=== PATIENT | female | born 1945 | race Caucasian/White ===

== ENCOUNTER → 2017-09-18 10:59 | Outpatient (CLI) | payer MEDICARE, SELFPAY ==
[2017-09-18 12:50] LABS: Hemoglobin A1c 5.5 % (4.2-6.3)
[2017-09-18 12:52] LABS: Vitamin B12 > 2000 pg/mL (211-911)
[2017-09-18 12:53] LABS: Rheumatoid Factor < 10.0 IU/mL (<15); Thyroid Stim Hormone (TSH) 1.64 uIU/mL (0.358-3.74)
[2017-09-19 14:07] LABS: SJOGREN'S Anti-SS-A test < 0.2 AI (0.0-0.9); SJOGREN'S Anti-SS-B test < 0.2 AI (0.0-0.9)
[2017-09-19 15:54] LABS: ANTINUCLEAR ANTIBODIES DIRECT Negative (Negative)
[2017-09-20 20:09] LABS: Albumin, Ur 23.4 % (.); Alpha-1-Globulin, Ur 4.6 % (.); Alpha-1-Globulins 0.2 g/dL (0.0-0.4); Alpha-2-Globulins 0.9 g/dL (0.4-1.0); Alpha-2-Globulins, Ur 14.4 % (.); Beta Globulin, Ur 23.1 % (.); Cytoplasmic Ab (C-ANCA) <1:20 titer (Neg:<1:20); Gamma Globulin 0.9 g/dL (0.4-1.8); Gamma Globulin, Ur 34.5 % (.); Immunoglobulin A 113 mg/dL (64-422); Immunoglobulin G 698 mg/dL (700-1600); Immunoglobulin M 74 mg/dL (26-217); M-Spike, Ur % Not Observed % (Not Observed); PROEL- TOTAL PROTEIN 7.2 g/dL (6.0-8.5); Total Protein, Ur 7.2 mg/dL (Not Estab.)
[2017-09-21 13:42] LABS: Perinuclear Ab (P-ANCA) <1:20 titer (Neg:<1:20)
== END ==
PROVIDERS: Family Provider Internal Medicine; PCP Internal Medicine; Visit Provider Psychiatry & Neurology Neurology
DX: G62.9 Polyneuropathy, unspecified (principal)
CPT/HCPCS: 36415; 82607; 82784; 83036; 84165; 84166; 84443; 86038; 86235; 86256; 86334; 86335; 86431

== ENCOUNTER → 2017-11-06 12:02 | Outpatient (CLI) | payer MEDICARE, MEDICAID, SELFPAY ==
--- NOTE | 2017-11-06 12:09 | MRI_ITS ---
STUDY: MRA OF THE HEAD WITHOUT CONTRAST REASON FOR EXAM: Female, 72 years old. RT EAR PULSITILE TINNITUS, BILAT HEARING LOSS TECHNIQUE: 3-D hhuw-kf-yvvnal (TOF) imaging was performed with MIPs. The study was performed unenhanced. COMPARISON: None. FINDINGS: Normal bilateral petrous carotid arteries. Normal right cavernous carotid artery with a normal supraclinoid bifurcation. Normal left cavernous carotid artery with a normal supraclinoid bifurcation. Normal right A1 segments of the anterior cerebral artery. Normal left A1 segments of the anterior cerebral artery. Normal intact anterior communicating artery (ACOM). Normal bilateral A2 segments of the anterior cerebral arteries. Normal right M1 and M2 segments of the middle cerebral arteries, with a normal M1 bifurcation. Normal left M1 and M2 segments of the middle cerebral arteries, with a normal M1 bifurcation. 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 Normal left posterior communicating artery (PCOM). Normal bilateral vertebral arteries. Normal basilar artery with a normal basilar bifurcation. The visualized bilateral superior cerebellar (SCA) arteries are normal. Normal bilateral P1, P2 and visualized P3 segments of the posterior cerebral arteries. There is no demonstrated aneurysm of the [place]. There is no major vessel occlusion or hemodynamically significant stenosis. There is no demonstrated abnormality of the visualized brain. MRI/MRA Head ONLY without Contrast IMPRESSION: Unremarkable MRA of the head Electronically Signed: Mason Mathews MD at 13:34 EDT Tel , Service support ,
--- NOTE | 2017-11-06 12:09 | MRI_ITS ---
STUDY: MRI BRAIN WITH AND WITHOUT CONTRAST REASON FOR EXAM: Female, 72 years old. RT EAR PULSITILE TINNITUS, BILAT HEARING LOSS. TECHNIQUE: Standardized multiplanar fat and water weighted pulse sequences were obtained. 10 ml of Gadavist contrast material was administered intravenously for the contrast portion of the examination. COMPARISON: None. FINDINGS: Normal size of the ventricles and extra-axial spaces for the patient's age. There are a limited number of small white matter hyperintensities, distributed throughout the deep white matter tracts of the cerebral hemispheres, consistent with mild chronic white matter ischemic changes. Normal bilateral temporal bones. Normal bilateral internal auditory canals. There is no demonstrated intracanalicular or cisternal vestibular schwannoma (acoustic neuroma). There is no enhancement of the bilateral VIIth or VIIIth cranial nerves. Normal bilateral cochlea, vestibules and semicircular canals. Normal bilateral basal ganglia. Normal thalami. There is no extra-axial fluid accumulation. Normal flow voids within the major intracranial circulation suggesting patency by spin echo criteria. Normal venous enhancement. There is no enhancing intra-axial or extra-axial abnormality. Normal sella turcica, pituitary gland, infundibular stalk, optic chiasm and hypothalamus. Normal tectal plate and pineal gland. Normal midbrain, uma and medulla. Normal cerebellum. Normal basal cisterns. Normal bilateral temporal bones. Normal bilateral internal auditory canals. MRI/Brain W/WO Contrast IMPRESSION: There is no demonstrated intracanalicular or cisternal vestibular schwannoma (acoustic neuroma). Electronically Signed: Mason Mathews MD at 15:54 EDT Tel , Service support ,
[2017-11-06 16:21] LABS: CREATININE FINGERSTICK 0.8 mg/dL (0.55-1.02); EGFR FINGERSTICK > 60.0000 mL/min (>60)
== END ==
PROVIDERS: Family Provider Internal Medicine; PCP Internal Medicine; Visit Provider Internal Medicine
DX: H93.A1 Pulsatile tinnitus, right ear (principal)
CPT/HCPCS: 70544; 70553; A9585

== ENCOUNTER → 2017-12-03 14:27 | Outpatient (CLI) | payer MEDICARE, SELFPAY ==
--- NOTE | 2017-12-03 14:30 | BI_ITS ---
MAMMOGRAPHY - BILATERAL SCREENING REASON FOR EXAM: Female, 72 years old. Routine annual screening examination. PERTINENT HISTORY: Sisters with breast cancer. TECHNIQUE: Digital bilateral breast abdullahi (3D mammographic acquisition) in the CC and MLO projections. 2-D mediolateral oblique (MLO) and craniocaudad (CC) views of both breasts were obtained. CAD: Full Field Digital Mammography with Computer Added Detection was performed. COMPARISON: Comparison is made with prior study dated October 25, 2016 and October 19, 2015. FINDINGS: Breast Composition: There are scattered areas of fibroglandular density. There are no dominant masses or suspicious calcifications. No other significant abnormalities are identified. There has been no significant change since the prior study. BI/SCREENING MAMM (CAD), BILAT IMPRESSION: Stable bilateral screening mammogram. Yearly follow-up mammogram recommended. (A) ASSESSMENT CATEGORY: BIRADS Category 1: Negative. A letter regarding these results will be sent to the patient by the facility within 30 days. Approximately 10% of breast cancers are not detected by mammography. A normal mammogram should not delay biopsy of a clinically suspicious abnormality. [id number] Electronically Signed: John Mahajan MD at 10:05 EDT Tel [phone], Service support ,
--- NOTE | 2017-12-03 14:32 | BD_ITS ---
STUDY: DUAL ENERGY X-RAY ABSORPTIOMETRY / DXA REASON FOR EXAM: Female, 72 years old. The patient is postmenopausal. Loss of height. TECHNIQUE: Bone Mineral Density (BMD) measurements of lumbar spine and bilateral hips were obtained. COMPARISON: Comparison is made with prior study dated March 30, 2015. FINDINGS: Lumbar Spine (L1-L4): g/cm2 (0.899) / T-score (-2.3) / Z-score (-0.5) Findings are suggestive of osteopenia with a moderate fracture risk. Left Femur Total: g/cm2 (0.830) / T-score (-1.4) / Z-score (0.3) Left Femoral Neck: g/cm2 (0.896) / T-score (-1.0) / Z-score (0.9) Right Femur Total: g/cm2 (0.810) / T-score (-1.6) / Z-score (0.1) Right Femoral Neck: g/cm2 (0.866) / T-score (-1.2) / Z-score (0.7) The T-Scores on the most recent prior examination were: Lumbar Spine (L1-L4): There has been worsening of bone density since the previous examination. Left Femur Total: which represents an improvement of 5.1%. Right Femur Total: which represents an improvement of 0.6%. BD/Dexa Bone Density Study IMPRESSION: The patient is considered osteopenic as outlined below according to World Larry Organization (WHO) criteria with a moderate fracture risk. There has been worsening of bone density since the previous examination. Reference Information: The T-score is the number of standard deviations above or below the standard which is normal for young adults at their peak bone mineral density. The World Health Organization (WHO) interprets the T-scores as follows: Above -1 Normal bone density Between -1 and -2.5 Osteopenia Equal to / or below -2.5 Osteoporosis As a practical clinical guideline, osteopenia may be graded as follows: Mild -1 through -1.5 Moderate -1.6 through -2.0 Severe -2.1 through -2.4 The Z-score is the number of standard deviations above or below age-matched controls. A Z-score of less than -1.5 would be considered abnormal. References: 1. NIH Osteoporosis and Related Bone Diseases http://www.osteo.org 2. International Society for Clinical Densitometry http://www.iscd.org 3. National Osteoporosis Foundation http://www.nof.org Electronically Signed: John Mahajan MD at 15:24 EDT Tel [phone], Service support ,
== END ==
PROVIDERS: Family Provider Internal Medicine; PCP Internal Medicine; Visit Provider Internal Medicine
DX: Z12.31 Encounter for screening mammogram for malignant neoplasm of breast (principal); Z78.0 Asymptomatic menopausal state
CPT/HCPCS: 77063; 77067; 77080

== ENCOUNTER → 2018-01-22 12:41 | Outpatient (CLI) | payer MEDICARE, MEDICAID, SELFPAY ==
[2016-10-01 13:27] VITALS: BMI 31.1
--- NOTE | 2018-01-22 14:11 | NEURO ---
NCS and/or EMG Patient Report Ordering Doctor: Debbie Carranza DATE OF SERVICE: 01/22/18 Shanthi Earl is a 72-year-old female presents for electrodiagnostic testing of the lower limbs. She reports pain in her feet and difficulty with balance. Electrodiagnostic findings: Normal peroneal motor response is noted with measurement at the tibialis anterior. Normal tibial motor response on the left side. Delayed right tibial conduction velocity. Absent sensory responses. Prolonged H reflex bilaterally. Prolonged right tibial F wave. Needle EMG testing showed no evidence of denervation with normal motor unit action potentials. Electrodiagnostic assessment: This is an abnormal study in the lower limbs. 1. Electrodiagnostic findings consistent with peripheral polyneuropathy, with primary involvement of sensory nerve fibers. 2. Electrodiagnostic evidence is noted for lumbosacral radiculopathy. If there are any further questions, please do not hesitate to contact me
== END ==
PROVIDERS: Family Provider Internal Medicine; PCP Internal Medicine; Referring Provider Psychiatry & Neurology Neurology; Visit Provider Psychiatry & Neurology Neurology
DX: G62.9 Polyneuropathy, unspecified (principal); R20.0 Anesthesia of skin; R20.2 Paresthesia of skin
CPT/HCPCS: 95886; 95913

== ENCOUNTER 2018-06-16 10:17 | Inpatient (IN) | payer MEDICARE, MEDICAID, SELFPAY ==
[2018-06-06 11:30] VITALS: BP 133/75; PULSE 73; RESP 16; TEMP 36.5; O2SAT 91; BMI 30.8
--- NOTE | 2018-06-06 11:42 | SDCEKG_ITS ---
Test Reason : Blood Pressure : / mmHG Vent. Rate : 068 BPM Atrial Rate : 068 BPM P-R Int : 156 ms QRS Dur : 096 ms QT Int : 398 ms P-R-T Axes : 038 -07 067 degrees QTc Int : 423 ms Normal sinus rhythm Normal ECG Confirmed by NARCISA JOSHI, BOYD ([id number]), photo editor ANNIA MALDONADO ([id number]) on 06/09/2018 10:36:50 AM Referred By: Fredy Campos Confirmed By:BOYD BREWSTER MD
[2018-06-06 12:26] LABS: Absolute Lymphocyte Count 1.41 X10^3/ul (0.83-4.51); Absolute Neutrophil Count 4.4 X10^3/uL (2.0-7.7); Basophil# 0.02 X10^3/uL; Basophil% 0.3 % (0-1); Eosinophil# 0.11 X10^3/uL; Eosinophils% 1.7 % (0-5); Hematocrit 36.9 % (37-47); Hemoglobin 11.8 g/dl (12.0-15.0); Lymphocyte # 1.41 X10^3/ul (4.0); Lymphocyte % 21.4 % (19-41); Mean Corpuscular Hgb 30.6 pg (27.0-32.0); Mean Corpuscular Volume 95.6 fL (81-99); Mean Platelet Vol. 9.6 fl (6.2-12.0); Monocyte# 0.64 X10^3/uL; Monocyte% 9.7 % (0-10); Neutrophil # 4.41 X10^3/uL (2.7-7.7); Neutrophil % 66.7 % (47-70); Platelet Count 302 K/mm3 (150-450); RBC Distribution Width CV 13.6 % (11.6-14.6); Red Blood Count 3.86 M/mm3 (4.2-5.4); White Blood Count 6.6 K/mm3 (4.4-11.0)
[2018-06-06 12:33] LABS: POSITIVE COUNT NO; POSITIVE DIFFERENTIAL NO; POSITIVE MORPHOLOGY NO
[2018-06-06 13:03] LABS: Anion Gap 6 (5-15); BUN 19 mg/dL (7-18); BUN/Creat Ratio 15.7 RATIO (10-20); Calcium,Total 9.2 mg/dL (8.5-10.1); Chloride 104 mmol/L (98-107); Creatinine, Serum 1.21 mg/dL (0.55-1.02); EST Glomerular Filtration Rate 46 mL/min (>60); Est Glom Filt Rate - Afr Amer 56 mL/min (>60); Estimated Creatinine Clearance 40.52 ml/min; Glucose 81 mg/dL (74-106); Sodium Level 138 mmol/L (136-145)
[2018-06-16] VITALS (10 sets, daily range): BP systolic 92–143; BP diastolic 50–88; PULSE 50–98; RESP 14–18; TEMP 36.2–37.2; O2SAT 95–99; BMI 30.8
--- NOTE | 2018-06-16 | HIP_PTH ---
PATIENT: CHARISMA NEGRO LOC: MS3 U#:[id number] AGE/SX: 73/F ROOM: MS319 RE06/16/[address]: Dr. Fredy Campos DO : 1945 BED: 1 DIS: 06/18/2018 SPEC #: [id number] RECD: 06/17/18 07:29 STATUS: DALLIN REQ #: [id number] MIGUEL A: 06/16/18 00:[address]: Fredy Campos DEPT: SURGICAL PATHOLOGY RECD BY: Steven An ENTERED: 06/17/18 12:14 SP TYPE: TOTAL HIP OTHR DR: Dr. Fay Day DO Tissues: Hip, NOS Procedures: Decalcification bone/plaque Surgery Specimen Level IV HEADER OPERATION: Total hip replacement PRE-OP DIAGNOSIS: Endstage osteoarthritis left hip TISSUE SUBMITTED: Left hip bone MICROSCOPIC DIAGNOSIS Left hip bone, total hip replacement/resection: Femoral head with degenerative osteoarthritic changes. Fragments of fibroadipose tissue, fibroconnective tissue and synovial tissue. VONDA:janeen 06/20/18 MICROSCOPIC DESCRIPTION Slides are reviewed. GROSS DESCRIPTION Received is one container labeled with the patient's name and designated bone and soft tissue hip, left. The specimen consists of a ott femoral head with portion of femoral neck. The femoral head measures 5 x 5.5 x 5 cm and the femoral neck measures up to 2 cm in length. The articular surface displays prominent osteophyte formation, eburnation and bone erosion. Also present in the specimen container are multiple irregular fragments of bone reamings and pink-yellow soft tissue measuring in aggregate 7 x 7 x 2 cm. Whizzer sections are submitted in two cassettes as follows: 1 - soft tissue, 2 - bone after decalcification. / VONDA:janeen 06/17/18 TC:5 CPT: 79775, 17752
[2018-06-16] MEDS: oxyCODONE HCl Cr 10 MG Tablet PO (10:51)
[2018-06-16] MEDS: Celecoxib 200 MG Capsule 400 MG PO (10:51)
[2018-06-16] MEDS: Acetaminophen 500 MG Tablet 1000 MG PO ×2 (10:52→21:55)
[2018-06-16] MEDS: Cefazolin 2 GM in 0.9% Normal Saline 100 ML IV (12:57)
--- NOTE | 2018-06-16 14:37 | PCM.OPRPT ---
Report of Operation Date of Procedure: 06/16/18 Pre-Operative Diagnosis: OA left hip Post-Operative Diagnosis: same Surgery/Procedure Performed:: Left THR Description of Surgical Findings:: Primary Surgeon/Physician: Fredy Campos campus receptionist: Mikhail Craig PA-C campus receptionist: Pre-Operative Diagnosis: OA left hip Post-Operative Diagnosis: same Surgery/Procedure Performed: Left total hip replacement Estimated Blood Loss: 150 cc Specimen's Removed: bone Type of Anesthesia: general after failed spinal ASA Class: ASA3 Severe Disease Implants: [[place] Trident size 52 mm cup, Accolade type 2 size 7 stem. neutral MDM liner ] Surgical Indications: Patient has severe end-stage osteoarthritic changes in the [left ] hip. They have failed conservative measures including activity modification, anti-inflammatories, use of assistive devices. This to the point where the pain affects their ability to enjoy life and complete activities of daily living without discomfort. Patient has elected to undergo the above procedure Procedure Description: The patient was greeted in the preoperative area the [left ] hip was marked with surgical marker preoperative antibiotics administered. The patient was then taken to or suite in stable condition. Preoperative tranexamic acid was also utilized. Once the patient was placed in the supine position on the operating room table and once adequate anesthesia was obtained they were then placed in the lateral decubitus position with the surgical hip facing the field. All bony prominences were well-padded. A commercial hip position was utilized. The appropriate extremity was then prepped and draped in usual sterile fashion. Ioban was placed on the skin. Surgical timeout was performed and surgery was commenced. A standard posterior approach to the hip was then performed. Incision was planned and carried out with a #10 blade scalpel. Dissection was then carried length of the incision to the IT band which was split proximally and distally. A Charnley retractor was then placed for soft tissue retraction exposing the piriformis. A standard posterior capsulotomy was performed. Severe eburnation of bone was noted and periarticular osteophytes were identified consistent with severe end-stage osteoarthritis. A femoral neck osteotomy guide was used to yanet the proximal femur. A femoral osteotomy was then created approximately 1 fingerbreadth above the lesser trochanter. This was measured and placed on the back table. Once this was complete acetabular retractors were placed anteriorly and posteriorly. Labrum was then removed from the acetabulum exposing the entire cup of the acetabulum. Sequential reaming was then commenced and the acetabulum was medialized and sequentially widened in order to accommodate appropriate size cup. The acetabular cup was then impacted into position to the appropriate depth referencing approximately 30? anteversion and 45? of inclination. Excellent purchase was obtained. [2] appropriate sized cancellous screws were placed in the cup. An appropriate size MDM liner was then placed. Attention was then turned to the femoral preparation. The hip was placed in the 90/90 position and a lateralizing box osteotome was utilized. Femoral starting awl was used followed by sequential broaching to the appropriate size. Excellent purchase was obtained with the stem no stem subsidence and excellent rotational stability was confirmed. A calcar reamer was then used in the trial head neck was placed on the broach. The hip was then located and taken through full range of motion flexion internal and external rotation as well as extension. Excellent stability was noted no impingement was identified of the components and leg lengths appear to be appropriate. The hip was at this point dislocated and the trial femoral components were removed. The final femoral stem was then implanted and impacted to the appropriate depth. Again excellent purchase was obtained no stem subsidence or rotational instability was noted. The hip was once again trialed and confirmation of leg length and stability was performed. Soft tissue tension also appeared to be appropriate. At this point the hip was redislocated and the trunnion was cleaned and dried meticulously in the appropriate size MDM femoral head was placed on the clean dry trunnion using a 12/14 Quach taper. The hip was once again relocated and again taken through full range of motion. I did inject a cocktail of postoperative pain medication in the deep and superficial tissues. Copious irrigation was performed. Anatomic closure of the piriformis tendon was performed through drill holes in the greater trochanter. A #1 Vicryl 0 Vicryl was utilized in subcutaneous tissue and surgical jeanette were placed in the skin. A well-padded nonadherent dressing was applied. Patient was taken to PACU in stable condition. No complications were identified. Will follow standard postop protocol for total hip arthroplasty. My campus administrative assistant played a vital role in the procedure beginning with positioning, holding retraction of soft tissues, positioning the leg to optimize visualization during the procedure and assisting with wound closure. campus receptionist: Mikhail Craig Type of Anesthesia:: General Anesthesiologist: Robert Guadalupe Specimen's removed: bone Estimated Blood Loss (mL): 150 cc - Admit VTE Documentation VTE Present on Admission: No VTE Mechan Device Prophylaxis: SCD's, Thigh High PHILIP Gideone VTE Pharm Prophylaxis ordered?: Yes
--- NOTE | 2018-06-16 14:41 | OP.PCM_ITS ---
Report of Operation Date of Procedure: 06/16/18 Pre-Operative Diagnosis: OA left hip Post-Operative Diagnosis: same Surgery/Procedure Performed:: Left THR Description of Surgical Findings:: Primary Surgeon/Physician: Fredy Campos foreign legal consultant: Mikhail Craig PA-C foreign legal consultant: Pre-Operative Diagnosis: OA left hip Post-Operative Diagnosis: same Surgery/Procedure Performed: Left total hip replacement Estimated Blood Loss: 150 cc Specimen's Removed: bone Type of Anesthesia: general after failed spinal ASA Class: ASA3 Severe Disease Implants: [[place] Trident size 52 mm cup, Accolade type 2 size 7 stem. neutral MDM liner ] Surgical Indications: Patient has severe end-stage osteoarthritic changes in the [left ] hip. They have failed conservative measures including activity modification, anti-inflammatories, use of assistive devices. This to the point where the pain affects their ability to enjoy life and complete activities of daily living without discomfort. Patient has elected to undergo the above procedure Procedure Description: The patient was greeted in the preoperative area the [left ] hip was marked with surgical marker preoperative antibiotics administered. The patient was then taken to or suite in stable condition. Preoperative tranexamic acid was also utilized. Once the patient was placed in the supine position on the operating room table and once adequate anesthesia was obtained they were then placed in the lateral decubitus position with the surgi jigar hip facing the field. All bony prominences were well-padded. A commercial hip position was utilized. The appropriate extremity was then prepped and draped in usual sterile fashion. Ioban was placed on the skin. Surgical timeout was performed and surgery was commenced. A standard posterior approach to the hip was then performed. Incision was planned and carried out with a #10 blade scalpel. Dissection was then carried length of the incision to the IT band which was split proximally and distally. A Charnley retractor was then placed for soft tissue retraction exposing the piriformis. A standard posterior capsulotomy was performed. Severe eburnation of bone was noted and periarticular osteophytes were identified consistent with severe end-stage osteoarthritis. A femoral neck osteotomy guide was used to yanet the proximal femur. A femoral osteotomy was then created approximately 1 fingerbreadth above the lesser trochanter. This was measured and placed on the back table. Once this was complete acetabular retractors were placed anteriorly and posteriorly. Labrum was then removed from the acetabulum exposing the entire cup of the acetabulum. Sequential reaming was then commenced and the acetabulum was medialized and sequentially widened in order to accommodate appropriate size cup. The acetabular cup was then impacted into position to the appropriate depth referencing approximately 30? anteversion and 45? of inclination. Excellent purchase was obtained. [2] appropriate sized cancellous screws were placed in the cup. An appropriate size MDM liner was then placed. Attention was then turned to the femoral preparation. The hip was placed in the 90/90 position and a lateralizing box osteotome was utilized. Femoral starting awl was used followed by sequential broaching to the appropriate size. Excellent purchase was obtained with the stem no stem subsidence and excellent rotational stability was confirmed. A calcar reamer was then used in the trial head neck was placed on the broach. The hip was then located and taken through full range of motion flexion internal and external rotation as well as extension. Excellent stability was noted no impingement was identified of the components and leg lengths appear to be appropriate. The hip was at this point dislocated and the trial femoral components were removed. The final femoral stem was then implanted and impacted to the appropriate depth. Again excellent purchase was obtained no stem subsidence or rotational instability was noted. The hip was once again trialed and confirmation of leg length and stability was performed. Soft tissue tension also appeared to be appropriate. At this point the hip was redislocated and the trunnion was cleaned and dried meticulously in the appropriate size MDM femoral head was placed on the clean dry trunnion using a 12/14 Quach taper. The hip was once again relocated and again taken through full range of motion. I did inject a cocktail of postoperative pain medication in the deep and superficial tissues. Copious irrigation was performed. Anatomic closure of the piriformis tendon was performed through drill holes in the greater trochanter. A #1 Vicryl 0 Vicryl was utilized in subcutaneous tissue and surgical jeanette were placed in the skin. A well-padded nonadherent dressing was applied. Patient was taken to PACU in stable condition. No complications were identified. Will follow standard postop protocol for total hip arthroplasty. My plastic surgery assistant played a vital role in the procedure beginning with positioning, holding retraction of soft tissues, positioning the leg to optimize visualization during the procedure and assisting with wound closure. foreign legal consultant: Mikhail Craig Type of Anesthesia:: General Anesthesiologist: Robert Guadalupe Specimen's removed: bone Estimated Blood Loss (mL): 150 cc - Admit VTE Documentation VTE Present on Admission: No VTE Mechan Device Prophylaxis: SCD's, Thigh High PHILIP Hose VTE Pharm Prophylaxis ordered?: Yes
--- NOTE | 2018-06-16 15:16 | RAD_ITS ---
STUDY: X-RAY - PELVIS AND LEFT HIP REASON FOR EXAM: Female, 73 years old. Left hip replacement TECHNIQUE: 2 views of the pelvis and hip. COMPARISON: 09/07/2016 FINDINGS: Patient is status post left hip arthroplasty. No evidence of acute hardware failure or loosening. No fracture or dislocation. Expected postoperative soft tissue changes. Stable right hip degenerative changes. RAD/Hip Min 2 Views (Portable) IMPRESSION: Postsurgical changes of the left hip as above Electronically Signed: Ricky Miguel DO at 15:37 EDT Tel , Service support ,
[2018-06-16 15:48] LABS: Anion Gap 2 (5-15); BUN 18 mg/dL (7-18); BUN/Creat Ratio 16.8 RATIO (10-20); Calcium,Total 8.4 mg/dL (8.5-10.1); Chloride 110 mmol/L (98-107); Creatinine, Serum 1.07 mg/dL (0.55-1.02); EST Glomerular Filtration Rate 53 mL/min (>60); Est Glom Filt Rate - Afr Amer 64 mL/min (>60); Estimated Creatinine Clearance 45.83 ml/min; Glucose 102 mg/dL (74-106); Potassium 4.1 mmol/L (3.5-5.1); Sodium Level 140 mmol/L (136-145)
[2018-06-16 15:51] LABS: Hematocrit 31.7 % (37-47); Hemoglobin 10.2 g/dl (12.0-15.0); Mean Corp Hgb Conc 32.2 g/gl (32-36); Mean Corpuscular Hgb 31.1 pg (27.0-32.0); Mean Corpuscular Volume 96.6 fL (81-99); Mean Platelet Vol. 9.3 fl (6.2-12.0); Platelet Count 260 K/mm3 (150-450); RBC Distribution Width CV 13.8 % (11.6-14.6); RBC Distribution Width SD 48.7 fl (35.1-43.9); Red Blood Count 3.28 M/mm3 (4.2-5.4); White Blood Count 7.1 K/mm3 (4.4-11.0)
[2018-06-16 15:56] LABS: Scan Indicated on CBC? Y/N NO
[2018-06-16] MEDS: oxyCODONE 5 MG Tablet PO (18:28)
[2018-06-16] MEDS: Aspirin 325 MG Tablet PO (18:29)
[2018-06-16] MEDS: Lactated Ringers 1,000 ML 125 ML IV (20:39)
[2018-06-16] MEDS: Senna/Docusate Sodium 1 Tablet 2 TABLET PO (21:54)
[2018-06-16] MEDS: Mirtazapine 15 MG Tablet 7.5 MG PO (21:55)
[2018-06-16] MEDS: lamoTRIgine 100 MG Tablet PO (21:55)
[2018-06-16] MEDS: buPROPion (SR) 100 MG TABLET.SA 200 MG PO (21:55)
[2018-06-16] MEDS: Atorvastatin Calcium 40 MG Tablet PO (21:56)
[2018-06-16] MEDS: Cefazolin 1 GM/50 ML BAG IV (22:00)
[2018-06-17 02:30] VITALS: BP 105/60; PULSE 84; RESP 18; TEMP 36.4; O2SAT 94
[2018-06-17] MEDS: Lactated Ringers 1,000 ML 125 ML IV (05:20)
[2018-06-17] MEDS: Ketorolac 15 MG/ML Vial IV (05:20)
[2018-06-17] MEDS: Acetaminophen 500 MG Tablet 1000 MG PO ×3 (05:22→21:48)
[2018-06-17] MEDS: Cefazolin 1 GM/50 ML BAG IV (06:17)
[2018-06-17 06:18] LABS: Hematocrit 30.1 % (37-47); Hemoglobin 9.5 g/dl (12.0-15.0); Mean Corp Hgb Conc 31.6 g/gl (32-36); Mean Corpuscular Hgb 31.1 pg (27.0-32.0); Mean Corpuscular Volume 98.7 fL (81-99); Platelet Count 233 K/mm3 (150-450); RBC Distribution Width CV 13.9 % (11.6-14.6); RBC Distribution Width SD 47.3 fl (35.1-43.9); Red Blood Count 3.05 M/mm3 (4.2-5.4)
[2018-06-17 06:22] LABS: Scan Indicated on CBC? Y/N NO
[2018-06-17 06:32] LABS: Anion Gap 6 (5-15); BUN 18 mg/dL (7-18); BUN/Creat Ratio 17.5 RATIO (10-20); Calcium,Total 8.2 mg/dL (8.5-10.1); Chloride 107 mmol/L (98-107); Creatinine, Serum 1.03 mg/dL (0.55-1.02); EST Glomerular Filtration Rate 56 mL/min (>60); Est Glom Filt Rate - Afr Amer 67 mL/min (>60); Estimated Creatinine Clearance 47.61 ml/min; Glucose 87 mg/dL (74-106); Potassium 4.4 mmol/L (3.5-5.1); Sodium Level 142 mmol/L (136-145)
[2018-06-17 07:03] VITALS: O2SAT 94
--- NOTE | 2018-06-17 07:47 | PN.ORTHO_ITS ---
Subjective: Patient sitting at bedside eating breakfast. Patient states pain is well managed. She denies chest pain, shortness of breath, calf pain, nausea vo miting. Patient states she is waiting on word of possibly being admitted to [facility] for for rehab. Patient is unable to return home as she lives by herself. Objective: Dressing is clean dry intact, negative signs and symptoms of DVT. Vital signs labs within normal limits. Patient is afebrile neurovascular is otherwise intact. Patient is no respiratory distress, speaking full sentences. - Physical Exam General: Alert, Oriented x3, Cooperative HEENT: PERRLA Oral: Moist Mucosa Neurological: Cranial nerves II-XII grossly intact Psych/Mental Status: Normal Affect, Alert and oriented to time, place, person, mood and affect Vital Signs Temp Pulse Resp BP Pulse Ox 97.5 F L 84 18 105/60 94 06/17/18 02:30 06/17/18 02:30 06/17/18 02:30 06/17/18 02:30 06/17/18 02:30 Oxygen Flow Rate (L/min) 2 Oxygen Delivery Method Nasal Cannula Weight: 92 kg Body Mass Index (BMI) 30.8 Intake and Output for Last 24 Hours 06/15/18 06/16/18 06/17/18 23:59 23:59 23:59 Intake Total 1300 / 1300 2201 / 2201 Balance 1300 / 1300 2201 / 2201 Laboratory Tests Past 24 Hrs 06/16/18 06/16/18 06/17/18 15:28 15:28 05:44 WBC 7.1 8.0 RBC 3.28 L 3.05 L Hgb 10.2 L 9.5 L Hct 31.7 L 30.1 L MCV 96.6 98.7 MCH 31.1 31.1 MCHC 32.2 31.6 L RDW 13.8 13.9 RDW Differential 48.7 H 47.3 H Plt Count 260 233 MPV 9.3 10.0 Sodium 140 Potassium 4.1 Chloride 110 H Carbon Dioxide 28.0 Anion Gap 2 L BUN 18 Creatinine 1.07 H Estim Creat Clear Calc 45.83 Est GFR (MDRD) Af Amer 64 Est GFR (MDRD) Non-Af 53 L BUN/Creatinine Ratio 16.8 Glucose 102 Calcium 8.4 L 06/17/18 05:44 WBC RBC Hgb Hct MCV MCH MCHC RDW RDW Differential Plt Count MPV Sodium 142 Potassium 4.4 Chloride 107 Carbon Dioxide 29.0 Anion Gap 6 BUN 18 Creatinine 1.03 H Estim Creat Clear Calc 47.61 Est GFR (MDRD) Af Amer 67 Est GFR (MDRD) Non-Af 56 L BUN/Creatinine Ratio 17.5 Glucose 87 Calcium 8.2 L Medical Necessity - Tobacco Use Smoking Status: Never smoker Assessment/Plan Status post left total hip arthroplasty Plan 1. Continue all pain medications as prescribed 2. Continue physical therapy today, weight-bear as tolerated with walker. 3. Aspirin 325 mg 1 p.o. every 12 hours x30 days for postop DVT prophylaxis 4. Encourage incentive spirometry 5. Possible discharge tomorrow to [facility] 4th floor rehab
[2018-06-17 09:25] VITALS: BP 117/57; PULSE 65; RESP 16; TEMP 36.6; O2SAT 97
[2018-06-17] MEDS: Aspirin 325 MG Tablet PO ×2 (09:31→17:28)
[2018-06-17] MEDS: Citalopram 20 MG Tablet PO (09:31)
[2018-06-17] MEDS: Pantoprazole Sodium 20 MG Tablet PO (09:31)
[2018-06-17] MEDS: amLODIPine 5 MG Tablet PO (09:31)
[2018-06-17] MEDS: DULoxetine Hcl 60 MG Capsule PO (09:31)
[2018-06-17] MEDS: Senna/Docusate Sodium 1 Tablet 2 TABLET PO ×2 (09:32→21:49)
[2018-06-17] MEDS: Lisinopril 10 MG Tablet PO (09:32)
[2018-06-17] MEDS: 0.9% NaCl Peripheral Flush Adult/Peds IV (09:32)
[2018-06-17] MEDS: hydroCHLOROthiazide 25 MG Tablet PO (09:32)
--- NOTE | 2018-06-17 09:50 | CASEMGMT ---
Social Work Note Per physician note, pt is wanting [facility] at [facility] and pt should be medically cleared for discharge tomorrow. HOWIE placed a call to Misty with RU who states she is able to accept pt tomorrow. HOWIE met with pt, introduced self and role at [facility]. Pt is alert and orientated x3. Pt confirms she would like [facility] at discharge. SW explained that [facility] is able to accept pt tomorrow. Pt states understanding. Plan: [facility] tomorrow Melvina Le BAKERY MACHINE MECHANIC SUPERVISOR, HEALTH EDUCATION COORDINATOR
[2018-06-17] MEDS: oxyCODONE 5 MG Tablet PO ×2 (11:48→21:51)
--- NOTE | 2018-06-17 13:24 | PCA ---
pt in therapy
[2018-06-17 14:15] VITALS: BP 94/72; PULSE 68; RESP 14; TEMP 36.7; O2SAT 93
--- NOTE | 2018-06-17 16:03 | CHAPLAIN ---
Type of Pastoral Visit _x__ Initial Visit ___ Follow-up Visit ___ On-call Visit ___ General Patient Visit ___ Spiritual Assessment ___ Family Conference ___ Bereavement ___ Rapid Response ___ Code Blue ___ Other (describe below) Pastoral Care Referral From _x__ Patient ___ Family ___ Nurse ___ Physician ___ Blocker And Sewer ___ Gill Box Tender ___ Other (describe below) Sacrament/Intervention _x__ Active listening ___ Anointing ___ Adventist ___ Bereavement ___ Communion ___ Gloria exploration ___ ___ Life review _x__ Prayer ___ Reconciliation ___ Sacrament of Sick _x__ Supportive presence ___ Wedding ___ Other (describe below) Pastoral Comments
[2018-06-17 20:15] VITALS: BP 106/62; PULSE 65; RESP 18; TEMP 36.8; O2SAT 94
[2018-06-17] MEDS: Mirtazapine 15 MG Tablet 7.5 MG PO (21:49)
[2018-06-17] MEDS: lamoTRIgine 100 MG Tablet PO (21:49)
[2018-06-17] MEDS: buPROPion (SR) 100 MG TABLET.SA 200 MG PO (21:49)
[2018-06-17] MEDS: Atorvastatin Calcium 40 MG Tablet PO (21:52)
[2018-06-18 02:08] VITALS: BP 110/62; PULSE 59; RESP 18; TEMP 36.6; O2SAT 95
[2018-06-18] MEDS: Acetaminophen 500 MG Tablet 1000 MG PO ×2 (05:37→14:15)
[2018-06-18 07:24] VITALS: O2SAT 91
[2018-06-18] MEDS: DULoxetine Hcl 60 MG Capsule PO (08:22)
[2018-06-18] MEDS: Aspirin 325 MG Tablet PO (08:22)
[2018-06-18] MEDS: Senna/Docusate Sodium 1 Tablet 2 TABLET PO (08:23)
[2018-06-18] MEDS: Pantoprazole Sodium 20 MG Tablet PO (08:23)
[2018-06-18] MEDS: Lisinopril 10 MG Tablet PO (08:24)
[2018-06-18] MEDS: amLODIPine 5 MG Tablet PO (08:24)
[2018-06-18] MEDS: Citalopram 20 MG Tablet PO (08:25)
[2018-06-18] MEDS: hydroCHLOROthiazide 25 MG Tablet PO (08:25)
--- NOTE | 2018-06-18 08:26 | NURSING ---
sitting in chair. Therapy in ready to take her [facility]. Vitals taken, Scheduled meds given.
[2018-06-18 08:28] VITALS: BP 105/71; PULSE 81; RESP 18; TEMP 36.9; O2SAT 98
--- NOTE | 2018-06-18 11:47 | PN.ORTHO_ITS ---
Subjective: Patient sitting at bedside with her son at her side. Patient's pain is well managed. Denies chest pain, shortness breath, calf pain, nausea vomiting. Ready for discharge to [facility] 4th floor rehab. Objective: Dressing is clean dry intact. Negative signs or symptoms of DVT. Vital signs lab within normal limits. Patient is afebrile neurovascular is otherwise intact. Patient speaking in full sentences, with no obvious respiratory distress. - Physical Exam General: Alert, Oriented x3, Cooperative HEENT: PERRLA Oral: Moist Mucosa Neurological: Cranial nerves II-XII grossly intact Psych/Mental Status: Normal Affect, Alert and oriented to time, place, person, mood and affect Vital Signs Temp Pulse Resp BP Pulse Ox 98.4 F 81 18 105/71 98 06/18/18 08:28 06/18/18 08:28 06/18/18 08:28 06/18/18 08:28 06/18/18 08:28 Oxygen Flow Rate (L/min) 2 Oxygen Delivery Method Room Air Weight: 92 kg Body Mass Index (BMI) 30.8 Intake and Output for Last 24 Hours 06/16/18 06/17/18 06/18/18 23:59 23:59 23:59 Intake Total 1300 / 1300 2901 / 2901 500 / 500 Balance 1300 / 1300 2901 / 2901 500 / 500 Medical Necessity - Tobacco Use Smoking Status: Never smoker Assessment/Plan Status post left total hip arthroplasty Plan 1. Continue all pain medications as prescribed 2. Continue physical therapy , weight-bear as tolerated with walker. 3. Aspirin 325 mg 1 p.o. every 12 hours x30 days for postop DVT prophylaxis 4. Encourage incentive spirometry 5. Discharge today to [facility] fourth floor rehab 6. Follow-up as scheduled see pink sheet
--- NOTE | 2018-06-18 11:54 | DCINST_ITS ---
Discharge Diet: No Restrictions Discharge Activity: May Not Drive, May Shower, Use Walker May shower in (days): 1 - only if incision is dry and without drainage. Do NOT soak/submerge in tub/pool/dunham/stream/hot tub. May resume sexual activity in: No Restrictions Ice area for (Minutes): 20 - every hour while awake Weight Bearing Status: Weight bearing as tolerated Lifting Restrictions: 20 pounds Elevate: Operative Extremity Call your doctor if your incision/area has: Continuous Slow Oozing, Sudden Increased Bleeding, Increased Pain/ Swelling, Increased Redness, Foul Smelling Discharge Call your doctor if you observe: Fever of 101 or Higher, Inability to urinate, Inability to have a bowel movement, Shortness of breath, Fainting spells, Chest pain, Increased palpitations (irregular heartbeat), Calf discomfort, Uncontrolled pain Change Dressing in (Days):: 0 - Change daily and as needed. Remove Dressing in (days):: 8 Cleanse incision/area with: Soap & Water Additional Dressing/Incision Instructions:: Remove jeanette 06-27-2018 Allergies/Adverse Reactions: Allergies No Known Allergies Allergy (Verified 06/06/18 11:06) Medications to take at Discharge Amlodipine [Norvasc] 5 mg PO DAILY 02/05/14 Cholecalciferol (VIT D3) [Vitamin D3] 2,000 unit PO BID 02/05/14 Citalopram [Celexa] 20 mg PO DAILY 02/05/14 Hydrochlorothiazide [Hctz] 25 mg PO DAILY 02/05/14 Omeprazole [Prilosec] 20 mg PO DAILY 02/05/14 buPROPion SR [Wellbutrin SR (150mg tablets)] 200 mg PO QHS 05/04/14 Lisinopril [Zestril] 10 mg PO DAILY 09/27/16 Duloxetine Hcl [Cymbalta] 60 mg PO DAILY 06/06/18 Ibandronate Sodium [Boniva] 150 mg PO Q30D 06/06/18 Lamotrigine [Lamictal] 100 mg PO QHS 06/06/18 Mirtazapine 7.5 mg PO QHS 06/06/18 Rosuvastatin Calcium [Crestor] 10 mg PO QHS 06/16/18 Acetaminophen [Tylenol] 1,000 mg PO Q8 #90 tab 06/18/18 Aspirin 325 mg PO BIDCM #60 tab 06/18/18 Oxycodone [Oxyir] 5 - 10 mg PO Q4H PRN PRN 7 Days #60 tab 06/18/18 The following prescriptions were given: Oxycodone [Oxyir] 5 - 10 mg PO Q4H PRN PRN 7 Days #60 tab PRN Reason: Mod-Severe Pain (-11/27) Acetaminophen [Tylenol] 1,000 mg PO Q8 #90 tab Aspirin 325 mg PO BIDCM #60 tab Primary Care Physician: Fay Day DO [Primary Care Provider] - Test Results: Test results from this visit will be discussed in further detail at your follow- up appointment, if applicable. Please Follow Up With: Mikhail Craig PA-C When: As scheduled, see in pink sheet
--- NOTE | 2018-06-18 12:06 | CASEMGMT ---
Pt is discharged to rehab. SW spoke w/Misty in rehab earlier, let her know pt is discharged and will come to rehab today. SW faxed discharge instructions to the rehab unit. SW spoke w/pt and grandson in room, let them know pt is discharged to rehab today. Pt agreeable, she already let the rest of her family know she is going to rehab today. RN also aware pt can go to rehab whenever ready. No further needs, pt to rehab today. JOSESITO Patrick
--- NOTE | 2018-06-18 14:03 | NURSING ---
Report given to Judith MENDOZA in Rehab at this time.
[2018-06-18 14:10] VITALS: BP 113/57; PULSE 80; RESP 16; TEMP 36.7; O2SAT 96
== END 2018-06-18 14:30 | DRG 470 ==
LOC: ACINP 10:21 → MS3 11:41
PROVIDERS: Admitting Provider Orthopaedic Surgery; Family Provider Internal Medicine; PCP Internal Medicine; Referring Provider Orthopaedic Surgery; Visit Provider Orthopaedic Surgery
PROC: 0SRB0JZ Replacement of Left Hip Joint with Synthetic Substitute, Open Approach (ICD-10-PCS; CPT 27130; principal; 2018-06-16 12:10)
DX: M16.12 Unilateral primary osteoarthritis, left hip (principal)
CPT/HCPCS: 36415; 73502; 80048; 85025; 85027; 87081; 88305; 88311; 93005; 97110; 97163; 97166; 97530; 97535; 97802; C1776; J7120; A4216

== ENCOUNTER 2018-06-18 14:30 | Inpatient (IN) | payer MEDICARE, MEDICAID, SELFPAY ==
[2018-06-16 16:46] VITALS: BMI 30.8
[2018-06-18 14:48] VITALS: BP 121/68; PULSE 78; RESP 16; TEMP 36.8; O2SAT 92; BMI 31.8
--- NOTE | 2018-06-18 15:18 | HP.PCM.COS_ITS ---
History of Present Illness Date of Admission: 06/18/18 Chief Complaint: Debility secondary to Left THR The patient is a 73 year old F with PMH HTN, GERD, hyperlipidemia, depression, neuropathy, osteoporosis admitted to [facility] on 06/18/2018 with debility secondary to Left total hip replacement, for greater of 3 hours of therapy daily with a goal of returning back home at or near her prior level of functional dependence. Dr. Campos performed a Left total hip replacement on 06/16/2018 due to osteoarthritis at [facility]. 06/06/2018 preop EKG NSR. On 06/16/2018 Left hip post-op X-Ray results as follows; status post left hip arthroplasty, no evidence of acute hardware failure or loosening, no fracture or dislocation, expected postoperative soft tissue changes, stable right hip degenerative changes. Patient's post-op course was uncomplicated. Patient lives alone in a one story home. Patient was independent with mobility, ADLs, and driving prior to surgery. Past Medical History Allergies No Known Allergies Allergy (Verified 06/06/18 11:06) Home Medications: Ambulatory Orders Medication Instructions Recorded Amlodipine [Norvasc] 5 mg PO DAILY 02/05/14 Cholecalciferol (VIT D3) [Vitamin 2,000 unit PO BID 02/05/14 D3] Hydrochlorothiazide [Hctz] 25 mg PO DAILY 02/05/14 Omeprazole [Prilosec] 20 mg PO DAILY 02/05/14 Lisinopril [Zestril] 10 mg PO DAILY 09/27/16 Duloxetine Hcl [Cymbalta] 60 mg PO DAILY 06/06/18 Ibandronate Sodium [Boniva] 150 mg PO Q30D 06/06/18 Lamotrigine [Lamictal] 100 mg PO QHS 06/06/18 Mirtazapine 7.5 mg PO QHS 06/06/18 Rosuvastatin Calcium [Crestor] 10 mg PO QHS 06/16/18 Acetaminophen [Tylenol] 1,000 mg PO Q8 06/18/18 Aspirin 325 mg PO BIDCM 06/18/18 Oxycodone [Oxyir] 5 - 10 mg PO Q4H PRN PRN 7 Days 06/18/18 #60 tab Surgical History: hysterectomy, total hip arthroplasty, tonsillectomy, - - left breast biopsy Psychiatric History: Depression Lives: Alone Smoking Status: Never smoker - *Family History Maternal History Items: No pertinent history Paternal History Items: No pertinent history Review of Systems Constitutional: Denies: Chills, Fever, Weight Change HEENT: Denies: Head Aches, Sinus Congestion, Sinus Drainage Cardiovascular: Denies: Chest Pain, Palpitations Respiratory: Denies: Cough, Shortness of breath at rest, Sputum production Gastrointestinal: Denies: Abdominal Pain, Nausea, Vomiting Genitourinary: Denies: Dysuria Musculoskeletal: Reports: Joint stiffness - Left hip, Joint Tenderness Neurological: Denies: Numbness, Tingling, Focal weakness Psychiatric: Reports: Depression - report depression, but denies thoughts of suicidal ideations or self harm VTE Information - Inpt Only VTE Present on Admission: No VTE Mechan Device Prophylaxis: SCD's, Thigh High PHILIP Hose VTE Pharm Prophylaxis ordered?: Yes - Physical Exam General: Alert, Oriented x3, Cooperative HEENT: Atraumatic, PERRLA Oral: Moist Mucosa Neck: Supple Lungs: Clear to auscultation, Normal air movement Cardiovascular: Regular rate, Regular Rhythm Abdomen: Bowel Sounds Present, Soft, Non Tender, Obese Extremities: No clubbing, No cyanosis, Edema - mild left hip Skin: Incision - left hip, mepilex drsg intact Musculoskeletal: Tenderness - tenderness to left hip Neurological: Cranial nerves II-XII grossly intact, Deep Tendon Reflexes 2+/4 and Symmetrical, Neuro grossly intact, Motor Exam 5/5 strength throughout Psych/Mental Status: Normal Affect, Appropriate, Alert and oriented to time, place, person, mood and affect Weight: 94.914 kg Body Mass Index (BMI) 31.8 Assessment/Plan The patient is a 73 year old F with PMH HTN, GERD, hyperlipidemia, depression, neuropathy, osteoporosis admitted to [facility] on 06/18/2018 with debility secondary to Left total hip replacement, for greater of 3 hours of therapy daily with a goal of returning back home at or near her prior level of functional dependence. Dr. Campos performed a Left total hip replacement on 06/16/2018 due to osteoarthritis at [facility]. 06/06/2018 preop EKG NSR. On 06/16/2018 Left hip post-op X-Ray results as follows; status post left hip arthroplasty, no evidence of acute hardware failure or loosening, no fracture or dislocation, expected postoperative soft tissue changes, stable right hip degenerative changes. Patient's post-op course was uncomplicated. Patient lives alone in a one story home. Patient was independent with mobility, ADLs, and driving prior to surgery. Plan - PT for mobility - OT for ADLs - Analgesics as needed - Bowel Protocol - Fall precautions - s/p Left THR - d/c mepliex drsg post-op day #7, d/c jeanette on 06/27/2018, WBAT - HTN continue norvasc, hctz, zestril - Depression continue lamictal and remeron - GERD continue prilosec - Hyperlipidemia continue crestor - Osteoporosis continue boniva - Neuropathy continue cymbalta - DVT prophylaxis ASA 325 mg BID x 30 days as directed by ortho, Thigh high teds, and SCDs - Further medical management per hospitalist recommendation, hospitalist consult - Follow-up with PCP and Orthopedics
--- NOTE | 2018-06-18 15:31 | CON.PCM_ITS ---
Reason for Consult Date of Consultation: 06/18/18 Reason for Consultation: Medical management. History of Present Illness: The patient is a 73 year old F with past medical history of hypertension, hyperlipidemia, depression and GERD admitted to the inpatient rehabilitation unit after she underwent elective left total hip replacement for left hip osteoarthritis on June 16, 2018 and I am seeing this patient in consultation for medical management. At this time, patient complained of left hip pain upon ambulation but it is manageable with the current pain medication regimen. She complains of constipation which has been chronic. She denies chest pain or shortness of breath. She denies abdominal pain, nausea vomiting. She has history of hypertension which seemed to be controlled with Norvasc, lisinopril and HCTZ. She had a history of hyperlipidemia and she has been on statins. She has history of depression and she has been on Cymbalta and Lamictal. When I asked the patient why she is in Lamictal, she said she is not sure and she denies history of bipolar disorders. At this time, her vital signs are stable. Her routine blood work from yesterday reviewed and reviewed anemia with hemoglobin of 9.5 g/dL., otherwise unremarkable. She is on oxazepam for pain and full dose aspirin twice daily for DVT prophylaxis. Past Medical History Allergies No Known Allergies Allergy (Verified 06/06/18 11:06) Home Medications: Ambulatory Orders Medication Instructions Recorded Amlodipine [Norvasc] 5 mg PO DAILY 02/05/14 Cholecalciferol (VIT D3) [Vitamin 2,000 unit PO BID 02/05/14 D3] Citalopram [Celexa] 20 mg PO DAILY 02/05/14 Hydrochlorothiazide [Hctz] 25 mg PO DAILY 02/05/14 Omeprazole [Prilosec] 20 mg PO DAILY 02/05/14 buPROPion SR [Wellbutrin SR (150mg 200 mg PO QHS 05/04/14 tablets)] Lisinopril [Zestril] 10 mg PO DAILY 09/27/16 Duloxetine Hcl [Cymbalta] 60 mg PO DAILY 06/06/18 Ibandronate Sodium [Boniva] 150 mg PO Q30D 06/06/18 Lamotrigine [Lamictal] 100 mg PO QHS 06/06/18 Mirtazapine 7.5 mg PO QHS 06/06/18 Rosuvastatin Calcium [Crestor] 10 mg PO QHS 06/16/18 Acetaminophen [Tylenol] 1,000 mg PO Q8 06/18/18 Aspirin 325 mg PO BIDCM 06/18/18 Oxycodone [Oxyir] 5 - 10 mg PO Q4H PRN PRN 7 Days 06/18/18 #60 tab Surgical History: hysterectomy, total hip arthroplasty, tonsillectomy, - - left breast biopsy Psychiatric History: Depression 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 Lives: Alone Smoking Status: Never smoker Alcohol: None Drugs: None - *Family History Maternal History Items: No pertinent history Paternal History Items: No pertinent history Review of Systems Constitutional: Denies: Anorexia, Chills, Fever, Weakness Eyes: Denies: Blurred vision, Double vision, Drainage, Redness HEENT: Denies: Difficulty Hearing, Dysphasia, Ear Pain, Eye Pain, Nasal Congestion, Sore Throat Cardiovascular: Denies: Chest Pain, Chest Pressure, Chest Tightness, Heaviness, Palpitations, Syncope Respiratory: Denies: Cough, Pleuritic Pain, Shortness of Breath, Sputum production, Wheezing Gastrointestinal: Reports: Constipation. Denies: Abdominal Pain, Diarrhea, Nausea, Vomiting Genitourinary: Denies: Dysuria, Frequency, Hematuria Musculoskeletal: Reports: Joint Pain. Denies: Arm Pain, Back Pain Skin: Denies: Dryness, Rash Neurological: Denies: Balance problems, Blurred vision, Double vision, Change in Speech, Slurred speech, Focal weakness, Headaches, Incoordination Psychiatric: Reports: Depression. Denies: Anxiety Endocrine: Denies: Change in Body Habitus, Polydipsia - Physical Exam General: Alert, Oriented x3, Cooperative, No apparent distress HEENT: Atraumatic, PERRLA, EOMI, Normocephalic Oral: Moist Mucosa, No Gingival or Mucosal Lesions/ Ulcerations Neck: Supple, No JVD, Negative Carotid Bruits, Trachea Midline, Thyroid Normal Size and Texture Lungs: Clear to auscultation, Normal air movement, No rhonchi, No wheeze, No rales Cardiovascular: Regular rate, Regular Rhythm, Normal S1, Normal S2, PMI Normal Abdomen: Bowel Sounds Present, Soft, Non Tender, Non-Distended, No Hepato- splenomegaly, Obese Extremities: No clubbing, No cyanosis, No edema Skin: No rashes, No breakdown, Incision Lymphatic: No Cervical, Supraclavicular, or Inguinal Adenopathy Neurological: Cranial nerves II-XII grossly intact, Motor Exam 5/5 strength throughout Psych/Mental Status: Normal Affect, Appropriate, Alert and oriented to time, place, person, mood and affect Weight: 209 lb 4 oz Body Mass Index (BMI) 31.8 Assessment/Plan This is a 73 years old female patient admitted to the inpatient rehabilitation unit after she underwent elective left total hip replacement for left hip osteoarthritis and I am seeing this patient in consultation for medical management. #1 status post left total hip replacement: This was done electively for left hip osteoarthritis, postoperative day 2. She is on OxyContin for pain. Her vital signs are stable. Routine blood work from yesterday reviewed, reviewed, otherwise unremarkable. Plan for PT OT according to rehab team. #2 postoperative anemia: Hemoglobin was 11.8 g/dL on June 06, came down to 9.5 g/dL yesterday. It is likely because of blood loss during surgery. At this time, no evidence of active bleeding. Recommend repeat CBC tomorrow morning. #3 hypertension: Blood pressure stable, continue Norvasc, HCTZ and lisinopril. #4 hyperlipidemia: Continue statins. #5 depression: Stable, continue Cymbalta and lamotrigine. #6 GERD: Continue PPI. #7 DVT prophylaxis: Full dose aspirin twice daily. This note was generated with aaTag dictation software. It may contain incorrect words, spelling, and punctuation that were not noted in checking the note before signing. Code Visit Inpatient E&M: 50897 Init Hosp L2
[2018-06-18] MEDS: Aspirin 325 MG Tablet PO (17:19)
[2018-06-18 19:36] VITALS: BP 108/58; PULSE 78; RESP 16; TEMP 36.8; O2SAT 92
[2018-06-18 19:45] VITALS: O2SAT 92
[2018-06-18] MEDS: Mirtazapine 15 MG Tablet 7.5 MG PO (21:04)
[2018-06-18] MEDS: lamoTRIgine 100 MG Tablet 200 MG PO (21:04)
[2018-06-18] MEDS: Atorvastatin Calcium 20 MG Tablet PO (21:04)
[2018-06-18] MEDS: Senna/Docusate Sodium 1 Tablet 2 TABLET PO (21:05)
[2018-06-18] MEDS: Acetaminophen 500 MG Tablet 1000 MG PO (21:05)
--- NOTE | 2018-06-19 02:25 | NURSING ---
Reviewed and agree with RIVET HOLE MACHINE OPERATOR documentation and FIMs charting.
[2018-06-19 06:11] LABS: Hematocrit 29.4 % (37-47); Hemoglobin 9.6 g/dl (12.0-15.0); Mean Corp Hgb Conc 32.7 g/gl (32-36); Mean Corpuscular Hgb 31.5 pg (27.0-32.0); Mean Corpuscular Volume 96.4 fL (81-99); Mean Platelet Vol. 9.3 fl (6.2-12.0); Platelet Count 226 K/mm3 (150-450); RBC Distribution Width CV 14.1 % (11.6-14.6); RBC Distribution Width SD 49.3 fl (35.1-43.9); Red Blood Count 3.05 M/mm3 (4.2-5.4); White Blood Count 8.7 K/mm3 (4.4-11.0)
[2018-06-19 06:14] LABS: Scan Indicated on CBC? Y/N NO
[2018-06-19] MEDS: Acetaminophen 500 MG Tablet 1000 MG PO ×3 (06:18→21:41)
[2018-06-19 06:41] LABS: Anion Gap 5 (5-15); BUN 14 mg/dL (7-18); BUN/Creat Ratio 16.6 RATIO (10-20); Calcium,Total 8.5 mg/dL (8.5-10.1); Chloride 107 mmol/L (98-107); Creatinine, Serum 0.84 mg/dL (0.55-1.02); EST Glomerular Filtration Rate 70 mL/min (>60); Est Glom Filt Rate - Afr Amer 85 mL/min (>60); Estimated Creatinine Clearance 58.37 ml/min; Glucose 103 mg/dL (74-106); Potassium 4.1 mmol/L (3.5-5.1); Sodium Level 142 mmol/L (136-145)
[2018-06-19 07:12] VITALS: BP 130/66; PULSE 71; RESP 18; TEMP 36.4; O2SAT 97
[2018-06-19] MEDS: Pantoprazole Sodium 20 MG Tablet PO (07:57)
[2018-06-19] MEDS: amLODIPine 5 MG Tablet PO (07:57)
[2018-06-19] MEDS: DULoxetine Hcl 60 MG Capsule PO (07:57)
[2018-06-19] MEDS: Aspirin 325 MG Tablet PO ×2 (07:57→17:40)
[2018-06-19] MEDS: hydroCHLOROthiazide 25 MG Tablet PO (07:57)
[2018-06-19] MEDS: Lisinopril 10 MG Tablet PO (07:58)
[2018-06-19] MEDS: oxyCODONE 5 MG Tablet PO ×2 (10:22→21:40)
--- NOTE | 2018-06-19 12:18 | PN.NEURO_ITS ---
Subjective: Per nursing no issues overnight. Per patient tolerating therapies today and prn oxyir and polar care has been effective for left hip pain. Denies any other questions or concerns. - Physical Exam General: Alert, Oriented x3, Cooperative HEENT: Atraumatic, PERRLA Oral: Moist Mucosa Neck: Supple, No JVD Lungs: Clear to auscultation, Normal air movement Cardiovascular: Regular rate, Regular Rhythm Abdomen: Bowel Sounds Present, Soft, Non Tender Extremities: No clubbing, No cyanosis, Edema - mild nonpitting left hip Skin: Incision - left hip, mepilex drsg intact no redness or drng noted arouond drsg Musculoskeletal: Tenderness - tendernss to left hip Neurological: Cranial nerves II-XII grossly intact, Deep Tendon Reflexes 2+/4 and Symmetrical, Neuro grossly intact, Motor Exam 5/5 strength throughout Psych/Mental Status: Normal Affect, Appropriate, Alert and oriented to time, place, person, mood and affect Vital Signs Temp Pulse Resp BP Pulse Ox 97.6 F L 71 18 130/66 H 97 06/19/18 07:12 06/19/18 07:12 06/19/18 07:12 06/19/18 07:12 06/19/18 07:12 Oxygen Delivery Method Room Air Weight: 94.91 kg Body Mass Index (BMI) 31.8 Laboratory Tests Past 24 Hrs 06/19/18 06/19/18 06:00 06:00 WBC 8.7 RBC 3.05 L Hgb 9.6 L Hct 29.4 L MCV 96.4 MCH 31.5 MCHC 32.7 RDW 14.1 RDW Differential 49.3 H Plt Count 226 MPV 9.3 Sodium 142 Potassium 4.1 Chloride 107 Carbon Dioxide 30.0 Anion Gap 5 BUN 14 Creatinine 0.84 Estim Creat Clear Calc 58.37 Est GFR (MDRD) Af Amer 85 Est GFR (MDRD) Non-Af 70 BUN/Creatinine Ratio 16.6 Glucose 103 Calcium 8.5 Medical Necessity - Tobacco Use Smoking Status: Never smoker Tobacco Use: Non-smoker Assessment/Plan The patient is a 73 year old F with PMH HTN, GERD, hyperlipidemia, depression, neuropathy, osteoporosis admitted to [facility] on 06/18/2018 with debility secondary to Left total hip replacement, for greater of 3 hours of therapy daily with a goal of returning back home at or near her prior level of functional dependence. Dr. Campos performed a Left total hip replacement on 06/16/2018 due to osteoarthritis at [facility]. 06/06/2018 preop EKG NSR. On 06/16/2018 Left hip post-op X-Ray results as follows; status post left hip arthroplasty, no evidence of acute hardware failure or loosening, no fracture or dislocation, expected postoperative soft tissue changes, stable right hip degenerative changes. Patient's post-op course was uncomplicated. Patient lives alone in a one story home. Patient was independent with mobility, ADLs, and driving prior to surgery. Plan - PT for mobility - OT for ADLs - Analgesics as needed - Bowel Protocol - Fall precautions - s/p Left THR - d/c mepliex drsg post-op day #7, polar care as needed, d/c jeanette on 06/27/2018, WBAT - HTN continue norvasc, hctz, zestril - Depression continue lamictal and remeron - GERD continue prilosec - Hyperlipidemia continue crestor - Osteoporosis continue boniva - Neuropathy continue cymbalta - DVT prophylaxis ASA 325 mg BID x 30 days as directed by ortho, Thigh high teds, and SCDs - Further medical management per hospitalist recommendation, hospitalist consult - Follow-up with PCP and Orthopedics
--- NOTE | 2018-06-19 12:19 | PCM.PN.HOSP ---
Subjective: Feeling well. No hip pain. Vitals/I&O's: Vital Signs Temp Pulse Resp BP Pulse Ox 36.4 C L 71 18 130/66 H 97 06/19/18 07:12 06/19/18 07:12 06/19/18 07:12 06/19/18 07:12 06/19/18 07:12 Oxygen Delivery Method Room Air Weight: 94.91 kg Body Mass Index (BMI) 31.8 General: Alert, No apparent distress HEENT: Atraumatic, Normocephalic Oral: Moist Mucosa, No Gingival or Mucosal Lesions/ Ulcerations Neck: No Nodes, Thyroid Normal Size and Texture Lungs: Clear to auscultation, Normal air movement, No rhonchi, No wheeze Cardiovascular: Regular rate, Regular Rhythm, Normal S1, Normal S2, No murmurs Abdomen: Bowel Sounds Present, Soft, Non Tender, Non-Distended Laboratory Results 06/19/18 06:00: WBC 8.7, RBC 3.05 L, Hgb 9.6 L, Hct 29.4 L, MCV 96.4, MCH 31.5, MCHC 32.7, RDW 14.1, RDW Differential 49.3 H, Plt Count 226, MPV 9.3 06/19/18 06:00: Sodium 142, Potassium 4.1, Chloride 107, Carbon Dioxide 30.0, Anion Gap 5, BUN 14, Creatinine 0.84, Estim Creat Clear Calc 58.37, Est GFR (MDRD) Af Amer 85, Est GFR (MDRD) Non-Af 70, BUN/Creatinine Ratio 16.6, Glucose 103, Calcium 8.5 Current Medications Acetaminophen (Tylenol) 1,000 mg PO Q8 [facility] Last Admin: 06/19/18 06:18 Dose: 1,000 mg Amlodipine Besylate (Norvasc) 5 mg PO DAILY [facility] Last Admin: 06/19/18 07:57 Dose: 5 mg Aspirin (Aspirin) 325 mg PO BIDCM [facility] Stop: 07/18/18 08:01 Last Admin: 06/19/18 07:57 Dose: 325 mg Atorvastatin Calcium (Lipitor) 20 mg PO QHS [facility] Last Admin: 06/18/18 21:04 Dose: 20 mg Bisacodyl (Dulcolax) 10 mg RECTAL .PRN X 1 PRN PRN Reason: Constipation Cholecalciferol (Vitamin D) 2,000 unit PO BID [facility] Last Admin: 06/19/18 07:57 Dose: 2,000 unit Duloxetine HCl (Cymbalta) 60 mg PO DAILY [facility] Last Admin: 06/19/18 07:57 Dose: 60 mg Hydrochlorothiazide (Hctz) 25 mg PO DAILY [facility] Last Admin: 06/19/18 07:57 Dose: 25 mg Ibandronate Sodium (Boniva) 150 mg PO Q30D [facility] Lamotrigine (Lamictal) 200 mg PO QHS [facility] Last Admin: 06/18/18 21:04 Dose: 200 mg Lisinopril (Zestril) 10 mg PO DAILY [facility] Last Admin: 06/19/18 07:58 Dose: 10 mg Lorazepam (Ativan) 0.5 mg PO QHS PRN PRN PRN Reason: Insomnia Magnesium Hydroxide (Milk Of Magnesia) 30 ml PO .PRN X 1 PRN PRN Reason: Constipation Mirtazapine (Remeron) 7.5 mg PO [facility] Last Admin: 06/18/18 21:04 Dose: 7.5 mg Oxycodone HCl (Oxyir) 5 - 10 mg PO Q4H PRN PRN PRN Reason: PAIN Last Admin: 06/19/18 10:22 Dose: 5 mg Pantoprazole Sodium (Protonix) 20 mg PO DAILY [facility] Last Admin: 06/19/18 07:57 Dose: 20 mg Senna/Docusate Sodium (Senokot-S, Ariadna-Colace) 2 tablet PO BID [facility] Last Admin: 06/19/18 06:23 Dose: Not Given Medical Necessity - Tobacco Use Smoking Status: Never smoker Tobacco Use: Non-smoker Assessment/Plan 1. acute blood loss anemia Hg stable after initial drop. 2. s/p left hip replacement rehab follow up with Dr. Carballo as outpt 3. VTE proph: on ASA through 07/18 Code Visit Inpatient E&M: 25171 Subs Hosp L2
--- NOTE | 2018-06-19 12:23 | PN_ITS ---
Subjective: Feeling well. No hip pain. Vitals/I&O's: Vital Signs Temp Pulse Resp BP Pulse Ox 36.4 C L 71 18 130/66 H 97 06/19/18 07:12 06/19/18 07:12 06/19/18 07:12 06/19/18 07:12 06/19/18 07:12 Oxygen Delivery Method Room Air Weight: 94.91 kg Body Mass Index (BMI) 31.8 General: Alert, No apparent distress HEENT: Atraumatic, Normocephalic Oral: Moist Mucosa, No Gingival or Mucosal Lesions/ Ulcerations Neck: No Nodes, Thyroid Normal Size and Texture Lungs: Clear to auscultation, Normal air movement, No rhonchi, No wheeze Cardiovascular: Regular rate, Regular Rhythm, Normal S1, Normal S2, No murmurs Abdomen: Bowel Sounds Present, Soft, Non Tender, Non-Distended Laboratory Results 06/19/18 06:00: WBC 8.7, RBC 3.05 L, Hgb 9.6 L, Hct 29.4 L, MCV 96.4, MCH 31.5, MCHC 32.7, RDW 14.1, RDW Differential 49.3 H, Plt Count 226, MPV 9.3 06/19/18 06:00: Sodium 142, Potassium 4.1, Chloride 107, Carbon Dioxide 30.0, Anion Gap 5, BUN 14, Creatinine 0.84, Estim Creat Clear Calc 58.37, Est GFR (MDRD) Af Amer 85, Est GFR (MDRD) Non-Af 70, BUN/Creatinine Ratio 16.6, Glucose 103, Calcium 8.5 Current Medications Acetaminophen (Tylenol) 1,000 mg PO Q8 [facility] Last Admin: 06/19/18 06:18 Dose: 1,000 mg Amlodipine Besylate (Norvasc) 5 mg PO DAILY [facility] Last Admin: 06/19/18 07:57 Dose: 5 mg Aspirin (Aspirin) 325 mg PO BIDCM [facility] Stop: 07/18/18 08:01 Last Admin: 06/19/18 07:57 Dose: 325 mg Atorvastatin Calcium (Lipitor) 20 mg PO QHS [facility] Last Admin: 06/18/18 21:04 Dose: 20 mg Bisacodyl (Dulcolax) 10 mg RECTAL .PRN X 1 PRN PRN Reason: Constipation Cholecalciferol (Vitamin D) 2,000 unit PO BID [facility] Last Admin: 06/19/18 07:57 Dose: 2,000 unit Duloxetine HCl (Cymbalta) 60 mg PO DAILY [facility] Last Admin: 06/19/18 07:57 Dose: 60 mg Hydrochlorothiazide (Hctz) 25 mg PO DAILY [facility] Last Admin: 06/19/18 07:57 Dose: 25 mg Ibandronate Sodium (Boniva) 150 mg PO Q30D [facility] Lamotrigine (Lamictal) 200 mg PO QHS [facility] Last Admin: 06/18/18 21:04 Dose: 200 mg Lisinopril (Zestril) 10 mg PO DAILY [facility] Last Admin: 06/19/18 07:58 Dose: 10 mg Lorazepam (Ativan) 0.5 mg PO QHS PRN PRN PRN Reason: Insomnia Magnesium Hydroxide (Milk Of Magnesia) 30 ml PO .PRN X 1 PRN PRN Reason: Constipation Mirtazapine (Remeron) 7.5 mg PO [facility] Last Admin: 06/18/18 21:04 Dose: 7.5 mg Oxycodone HCl (Oxyir) 5 - 10 mg PO Q4H PRN PRN PRN Reason: PAIN Last Admin: 06/19/18 10:22 Dose: 5 mg Pantoprazole Sodium (Protonix) 20 mg PO DAILY [facility] Last Admin: 06/19/18 07:57 Dose: 20 mg Senna/Docusate Sodium (Senokot-S, Ariadna-Colace) 2 tablet PO BID [facility] Last Admin: 06/19/18 06:23 Dose: Not Given Medical Necessity - Tobacco Use Smoking Status: Never smoker Tobacco Use: Non-smoker Assessment/Plan 1. acute blood loss anemia * Hg stable after initial drop. 2. s/p left hip replacement * rehab * follow up with Dr. Carballo as outpt 3. VTE proph: on ASA through 07/18 Code Visit Inpatient E&M: 38699 Subs Hosp L2
[2018-06-19 19:55] VITALS: BP 136/87; PULSE 78; RESP 16; TEMP 36.9; O2SAT 92
[2018-06-19] MEDS: LORazepam 0.5 MG Tablet PO (21:40)
[2018-06-19] MEDS: Mirtazapine 15 MG Tablet 7.5 MG PO (21:41)
[2018-06-19] MEDS: Atorvastatin Calcium 20 MG Tablet PO (21:43)
[2018-06-19] MEDS: lamoTRIgine 100 MG Tablet 200 MG PO (21:43)
[2018-06-20] MEDS: Acetaminophen 500 MG Tablet 1000 MG PO ×3 (05:47→21:30)
[2018-06-20 07:00] VITALS: BP 116/71; PULSE 69; RESP 24; TEMP 36.4; O2SAT 95
[2018-06-20] MEDS: Lisinopril 10 MG Tablet PO (11:28)
[2018-06-20] MEDS: amLODIPine 5 MG Tablet PO (11:29)
[2018-06-20] MEDS: Pantoprazole Sodium 20 MG Tablet PO (11:29)
[2018-06-20] MEDS: DULoxetine Hcl 60 MG Capsule PO (11:29)
[2018-06-20] MEDS: Aspirin 325 MG Tablet PO ×2 (11:29→17:22)
[2018-06-20] MEDS: hydroCHLOROthiazide 25 MG Tablet PO (11:29)
--- NOTE | 2018-06-20 12:33 | PCM.PN.NEU ---
Subjective: Per nursing no issues overnight. Per patient left hip pain is well controlled with routine tylenol and prn oxyir. Patient is able to tolerate therapies without difficulty. pateint denies any further questions or concerns. - Physical Exam General: Alert, Oriented x3, Cooperative HEENT: Atraumatic, PERRLA Oral: Moist Mucosa Neck: Supple, No JVD Lungs: Clear to auscultation, Normal air movement Cardiovascular: Regular rate, Regular Rhythm Abdomen: Bowel Sounds Present, Soft, Non Tender Extremities: No clubbing, No cyanosis, Edema - mild- left hip Skin: Incision - left hip, mepilex drsg intact no redness or drng noted arouond drsg Neurological: Cranial nerves II-XII grossly intact, Deep Tendon Reflexes 2+/4 and Symmetrical, Motor Exam 5/5 strength throughout Psych/Mental Status: Normal Affect, Appropriate, Alert and oriented to time, place, person, mood and affect Vital Signs Temp Pulse Resp BP Pulse Ox 97.5 F L 69 24 H 116/71 95 06/20/18 07:00 06/20/18 07:00 06/20/18 07:00 06/20/18 07:00 06/20/18 07:00 Oxygen Delivery Method Room Air Weight: 94.91 kg Body Mass Index (BMI) 31.8 Intake and Output for Last 24 Hours 06/18/18 06/19/18 06/20/18 23:59 23:59 23:59 Intake Total 720 / 720 Output Total 350 / 350 Balance -350 / -350 720 / 720 Medical Necessity - Tobacco Use Smoking Status: Never smoker Tobacco Use: Non-smoker Assessment/Plan The patient is a 73 year old F with PMH HTN, GERD, hyperlipidemia, depression, neuropathy, osteoporosis admitted to [facility] on 06/18/2018 with debility secondary to Left total hip replacement, for greater of 3 hours of therapy daily with a goal of returning back home at or near her prior level of functional dependence. Dr. Campos performed a Left total hip replacement on 06/16/2018 due to osteoarthritis at [facility]. 06/06/2018 preop EKG NSR. On 06/16/2018 Left hip post-op X-Ray results as follows; status post left hip arthroplasty, no evidence of acute hardware failure or loosening, no fracture or dislocation, expected postoperative soft tissue changes, stable right hip degenerative changes. Patient's post-op course was uncomplicated. Patient lives alone in a one story home. Patient was independent with mobility, ADLs, and driving prior to surgery. Plan - PT for mobility - OT for ADLs - Analgesics as needed - Bowel Protocol - Fall precautions - s/p Left THR - d/c mepliex drsg post-op day #7, polar care as needed, d/c jeanette on 06/27/2018, WBAT - HTN continue norvasc, hctz, zestril - Depression continue lamictal and remeron - GERD continue prilosec - Hyperlipidemia continue crestor - Osteoporosis continue boniva - Neuropathy continue cymbalta - DVT prophylaxis ASA 325 mg BID x 30 days as directed by ortho, Thigh high teds, and SCDs - Further medical management per hospitalist recommendation, hospitalist consult - Follow-up with PCP and Orthopedics
[2018-06-20 21:19] VITALS: BP 124/68; PULSE 74; RESP 16; TEMP 36.5; O2SAT 98
[2018-06-20] MEDS: LORazepam 0.5 MG Tablet PO (21:29)
[2018-06-20] MEDS: oxyCODONE 5 MG Tablet PO (21:29)
[2018-06-20] MEDS: Mirtazapine 15 MG Tablet 7.5 MG PO (21:30)
[2018-06-20] MEDS: Atorvastatin Calcium 20 MG Tablet PO (21:32)
[2018-06-20] MEDS: lamoTRIgine 100 MG Tablet 200 MG PO (21:32)
[2018-06-21] MEDS: Acetaminophen 500 MG Tablet 1000 MG PO ×3 (06:28→20:18)
[2018-06-21 07:00] VITALS: BP 125/63; PULSE 72; RESP 17; TEMP 36.8; O2SAT 92
[2018-06-21] MEDS: oxyCODONE 5 MG Tablet PO ×2 (08:10→20:18)
[2018-06-21] MEDS: Aspirin 325 MG Tablet PO ×2 (08:11→17:13)
[2018-06-21] MEDS: Lisinopril 10 MG Tablet PO (08:11)
[2018-06-21] MEDS: amLODIPine 5 MG Tablet PO (08:11)
[2018-06-21] MEDS: hydroCHLOROthiazide 25 MG Tablet PO (08:11)
[2018-06-21] MEDS: DULoxetine Hcl 60 MG Capsule PO (08:11)
[2018-06-21] MEDS: Pantoprazole Sodium 20 MG Tablet PO (08:11)
--- NOTE | 2018-06-21 11:12 | PCM.PN.HOSP ---
Subjective: Patient seen and examined. Has no complaints. Review of systems otherwise negative. Vitals/I&O's: Vital Signs Temp Pulse Resp BP Pulse Ox 98.2 F 72 17 125/63 H 92 06/21/18 07:00 06/21/18 07:00 06/21/18 07:00 06/21/18 07:00 06/21/18 07:00 Oxygen Delivery Method Room Air Weight: 209 lb 3.852 oz Body Mass Index (BMI) 31.8 Intake and Output for Last 24 Hours 06/19/18 06/20/18 06/21/18 23:59 23:59 23:59 Intake Total 1070 / 1070 360 / 360 Output Total 350 / 350 Balance -350 / -350 1070 / 1070 360 / 360 General: Alert, Oriented x3, Cooperative, No apparent distress HEENT: Atraumatic, PERRLA, EOMI, Normocephalic Oral: Moist Mucosa Neck: Supple, No JVD, Negative Carotid Bruits Lungs: Clear to auscultation, Normal air movement, No rhonchi, No wheeze, No rales Cardiovascular: Regular rate, Regular Rhythm, Normal S1, Normal S2, No murmurs Abdomen: Bowel Sounds Present, Soft, Non Tender, Non-Distended, No Hepato-splenomegaly Extremities: No clubbing, No cyanosis, No edema, Capillary Refill Less than 3 Seconds Skin: No rashes, No breakdown Musculoskeletal: No Tenderness to Palpation of Joints or Extremities Lymphatic: No Cervical, Supraclavicular, or Inguinal Adenopathy Neurological: Cranial nerves II-XII grossly intact, Neuro grossly intact, Motor Exam 5/5 strength throughout Psych/Mental Status: Normal Affect, Appropriate, Alert and oriented to time, place, person, mood and affect Current Medications Acetaminophen (Tylenol) 1,000 mg PO Q8 [facility] Last Admin: 06/21/18 06:28 Dose: 1,000 mg Amlodipine Besylate (Norvasc) 5 mg PO DAILY [facility] Last Admin: 06/21/18 08:11 Dose: [facility] Stop: 07/18/18 08:01 Last Admin: 06/21/18 08:11 Dose: 325 mg Atorvastatin Calcium (Lipitor) 20 mg PO QHS [facility] Last Admin: 06/20/18 21:32 Dose: 20 mg Bisacodyl (Dulcolax) 10 mg RECTAL .PRN X 1 PRN PRN Reason: Constipation Cholecalciferol (Vitamin D) 2,000 unit PO BID [facility] Last Admin: 06/21/18 08:11 Dose: 2,000 unit Duloxetine HCl (Cymbalta) 60 mg PO DAILY [facility] Last Admin: 06/21/18 08:11 Dose: 60 mg Hydrochlorothiazide (Hctz) 25 mg PO DAILY [facility] Last Admin: 06/21/18 08:11 Dose: 25 mg Lamotrigine (Lamictal) 200 mg PO QHS [facility] Last Admin: 06/20/18 21:32 Dose: 200 mg Lisinopril (Zestril) 10 mg PO DAILY [facility] Last Admin: 06/21/18 08:11 Dose: 10 mg Lorazepam (Ativan) 0.5 mg PO QHS PRN PRN PRN Reason: Insomnia Last Admin: 06/20/18 21:29 Dose: 0.5 mg Magnesium Hydroxide (Milk Of Magnesia) 30 ml PO .PRN X 1 PRN PRN Reason: Constipation Mirtazapine (Remeron) 7.5 mg PO HS [facility] Last Admin: 06/20/18 21:30 Dose: 7.5 mg Oxycodone HCl (Oxyir) 5 - 10 mg PO Q4H PRN PRN PRN Reason: PAIN Last Admin: 06/21/18 08:10 Dose: 5 mg Pantoprazole Sodium (Protonix) 20 mg PO DAILY [facility] Last Admin: 06/21/18 08:11 Dose: 20 mg Senna/Docusate Sodium (Senokot-S, Ariadna-Colace) 2 tablet PO BID [facility] Last Admin: 06/21/18 08:00 Dose: Not Given Medical Necessity - Tobacco Use Smoking Status: Never smoker Tobacco Use: Non-smoker Assessment/Plan 1. Acute blood loss anemia due to surgery 1. acute blood loss anemia Hg stable after initial drop. has remained stable. will monitor 2. Left hip osteoarthritis s/p left hip replacement PT/OT on board to follow up with orthopedics on outpaitent basis. 3. Hypertension: On amlodipine, lisinopril and hydrochlorothiazide 4. Hyperlipidemia: On statin 5. Depression: On Cymbalta and Lamictal DVT prophylaxis: on aspirin 81mg bid per orthopedic surgery till 07/18/2018 Code Visit Inpatient E&M: [id number] Subs Hosp L2
[2018-06-21 20:06] VITALS: BP 103/56; PULSE 74; RESP 16; TEMP 36.6; O2SAT 92
[2018-06-21] MEDS: lamoTRIgine 100 MG Tablet 200 MG PO (20:16)
[2018-06-21] MEDS: Mirtazapine 15 MG Tablet 7.5 MG PO (20:17)
[2018-06-21] MEDS: LORazepam 0.5 MG Tablet PO (20:19)
[2018-06-21] MEDS: Atorvastatin Calcium 20 MG Tablet PO (20:20)
[2018-06-22] MEDS: Acetaminophen 500 MG Tablet 1000 MG PO ×3 (06:55→21:22)
[2018-06-22 07:00] VITALS: BP 131/74; PULSE 78; RESP 17; TEMP 36.8; O2SAT 92
[2018-06-22] MEDS: amLODIPine 5 MG Tablet PO (07:47)
[2018-06-22] MEDS: hydroCHLOROthiazide 25 MG Tablet PO (07:47)
[2018-06-22] MEDS: DULoxetine Hcl 60 MG Capsule PO (07:47)
[2018-06-22] MEDS: Pantoprazole Sodium 20 MG Tablet PO (07:47)
[2018-06-22] MEDS: Senna/Docusate Sodium 1 Tablet 2 TABLET PO ×2 (07:48→21:27)
[2018-06-22] MEDS: Lisinopril 10 MG Tablet PO (07:48)
[2018-06-22] MEDS: Aspirin 325 MG Tablet PO ×2 (07:48→17:20)
[2018-06-22] MEDS: oxyCODONE 5 MG Tablet PO ×3 (07:49→21:22)
--- NOTE | 2018-06-22 13:06 | PCM.RU.PYE ---
Admission Information Status Changes from Prescreening?: No changes Identified Actual Problem List:: Pain, ALteration in Cmfrt, Mobility Impaired, Self Care Deficit, BP, Hypertension, Ineffect.D/C Plan r/t Psy Potential Problem List:: DVT, Bleeding, Infection, UTI, Aspiration, Falls, Skin Integrity, Depression Risk of Complications DVT: LMWH, PHILIP Hose, Sequential Compression Device Bleeding: Monitor Lab Values, Nursing to Teach Precautions for anti-coagulation therapy., Wound, if applicable, to be assessed every shift., Stroke patients assessed for lethargy or change in status. Infection: Clinical Staff to Monitor for S/S of infection:, S/S of infection include fever, redness, warmth, etc. Urinary Tract Infection: Monitor for frequency, burning, discomfort, or incontinence., Nursing will obtain urine sample for urinalysis and C&S when ordered. Aspiration: Clinical staff will monitor for coughing, drooling, congestion., Speech will evaluate swallowing and dsyphasia., Nursing will monitor patient swallowing during meals. Falls: Patient will be evaluated for Fall Precautions, Patient will be placed on Fall Precautions as indicated per protocol. Skin Breakdown: Nursing will assess skin daily using assessment tool., Nursing will place on Skin Breakdown Precautions as indicated. Pain: Clinical staff will assess patient's pain level per protocol., Medications will be given, if needed, and the pain level reassessed., Other methods: Massage, distraction, decrease stimulus, etc. used PRN. Plan of Care Patient requires physician specializing in physical medicine and rehab oversight to provide close medical supervision of rehab issues including: Pain Management, Sleep Problems, Bowel and Bladder, Medical and co-morbidity Management, DVT prophylaxis, Rehabilitation Leadership, Coordination of treatment team Patient needs Physical Therapy: For a minimum of 1 hour, At least 5 out of 7 days Patient needs Physical Therapy to improve:: Mobility, Mobility, Mobility, Strengthening, Transfers, Stretching, ROM, Endurance, Stairs, Gait, Balance Patient needs Occupational Therapy: For a minimum of 1 hour, At least 5 out of 7 days Patient needs Occupational Therapy to improve ADL's incl.: Eating, Grooming, Bathing, Dressing, Toileting, Toilet transfers, Community Reintegration, Higher functioning activities, Household tasks, Adaptive Equipment, Splinting, Other activities as determined Patient requires 24/ Rehabilitation Nursing for: Pain Issues, Identifying and preventing risk factors, Monitoring and reporting current medical conditions, Assisting with ambulation, transfer, and all ADL's, Teaching patients about disease process and medications, Family teaching, Providing safe environment, Bowel and Bladder Issues, Skin integrity, Medication Management Patient needs Refinery Operator Helper/ Case Management for: Discharge Planning, Arranging Home Equipment or Services, Family Interventions Patient needs Dietary and Nutrition Services for: Adequate Nutrition, Nutritional Supplements, Nutritional Education Goals Patient will remain: free from falls, or injury at time of discharge. Patient will perform bed mobility at: MOD I level of assist. Patient will complete transfers from bed to chair at: MOD I level of assist. Patient will ambulate: 100 feet, with MOD I assist, with LRD Patient will complete upper body dressing at: MOD I level of assist. Patient will complete lower body dressing at: MOD I level of assist. Patient will complete toileting at: MOD I level of assist. Patient will perform bathing at: MOD I level of assist. Patient will complete grooming at: MOD I level of assist. Patient will complete home management skills at: MOD I level of assist. Patient will achieve: 12 stairs, at MOD I assist Patient will have pain level of: of 3 or less Patient's skin will: remain intact, free from infection. Patient will receive: adequate nutrition. Discharge Planning Pt Prognosis for Sig. Practical Improv. w/in Reasonable Time: Good Anticipated D/C Destination: Home with Outpt Therapy Was Preadmission Assessment Accurate?: Yes
--- NOTE | 2018-06-22 15:24 | NURSING ---
up and ambulated around halls with walker and standby assist
[2018-06-22 20:40] VITALS: BP 109/63; PULSE 78; RESP 18; TEMP 36.5; O2SAT 93
[2018-06-22] MEDS: Atorvastatin Calcium 20 MG Tablet PO (21:22)
[2018-06-22] MEDS: LORazepam 0.5 MG Tablet PO (21:22)
[2018-06-22] MEDS: lamoTRIgine 100 MG Tablet 200 MG PO ×2 (21:24)
[2018-06-22] MEDS: Mirtazapine 15 MG Tablet 7.5 MG PO (21:24)
[2018-06-23] MEDS: Acetaminophen 500 MG Tablet 1000 MG PO ×3 (05:30→21:28)
[2018-06-23 07:19] VITALS: BP 138/66; PULSE 86; RESP 16; TEMP 36.7; O2SAT 93
[2018-06-23] MEDS: Lisinopril 10 MG Tablet PO (08:08)
[2018-06-23] MEDS: DULoxetine Hcl 60 MG Capsule PO (08:08)
[2018-06-23] MEDS: amLODIPine 5 MG Tablet PO (08:08)
[2018-06-23] MEDS: Pantoprazole Sodium 20 MG Tablet PO (08:08)
[2018-06-23] MEDS: oxyCODONE 5 MG Tablet PO ×2 (08:08→15:32)
[2018-06-23] MEDS: hydroCHLOROthiazide 25 MG Tablet PO (08:09)
[2018-06-23] MEDS: Aspirin 325 MG Tablet PO ×2 (08:10→17:01)
--- NOTE | 2018-06-23 11:18 | PCM.PN.NEU ---
Subjective: Per nursing no issues overnight. Team meeting held this am. Patient is tolerating therapies without difficulty and plan is to discharge home on Saturday06/27/2018 with outpatient PT/OT. Patient denies any further questions or concerns. - Physical Exam General: Alert, Oriented x3, Cooperative HEENT: Atraumatic, PERRLA Oral: Moist Mucosa Neck: Supple, No JVD Lungs: Clear to auscultation, Normal air movement Cardiovascular: Regular rate, Regular Rhythm Abdomen: Bowel Sounds Present, Soft, Non Tender Extremities: No clubbing, No cyanosis, Edema - non-pitting to left hip Skin: Incision - mepilex drsg intact, no redness or active drng noted Musculoskeletal: No Tenderness to Palpation of Joints or Extremities Neurological: Cranial nerves II-XII grossly intact, Deep Tendon Reflexes 2+/4 and Symmetrical, Neuro grossly intact, Motor Exam 5/5 strength throughout Psych/Mental Status: Normal Affect, Appropriate, Alert and oriented to time, place, person, mood and affect Vital Signs Temp Pulse Resp BP Pulse Ox 98.1 F 86 16 138/66 H 93 06/23/18 07:19 06/23/18 07:19 06/23/18 07:19 06/23/18 07:19 06/23/18 07:19 Oxygen Delivery Method Room Air Weight: 94.91 kg Body Mass Index (BMI) 31.8 Intake and Output for Last 24 Hours 06/21/18 06/22/18 06/23/18 23:59 23:59 23:59 Intake Total 720 / 720 720 / 720 Balance 720 / 720 720 / 720 Medical Necessity - Tobacco Use Smoking Status: Never smoker Tobacco Use: Non-smoker Assessment/Plan The patient is a 73 year old F with PMH HTN, GERD, hyperlipidemia, depression, neuropathy, osteoporosis admitted to [facility] on 06/18/2018 with debility secondary to Left total hip replacement, for greater of 3 hours of therapy daily with a goal of returning back home at or near her prior level of functional dependence. Dr. Campos performed a Left total hip replacement on 06/16/2018 due to osteoarthritis at [facility]. 06/06/2018 preop EKG NSR. On 06/16/2018 Left hip post-op X-Ray results as follows; status post left hip arthroplasty, no evidence of acute hardware failure or loosening, no fracture or dislocation, expected postoperative soft tissue changes, stable right hip degenerative changes. Patient's post-op course was uncomplicated. Patient lives alone in a one story home. Patient was independent with mobility, ADLs, and driving prior to surgery. Plan - PT for mobility - OT for ADLs - Analgesics as needed - Bowel Protocol - Fall precautions - s/p Left THR - d/c mepilix drsg on post-day #7, polar care as needed, d/c jeanette on 06/27/2018, WBAT - HTN continue norvasc, hctz, zestril - Depression continue lamictal and remeron - GERD continue prilosec - Hyperlipidemia continue crestor - Osteoporosis continue boniva - Neuropathy continue cymbalta - DVT prophylaxis ASA 325 mg BID x 30 days as directed by ortho, Thigh high teds, and SCDs - Further medical management per hospitalist recommendation, hospitalist consult - Follow-up with PCP and Orthopedics, discharge home on Saturday06/27/2018 with outpatient PT/OT
--- NOTE | 2018-06-23 13:10 | CASEMGMT ---
Team meeting held with pt present. PT is receiving PT/OT and progressing with therapy. Pt lives at home alone and plans to return home at time of d/c. D/C date has been set for 06/27/18 with recommendations for outpt PT. SW will continue to follow for d/c planning. WINIFRED Hurtado
--- NOTE | 2018-06-23 13:31 | PN_ITS ---
Subjective: Patient seen and examined. She has no complaints. Review of systems otherwise negative. Vitals/I&O's: Vital Signs Temp Pulse Resp BP Pulse Ox 98.1 F 86 16 138/66 H 93 06/23/18 07:19 06/23/18 07:19 06/23/18 07:19 06/23/18 07:19 06/23/18 07:19 Oxygen Delivery Method Room Air Weight: 209 lb 3.852 oz Body Mass Index (BMI) 31.8 Intake and Output for Last 24 Hours 06/21/18 06/22/18 06/23/18 23:59 23:59 23:59 Intake Total 720 / 720 720 / 720 Balance 720 / 720 720 / 720 General: Alert, Oriented x3, Cooperative, No apparent distress HEENT: Atraumatic, PERRLA, EOMI, Normocephalic Oral: Moist Mucosa Neck: Supple, No JVD, Negative Carotid Bruits Lungs: Clear to auscultation, Normal air movement, No rhonchi, No wheeze, No rales Cardiovascular: Regular rate, Regular Rhythm, Normal S1, Normal S2, No murmurs Abdomen: Bowel Sounds Present, Soft, Non Tender, Non-Distended, No Hepato- splenomegaly Extremities: No clubbing, No cyanosis, No edema, Capillary Refill Less than 3 Seconds Skin: No rashes, No breakdown Musculoskeletal: No Tenderness to Palpation of Joints or Extremities Lymphatic: No Cervical, Supraclavicular, or Inguinal Adenopathy Neurological: Cranial nerves II-XII grossly intact, Neuro grossly intact, Motor Exam 5/5 strength throughout Psych/Mental Status: Normal Affect, Appropriate, Alert and oriented to time, place, person, mood and affect Current Medications Acetaminophen (Tylenol) 1,000 mg PO Q8 [facility] Last Admin: 06/23/18 05:30 Dose: 1,000 mg Amlodipine Besylate (Norvasc) 5 mg PO DAILY [facility] Last Admin: 06/23/18 08:08 Dose: 5 mg Aspirin (Aspirin) 325 mg PO BIDCM [facility] Stop: 07/18/18 08:01 Last Admin: 06/23/18 08:10 Dose: 325 mg Atorvastatin Calcium (Lipitor) 20 mg PO QHS [facility] Last Admin: 06/22/18 21:22 Dose: 20 mg Bisacodyl (Dulcolax) 10 mg RECTAL .PRN X 1 PRN PRN Reason: Constipation Cholecalciferol (Vitamin D) 2,000 unit PO BID [facility] Last Admin: 06/23/18 08:08 Dose: 2,000 unit Duloxetine HCl (Cymbalta) 60 mg PO DAILY [facility] Last Admin: 06/23/18 08:08 Dose: 60 mg Hydrochlorothiazide (Hctz) 25 mg PO DAILY [facility] Last Admin: 06/23/18 08:09 Dose: 25 mg Ibandronate Sodium (Boniva) 150 mg PO Q30D [facility] Last Admin: 06/23/18 05:37 Dose: 150 mg Lamotrigine (Lamictal) 200 mg PO QHS [facility] Last Admin: 06/22/18 21:24 Dose: 200 mg Lisinopril (Zestril) 10 mg PO DAILY [facility] Last Admin: 06/23/18 08:08 Dose: 10 mg Lorazepam (Ativan) 0.5 mg PO QHS PRN PRN PRN Reason: Insomnia Last Admin: 06/22/18 21:22 Dose: 0.5 mg Magnesium Hydroxide (Milk Of Magnesia) 30 ml PO .PRN X 1 PRN PRN Reason: Constipation Mirtazapine (Remeron) 7.5 mg PO HS [facility] Last Admin: 06/22/18 21:24 Dose: 7.5 mg Oxycodone HCl (Oxyir) 5 - 10 mg PO Q4H PRN PRN PRN Reason: PAIN Last Admin: 06/23/18 08:08 Dose: 5 mg Pantoprazole Sodium (Protonix) 20 mg PO DAILY [facility] Last Admin: 06/23/18 08:08 Dose: 20 mg Senna/Docusate Sodium (Senokot-S, Ariadna-Colace) 2 tablet PO BID [facility] Last Admin: 06/23/18 08:09 Dose: Not Given Medical Necessity - Tobacco Use Smoking Status: Never smoker Tobacco Use: Non-smoker Assessment/Plan 1. Acute blood loss anemia due to surgery 1. acute blood loss anemia * Hg stable after initial drop. * has remained stable. will monitor * 2. Left hip osteoarthritis s/p left hip replacement * PT/OT on board * to follow up with orthopedics on outpaitent basis. * 3. Hypertension: On amlodipine, lisinopril and hydrochlorothiazide 4. Hyperlipidemia: On statin 5. Depression: On Cymbalta and Lamictal DVT prophylaxis: on aspirin 81mg bid per orthopedic surgery till 07/18/2018 Code Visit Inpatient E&M: 33299 Subs Hosp L2
[2018-06-23] MEDS: Atorvastatin Calcium 20 MG Tablet PO (21:26)
[2018-06-23] MEDS: Mirtazapine 15 MG Tablet 7.5 MG PO (21:26)
[2018-06-23] MEDS: Senna/Docusate Sodium 1 Tablet 2 TABLET PO (21:27)
[2018-06-23 22:00] VITALS: BP 131/58; PULSE 76; RESP 18; TEMP 36.6; O2SAT 92
[2018-06-24] MEDS: Acetaminophen 500 MG Tablet 1000 MG PO ×3 (05:59→21:05)
[2018-06-24 07:09] VITALS: BP 114/61; PULSE 72; RESP 16; TEMP 36.6; O2SAT 94
[2018-06-24] MEDS: Pantoprazole Sodium 20 MG Tablet PO (07:58)
[2018-06-24] MEDS: Senna/Docusate Sodium 1 Tablet 2 TABLET PO (07:58)
[2018-06-24] MEDS: Lisinopril 10 MG Tablet PO (07:58)
[2018-06-24] MEDS: amLODIPine 5 MG Tablet PO (07:58)
[2018-06-24] MEDS: DULoxetine Hcl 60 MG Capsule PO (07:59)
[2018-06-24] MEDS: Aspirin 325 MG Tablet PO ×2 (07:59→17:15)
[2018-06-24] MEDS: hydroCHLOROthiazide 25 MG Tablet PO (07:59)
[2018-06-24] MEDS: oxyCODONE 5 MG Tablet PO ×3 (08:03→20:40)
--- NOTE | 2018-06-24 11:54 | PN.NEURO_ITS ---
Subjective: Per nursing no issues overnight. Per patient she is tolerating therapies well and is ready to go home Saturday06/27/2018. Patient states her pain is well controlled. Denies any further questions or problems - Physical Exam General: Alert, Oriented x3, Cooperative HEENT: Atraumatic, PERRLA Oral: Moist Mucosa Neck: Supple, No JVD Lungs: Clear to auscultation, Normal air movement Cardiovascular: Regular rate, Regular Rhythm Abdomen: Bowel Sounds Present, Soft, Non Tender Extremities: No clubbing, No cyanosis, No edema Skin: Incision - jeanette intact to left hip, without redness or active drng Musculoskeletal: No Tenderness to Palpation of Joints or Extremities Neurological: Cranial nerves II-XII grossly intact, Deep Tendon Reflexes 2+/4 and Symmetrical, Neuro grossly intact, Motor Exam 5/5 strength throughout Psych/Mental Status: Normal Affect, Appropriate, Alert and oriented to time, place, person, mood and affect Vital Signs Temp Pulse Resp BP Pulse Ox 98 F 72 16 114/61 94 06/24/18 07:09 06/24/18 07:09 06/24/18 07:09 06/24/18 07:09 06/24/18 07:09 Oxygen Delivery Method Room Air Weight: 94.91 kg Body Mass Index (BMI) 31.8 Intake and Output for Last 24 Hours 06/22/18 06/23/18 06/24/18 23:59 23:59 23:59 Intake Total 720 / 720 Output Total 250 / 250 Balance 720 / 720 -250 / -250 Medical Necessity - Tobacco Use Smoking Status: Never smoker Tobacco Use: Non-smoker Assessment/Plan The patient is a 73 year old F with PMH HTN, GERD, hyperlipidemia, depression, neuropathy, osteoporosis admitted to [facility] on 06/18/2018 with debility secondary to Left total hip replacement, for greater of 3 hours of therapy daily with a goal of returning back home at or near her prior level of functional dependence. Dr. Campos performed a Left total hip replacement on 06/16/2018 due to osteoarthritis at [facility]. 06/06/2018 preop EKG NSR. On 06/16/2018 Left hip post-op X-Ray results as follows; status post left hip arthroplasty, no evidence of acute hardware failure or loosening, no fracture or dislocation, expected postoperative soft tissue changes, stable right hip degenerative changes. Patient's post-op course was uncomplicated. Patient lives alone in a one story home. Patient was independent with mobility, ADLs, and driving prior to surgery. Plan - PT for mobility - OT for ADLs - Analgesics as needed - Bowel Protocol - Fall precautions - s/p Left THR - polar care as needed, d/c jeanette on 06/27/2018, WBAT - HTN continue norvasc, hctz, zestril - Depression continue lamictal and remeron - GERD continue prilosec - Hyperlipidemia continue crestor - Osteoporosis continue boniva - Neuropathy continue cymbalta - DVT prophylaxis ASA 325 mg BID x 30 days as directed by ortho, Thigh high teds, and SCDs - Further medical management per hospitalist recommendation, hospitalist consult - Follow-up with PCP and Orthopedics, discharge home on Saturday06/27/2018 with outpatient PT/OT
--- NOTE | 2018-06-24 13:11 | CASEMGMT ---
Social Work SW met with pt today and discussed D/C. Pt plans to return home on Saturday06/27/18. Pt lives alone but states family is available to assist and transport as needed. PT has all needed DME including walker, 3 in 1 commode and shower chair. Pt would like to receive outpt PT at [facility]. Referral made to [facility] and they will contact pt to set up appointment that works with pt transportation. No other d/c needs at this time. Plan: D/C home 06/27/18 with outpt PT WINIFRED Hurtado
--- NOTE | 2018-06-24 17:50 | NURSING ---
Reviewed and agree with LPNS FIMS and charting.
[2018-06-24 19:25] VITALS: BP 121/69; PULSE 82; RESP 16; TEMP 36.6; O2SAT 92
[2018-06-24] MEDS: lamoTRIgine 100 MG Tablet 200 MG PO (20:50)
[2018-06-24] MEDS: Atorvastatin Calcium 20 MG Tablet PO (20:50)
[2018-06-24] MEDS: Mirtazapine 15 MG Tablet 7.5 MG PO (21:01)
[2018-06-24 22:00] VITALS: PULSE 82
[2018-06-25] MEDS: Acetaminophen 500 MG Tablet 1000 MG PO ×3 (05:29→20:58)
--- NOTE | 2018-06-25 06:39 | NURSING ---
Pt confided in this nurse that she felt the MAIL CLERK assistance into bed, after toileting the previous night was quick. Pt felt a twinge of pain after positioning. Pt states MAIL CLERK asked pt if she needed pain med but pt denied need. Pt stated she was afraid to say anything but this nurse informed pt that she should not be afraid to express her concerns. Pt confided that she was afraid that there would be retaliation towards her. Pt told that this nurse would speak with MAIL CLERK about concerns expressed. This nurse has not witnessed improper handling of pts by this MAIL CLERK before. In speaking with MAIL CLERK, MAIL CLERK states she informed pt she would help with the lower portion lift into bed and confirmed asking about pt need for pain med.
[2018-06-25 07:37] VITALS: BP 124/70; PULSE 72; RESP 16; TEMP 36.7; O2SAT 94
[2018-06-25] MEDS: amLODIPine 5 MG Tablet PO (08:11)
[2018-06-25] MEDS: Aspirin 325 MG Tablet PO ×2 (08:11→16:52)
[2018-06-25] MEDS: hydroCHLOROthiazide 25 MG Tablet PO (08:11)
[2018-06-25] MEDS: Lisinopril 10 MG Tablet PO (08:11)
[2018-06-25] MEDS: Senna/Docusate Sodium 1 Tablet 2 TABLET PO ×2 (08:11→20:57)
[2018-06-25] MEDS: DULoxetine Hcl 60 MG Capsule PO (08:11)
[2018-06-25] MEDS: Pantoprazole Sodium 20 MG Tablet PO (08:11)
[2018-06-25] MEDS: oxyCODONE 5 MG Tablet PO (08:16)
--- NOTE | 2018-06-25 10:26 | PCM.PN.NEU ---
Subjective: Per nursing no issues overnight. Patient is modified independent with ADLs and mobility with walker, gait steady. Patient denies calf tenderness and pain is well controlled. Patient is ready to be discharged home on 06/27/2018. - Physical Exam General: Alert, Oriented x3, Cooperative HEENT: Atraumatic, PERRLA Oral: Moist Mucosa Neck: Supple, No JVD Lungs: Clear to auscultation, Normal air movement Cardiovascular: Regular rate, Regular Rhythm Abdomen: Bowel Sounds Present, Soft, Non Tender Extremities: No clubbing, No cyanosis, No edema Skin: Incision - s/p Left THR, jeanette intact without redness or drng. Musculoskeletal: No Tenderness to Palpation of Joints or Extremities Neurological: Cranial nerves II-XII grossly intact, Deep Tendon Reflexes 2+/4 and Symmetrical, Neuro grossly intact, Motor Exam 5/5 strength throughout Psych/Mental Status: Normal Affect, Appropriate, Alert and oriented to time, place, person, mood and affect Vital Signs Temp Pulse Resp BP Pulse Ox 98.1 F 72 16 124/70 H 94 06/25/18 07:37 06/25/18 07:37 06/25/18 07:37 06/25/18 07:37 06/25/18 07:37 Oxygen Delivery Method Room Air Weight: 94.91 kg Body Mass Index (BMI) 31.8 Intake and Output for Last 24 Hours 06/23/18 06/24/18 06/25/18 23:59 23:59 23:59 Intake Total 440 / 440 480 / 480 Output Total 250 / 250 Balance -250 / -250 440 / 440 480 / 480 Medical Necessity - Tobacco Use Smoking Status: Never smoker Tobacco Use: Non-smoker Assessment/Plan The patient is a 73 year old F with PMH HTN, GERD, hyperlipidemia, depression, neuropathy, osteoporosis admitted to [facility] on 06/18/2018 with debility secondary to Left total hip replacement, for greater of 3 hours of therapy daily with a goal of returning back home at or near her prior level of functional dependence. Dr. Campos performed a Left total hip replacement on 06/16/2018 due to osteoarthritis at [facility]. 06/06/2018 preop EKG NSR. On 06/16/2018 Left hip post-op X-Ray results as follows; status post left hip arthroplasty, no evidence of acute hardware failure or loosening, no fracture or dislocation, expected postoperative soft tissue changes, stable right hip degenerative changes. Patient's post-op course was uncomplicated. Patient lives alone in a one story home. Patient was independent with mobility, ADLs, and driving prior to surgery. Plan - PT for mobility - OT for ADLs - Analgesics as needed - Bowel Protocol - Fall precautions - s/p Left THR - polar care as needed, d/c jeanette on 06/27/2018, WBAT - HTN continue norvasc, hctz, zestril - Depression continue lamictal and remeron - GERD continue prilosec - Hyperlipidemia continue crestor - Osteoporosis continue boniva - Neuropathy continue cymbalta - DVT prophylaxis ASA 325 mg BID x 30 days as directed by ortho, Thigh high teds, and SCDs - Further medical management per hospitalist recommendation, hospitalist consult - Follow-up with PCP and Orthopedics, discharge home on Saturday06/27/2018 with outpatient PT/OT
--- NOTE | 2018-06-25 10:29 | PN.NEURO_ITS ---
Subjective: Per nursing no issues overnight. Patient is modified independent with ADLs and mobility with walker, gait steady. Patient denies calf tenderness and pain is well controlled. Patient is ready to be discharged home on 06/27/2018. - Physical Exam General: Alert, Oriented x3, Cooperative HEENT: Atraumatic, PERRLA Oral: Moist Mucosa Neck: Supple, No JVD Lungs: Clear to auscultation, Normal air movement Cardiovascular: Regular rate, Regular Rhythm Abdomen: Bowel Sounds Present, Soft, Non Tender Extremities: No clubbing, No cyanosis, No edema Skin: Incision - s/p Left THR, jeanette intact without redness or drng. Musculoskeletal: No Tenderness to Palpation of Joints or Extremities Neurological: Cranial nerves II-XII grossly intact, Deep Tendon Reflexes 2+/4 and Symmetrical, Neuro grossly intact, Motor Exam 5/5 strength throughout Psych/Mental Status: Normal Affect, Appropriate, Alert and oriented to time, place, person, mood and affect Vital Signs Temp Pulse Resp BP Pulse Ox 98.1 F 72 16 124/70 H 94 06/25/18 07:37 06/25/18 07:37 06/25/18 07:37 06/25/18 07:37 06/25/18 07:37 Oxygen Delivery Method Room Air Weight: 94.91 kg Body Mass Index (BMI) 31.8 Intake and Output for Last 24 Hours 06/23/18 06/24/18 06/25/18 23:59 23:59 23:59 Intake Total 440 / 440 480 / 480 Output Total 250 / 250 Balance -250 / -250 440 / 440 480 / 480 Medical Necessity - Tobacco Use Smoking Status: Never smoker Tobacco Use: Non-smoker Assessment/Plan The patient is a 73 year old F with PMH HTN, GERD, hyperlipidemia, depression, neuropathy, osteoporosis admitted to [facility] on 06/18/2018 with debility secondary to Left total hip replacement, for greater of 3 hours of therapy daily with a goal of returning back home at or near her prior level of functional dependence. Dr. Campos performed a Left total hip replacement on 06/16/2018 due to osteoarthritis at [facility]. 06/06/2018 preop EKG NSR. On 06/16/2018 Left hip post-op X-Ray results as follows; status post left hip arthroplasty, no evidence of acute hardware failur e or loosening, no fracture or dislocation, expected postoperative soft tissue changes, stable right hip degenerative changes. Patient's post-op course was uncomplicated. Patient lives alone in a one story home. Patient was independent with mobility, ADLs, and driving prior to surgery. Plan - PT for mobility - OT for ADLs - Analgesics as needed - Bowel Protocol - Fall precautions - s/p Left THR - polar care as needed, d/c jeanette on 06/27/2018, WBAT - HTN continue norvasc, hctz, zestril - Depression continue lamictal and remeron - GERD continue prilosec - Hyperlipidemia continue crestor - Osteoporosis continue boniva - Neuropathy continue cymbalta - DVT prophylaxis ASA 325 mg BID x 30 days as directed by ortho, Thigh high teds, and SCDs - Further medical management per hospitalist recommendation, hospitalist consult - Follow-up with PCP and Orthopedics, discharge home on Saturday06/27/2018 with outpatient PT/OT
[2018-06-25 20:05] VITALS: BP 113/65; PULSE 65; RESP 18; TEMP 36.4; O2SAT 94
[2018-06-25] MEDS: Mirtazapine 15 MG Tablet 7.5 MG PO (20:57)
[2018-06-25] MEDS: lamoTRIgine 100 MG Tablet 200 MG PO (20:57)
[2018-06-25] MEDS: Atorvastatin Calcium 20 MG Tablet PO (20:57)
[2018-06-26] MEDS: oxyCODONE 5 MG Tablet PO ×3 (00:47→20:31)
--- NOTE | 2018-06-26 02:09 | NURSING ---
REVIEWED AND AGREE WITH CAP LINING MACHINE OPERATOR'S FIM AND HANDOFF CHARTING.
[2018-06-26] MEDS: Acetaminophen 500 MG Tablet 1000 MG PO ×3 (06:10→20:31)
--- NOTE | 2018-06-26 08:39 | PN.NEURO_ITS ---
Subjective: Per nursing no issues overnight. Per patient pain is well controlled and is tolerating therapies well. Denied any further questions or concerns. Patient will be discharged home on 06/27/2018. - Physical Exam General: Alert, Oriented x3, Cooperative HEENT: Atraumatic, PERRLA Oral: Moist Mucosa Neck: Supple, No JVD Lungs: Clear to auscultation, Normal air movement Cardiovascular: Regular rate, Regular Rhythm Abdomen: Bowel Sounds Present, Soft, Non Tender Extremities: No clubbing, No cyanosis, No edema Musculoskeletal: No Tenderness to Palpation of Joints or Extremities Neurological: Cranial nerves II-XII grossly intact, Deep Tendon Reflexes 2+/4 and Symmetrical, Neuro grossly intact, Motor Exam 5/5 strength throughout Psych/Mental Status: Normal Affect, Appropriate, Alert and oriented to time, place, person, mood and affect Vital Signs Temp Pulse Resp BP Pulse Ox 97.6 F L 65 18 113/65 94 06/25/18 20:05 06/25/18 20:05 06/25/18 20:05 06/25/18 20:05 06/25/18 20:05 Oxygen Delivery Method Room Air Weight: 94.892 kg Body Mass Index (BMI) 31.8 Intake and Output for Last 24 Hours 06/24/18 06/25/18 06/26/18 23:59 23:59 23:59 Intake Total 440 / 440 1050 / 1050 Balance 440 / 440 1050 / 1050 Medical Necessity - Tobacco Use Smoking Status: Never smoker Tobacco Use: Non-smoker Assessment/Plan The patient is a 73 year old F with PMH HTN, GERD, hyperlipidemia, depression, neuropathy, osteoporosis admitted to [facility] on 06/18/2018 with debility secondary to Left total hip replacement, for greater of 3 hours of therapy daily with a goal of returning back home at or near her prior level of functional dependence. Dr. Campos performed a Left total hip replacement on 06/16/2018 due to osteoarthritis at [facility]. 06/06/2018 preop EKG NSR. On 06/16/2018 Left hip post-op X-Ray results as follows; status post left hip arthroplasty, no evidence of acute hardware failure or loosening, no fracture or dislocation, expected postoperative soft tissue changes, stable right hip degenerative changes. Patient's post-op course was uncomplicated. Patient lives alone in a one story home. Patient was independent with mobility, ADLs, and driving prior to surgery. Plan - PT for mobility - OT for ADLs - Analgesics as needed - Bowel Protocol - Fall precautions - s/p Left THR - polar care as needed, d/c jeanette on 06/27/2018, WBAT - HTN continue norvasc, hctz, zestril - Depression continue lamictal and remeron - GERD continue prilosec - Hyperlipidemia continue crestor - Osteoporosis continue boniva - Neuropathy continue cymbalta - DVT prophylaxis ASA 325 mg BID x 30 days as directed by ortho, Thigh high teds, and SCDs - Further medical management per hospitalist recommendation, hospitalist consult - Follow-up with PCP and Orthopedics, discharge home on Saturday06/27/2018 with outpatient PT/OT
[2018-06-26 08:57] VITALS: BP 126/84; PULSE 81; RESP 18; TEMP 36.5; O2SAT 96
[2018-06-26] MEDS: amLODIPine 5 MG Tablet PO (09:00)
[2018-06-26] MEDS: hydroCHLOROthiazide 25 MG Tablet PO (09:00)
[2018-06-26] MEDS: Aspirin 325 MG Tablet PO ×2 (09:00→17:06)
[2018-06-26] MEDS: Senna/Docusate Sodium 1 Tablet 2 TABLET PO ×2 (09:00→20:30)
[2018-06-26] MEDS: Lisinopril 10 MG Tablet PO (09:00)
[2018-06-26] MEDS: Pantoprazole Sodium 20 MG Tablet PO (09:00)
[2018-06-26] MEDS: DULoxetine Hcl 60 MG Capsule PO (09:00)
--- NOTE | 2018-06-26 11:39 | PCM.PN.HOSP ---
Subjective: Patient seen and examined. Has no complaints. Review of systems otherwise negative. Vitals/I&O's: Vital Signs Temp Pulse Resp BP Pulse Ox 97.7 F L 81 18 126/84 H 96 06/26/18 08:57 06/26/18 08:57 06/26/18 08:57 06/26/18 08:57 06/26/18 08:57 Oxygen Delivery Method Room Air Weight: 209 lb 3.2 oz Body Mass Index (BMI) 31.8 Intake and Output for Last 24 Hours 06/24/18 06/25/18 06/26/18 23:59 23:59 23:59 Intake Total 440 / 440 1050 / 1050 360 / 360 Balance 440 / 440 1050 / 1050 360 / 360 General: Alert, Oriented x3, Cooperative, No apparent distress HEENT: Atraumatic, PERRLA, EOMI, Normocephalic Oral: Moist Mucosa Neck: Supple, No JVD, Negative Carotid Bruits Lungs: Clear to auscultation, Normal air movement, No rhonchi, No wheeze, No rales Cardiovascular: Regular rate, Regular Rhythm, Normal S1, Normal S2, No murmurs Abdomen: Bowel Sounds Present, Soft, Non Tender, Non-Distended, No Hepato-splenomegaly Extremities: No clubbing, No cyanosis, No edema, Capillary Refill Less than 3 Seconds Skin: No rashes, No breakdown Musculoskeletal: No Tenderness to Palpation of Joints or Extremities Lymphatic: No Cervical, Supraclavicular, or Inguinal Adenopathy Neurological: Cranial nerves II-XII grossly intact, Neuro grossly intact, Motor Exam 5/5 strength throughout Psych/Mental Status: Normal Affect, Appropriate, Alert and oriented to time, place, person, mood and affect Current Medications Acetaminophen (Tylenol) 1,000 mg PO Q8 [facility] Last Admin: 06/26/18 06:10 Dose: 1,000 mg Amlodipine Besylate (Norvasc) 5 mg PO DAILY [facility] Last Admin: 06/26/18 09:00 Dose: 5 [facility] Stop: 07/18/18 08:01 Last Admin: 06/26/18 09:00 Dose: 325 mg Atorvastatin Calcium (Lipitor) 20 mg PO QHS [facility] Last Admin: 06/25/18 20:57 Dose: 20 mg Bisacodyl (Dulcolax) 10 mg RECTAL .PRN X 1 PRN PRN Reason: Constipation Cholecalciferol (Vitamin D) 2,000 unit PO BID [facility] Last Admin: 06/26/18 09:00 Dose: 2,000 unit Duloxetine HCl (Cymbalta) 60 mg PO DAILY [facility] Last Admin: 06/26/18 09:00 Dose: 60 mg Hydrochlorothiazide (Hctz) 25 mg PO DAILY [facility] Last Admin: 06/26/18 09:00 Dose: 25 mg Ibandronate Sodium (Boniva) 150 mg PO Q30D [facility] Last Admin: 06/23/18 05:37 Dose: 150 mg Lamotrigine (Lamictal) 200 mg PO QHS [facility] Last Admin: 06/25/18 20:57 Dose: 200 mg Lisinopril (Zestril) 10 mg PO DAILY [facility] Last Admin: 06/26/18 09:00 Dose: 10 mg Lorazepam (Ativan) 0.5 mg PO QHS PRN PRN PRN Reason: Insomnia Last Admin: 06/22/18 21:22 Dose: 0.5 mg Magnesium Hydroxide (Milk Of Magnesia) 30 ml PO .PRN X 1 PRN PRN Reason: Constipation Mirtazapine (Remeron) 7.5 mg PO HS [facility] Last Admin: 06/25/18 20:57 Dose: 7.5 mg Oxycodone HCl (Oxyir) 5 - 10 mg PO Q4H PRN PRN PRN Reason: PAIN Last Admin: 06/26/18 06:13 Dose: 10 mg Pantoprazole Sodium (Protonix) 20 mg PO DAILY [facility] Last Admin: 06/26/18 09:00 Dose: 20 mg Senna/Docusate Sodium (Senokot-S, Ariadna-Colace) 2 tablet PO BID [facility] Last Admin: 06/26/18 09:00 Dose: 2 tablet Medical Necessity - Tobacco Use Smoking Status: Never smoker Tobacco Use: Non-smoker Assessment/Plan 1. Acute blood loss anemia due to surgery 1. acute blood loss anemia has remained stable. will monitor 2. Left hip osteoarthritis s/p left hip replacement PT/OT on board to follow up with orthopedics on outpatient basis. 3. Hypertension: On amlodipine, lisinopril and hydrochlorothiazide 4. Hyperlipidemia: On statin 5. Depression: On Cymbalta and Lamictal DVT prophylaxis: on aspirin 81mg bid per orthopedic surgery till 07/18/2018 Code Visit Inpatient E&M: 79773 Subs Hosp L2
--- NOTE | 2018-06-26 11:42 | PN_ITS ---
Subjective: Patient seen and examined. Has no complaints. Review of systems otherwise negative. Vitals/I&O's: Vital Signs Temp Pulse Resp BP Pulse Ox 97.7 F L 81 18 126/84 H 96 06/26/18 08:57 06/26/18 08:57 06/26/18 08:57 06/26/18 08:57 06/26/18 08:57 Oxygen Delivery Method Room Air Weight: 209 lb 3.2 oz Body Mass Index (BMI) 31.8 Intake and Output for Last 24 Hours 06/24/18 06/25/18 06/26/18 23:59 23:59 23:59 Intake Total 440 / 440 1050 / 1050 360 / 360 Balance 440 / 440 1050 / 1050 360 / 360 General: Alert, Oriented x3, Cooperative, No apparent distress HEENT: Atraumatic, PERRLA, EOMI, Normocephalic Oral: Moist Mucosa Neck: Supple, No JVD, Negative Carotid Bruits Lungs: Clear to auscultation, Normal air movement, No rhonchi, No wheeze, No rales Cardiovascular: Regular rate, Regular Rhythm, Normal S1, Normal S2, No murmurs Abdomen: Bowel Sounds Present, Soft, Non Tender, Non-Distended, No Hepato- splenomegaly Extremities: No clubbing, No cyanosis, No edema, Capillary Refill Less than 3 Seconds Skin: No rashes, No breakdown Musculoskeletal: No Tenderness to Palpation of Joints or Extremities Lymphatic: No Cervical, Supraclavicular, or Inguinal Adenopathy Neurological: Cranial nerves II-XII grossly intact, Neuro grossly intact, Motor Exam 5/5 strength throughout Psych/Mental Status: Normal Affect, Appropriate, Alert and oriented to time, place, person, mood and affect Current Medications Acetaminophen (Tylenol) 1,000 mg PO Q8 [facility] Last Admin: 06/26/18 06:10 Dose: 1,000 mg Amlodipine Besylate (Norvasc) 5 mg PO DAILY [facility] Last Admin: 06/26/18 09:00 Dose: 5 mg [facility] Stop: 07/18/18 08:01 Last Admin: 06/26/18 09:00 Dose: 325 mg Atorvastatin Calcium (Lipitor) 20 mg PO QHS [facility] Last Admin: 06/25/18 20:57 Dose: 20 mg Bisacodyl (Dulcolax) 10 mg RECTAL .PRN X 1 PRN PRN Reason: Constipation Cholecalciferol (Vitamin D) 2,000 unit PO BID [facility] Last Admin: 06/26/18 09:00 Dose: 2,000 unit Duloxetine HCl (Cymbalta) 60 mg PO DAILY [facility] Last Admin: 06/26/18 09:00 Dose: 60 mg Hydrochlorothiazide (Hctz) 25 mg PO DAILY [facility] Last Admin: 06/26/18 09:00 Dose: 25 mg Ibandronate Sodium (Boniva) 150 mg PO Q30D [facility] Last Admin: 06/23/18 05:37 Dose: 150 mg Lamotrigine (Lamictal) 200 mg PO QHS [facility] Last Admin: 06/25/18 20:57 Dose: 200 mg Lisinopril (Zestril) 10 mg PO DAILY [facility] Last Admin: 06/26/18 09:00 Dose: 10 mg Lorazepam (Ativan) 0.5 mg PO QHS PRN PRN PRN Reason: Insomnia Last Admin: 06/22/18 21:22 Dose: 0.5 mg Magnesium Hydroxide (Milk Of Magnesia) 30 ml PO .PRN X 1 PRN PRN Reason: Constipation Mirtazapine (Remeron) 7.5 mg PO HS [facility] Last Admin: 06/25/18 20:57 Dose: 7.5 mg Oxycodone HCl (Oxyir) 5 - 10 mg PO Q4H PRN PRN PRN Reason: PAIN Last Admin: 06/26/18 06:13 Dose: 10 mg Pantoprazole Sodium (Protonix) 20 mg PO DAILY [facility] Last Admin: 06/26/18 09:00 Dose: 20 mg Senna/Docusate Sodium (Senokot-S, Ariadna-Colace) 2 tablet PO BID [facility] Last Admin: 06/26/18 09:00 Dose: 2 tablet Medical Necessity - Tobacco Use Smoking Status: Never smoker Tobacco Use: Non-smoker Assessment/Plan 1. Acute blood loss anemia due to surgery 1. acute blood loss anemia * has remained stable. will monitor * 2. Left hip osteoarthritis s/p left hip replacement * PT/OT on board * to follow up with orthopedics on outpatient basis. * 3. Hypertension: On amlodipine, lisinopril and hydrochlorothiazide 4. Hyperlipidemia: On statin 5. Depression: On Cymbalta and Lamictal DVT prophylaxis: on aspirin 81mg bid per orthopedic surgery till 07/18/2018 Code Visit Inpatient E&M: 09274 Subs Hosp L2
--- NOTE | 2018-06-26 14:32 | DCINST_ITS ---
- Discharge Diagnoses Reason(s) for Visit for Discharge Instructions: Debility secondary to Left THR You will use the following diet at home:: Regular Your food should be the consistency of: Regular Your liquids should be the consistency of: Regular/Thin Discharge Activity: Return to Normal Activity, No Restrictions, May Not Drive, May Shower, Use Walker Weight Bearing Status: Weight bearing as tolerated Call your doctor if your incision/area has: Continuous Slow Oozing, Sudden Increased Bleeding, Increased Pain/ Swelling, Increased Redness, Foul Smelling Discharge, Swelling at the incision site Call your doctor if you observe: Fever of 101 or Higher, Coldness, Increased Pain, Numbness or Tingling, Change in Color, Inability to urinate, Inability to have a bowel movement, Shortness of breath, Dizziness, Fainting spells, Swelling in the ankles, Chest pain, Prolonged hiccoughing, Increased palpitations (irregular heartbeat), Calf discomfort, Uncontrolled pain Cleanse incision/area with: Soap & Water Additional Instructions: Last dose of Aspirin 325 mg is on 07/18/2018 in am Allergies/Adverse Reactions: Allergies No Known Allergies Allergy (Verified 06/06/18 11:06) Medications to take at Discharge Omeprazole [Prilosec] 20 mg PO DAILY 02/05/14 Rosuvastatin Calcium [Crestor] 10 mg PO QHS 06/16/18 Acetaminophen [Tylenol] 1,000 mg PO Q8 PRN tablet 06/26/18 Amlodipine [Norvasc] 5 mg PO DAILY tablet 06/26/18 Aspirin 325 mg PO BIDCM tablet 06/26/18 Cholecalciferol (VIT D3) [Vitamin D3] 2,000 unit PO BID tablet 06/26/18 Duloxetine Hcl [Cymbalta] 60 mg PO DAILY capsule 06/26/18 Hydrochlorothiazide [Hctz] 25 mg PO DAILY tablet 06/26/18 Ibandronate Sodium [Boniva] 150 mg PO Q30D tablet 06/26/18 Lamotrigine [Lamictal] 200 mg PO QHS tablet 06/26/18 Lisinopril [Zestril] 10 mg PO DAILY tablet 06/26/18 Mirtazapine [Remeron] 7.5 mg PO HS tablet 06/26/18 Oxycodone [Oxyir] 5 - 10 mg PO Q6H PRN PRN 7 Days #56 tablet 06/26/18 Senna/Docusate Sodium [Senokot-S] 2 tablet PO BID tablet 06/26/18 The following prescriptions were given: Oxycodone [Oxyir] 5 - 10 mg PO Q6H PRN PRN 7 Days #56 tablet PRN Reason: Pain Primary Care Physician: Fay Day DO [Primary Care Provider] - Test Results: Test results from this visit will be discussed in further detail at your follow- up appointment, if applicable. Please Follow Up With: Dr. Fay Day Please Follow Up With: Mikhail Craig
--- NOTE | 2018-06-26 14:34 | PCM.RU.DC ---
Rehab Discharge Summary DATE OF ADMISSION: 06/18/18 DATE OF DISCHARGE: 06/27/2018 - Rehab Diagnosis Debility secondary to Left THR Subjective: Per patient pain is well controlled and is ready to be discharged home on Saturday06/27/2018. Patient modified independent with walker, gait steady. Patient denied any further questions or concerns. - Physical Exam General: Alert, Oriented x3, Cooperative HEENT: Atraumatic, PERRLA Oral: Moist Mucosa Neck: Supple, No JVD Lungs: Clear to auscultation, Normal air movement Cardiovascular: Regular rate, Regular Rhythm Abdomen: Bowel Sounds Present, Soft, Non Tender Extremities: No clubbing, No cyanosis, No edema Skin: Incision - jeanette intact to left hip, without redness or drng Musculoskeletal: No Tenderness to Palpation of Joints or Extremities Neurological: Cranial nerves II-XII grossly intact, Deep Tendon Reflexes 2+/4 and Symmetrical, Neuro grossly intact, Motor Exam 5/5 strength throughout Psych/Mental Status: Normal Affect, Appropriate, Alert and oriented to time, place, person, mood and affect Vital Signs Temp Pulse Resp BP Pulse Ox 97.7 F L 81 18 126/84 H 96 06/26/18 08:57 06/26/18 08:57 06/26/18 08:57 06/26/18 08:57 06/26/18 08:57 Oxygen Delivery Method Room Air Weight: 94.892 kg Body Mass Index (BMI) 31.8 Intake and Output for Last 24 Hours 06/24/18 06/25/18 06/26/18 23:59 23:59 23:59 Intake Total 440 / 440 1050 / 1050 720 / 720 Balance 440 / 440 1050 / 1050 720 / 720 Discharge Diet: No Restrictions Discharge Activity: Return to Normal Activity, No Restrictions, May Not Drive, May Shower, Use Walker Weight Bearing Status: Weight bearing as tolerated Call your doctor if your incision/area has: Continuous Slow Oozing, Sudden Increased Bleeding, Increased Pain/ Swelling, Increased Redness, Foul Smelling Discharge, Swelling at the incision site Call your doctor if you observe: Fever of 101 or Higher, Coldness, Increased Pain, Numbness or Tingling, Change in Color, Inability to urinate, Inability to have a bowel movement, Shortness of breath, Dizziness, Fainting spells, Swelling in the ankles, Chest pain, Prolonged hiccoughing, Increased palpitations (irregular heartbeat), Calf discomfort, Uncontrolled pain Cleanse incision/area with: Soap & Water Home Medications: Medications to take at Discharge Omeprazole [Prilosec] 20 mg PO DAILY 02/05/14 Rosuvastatin Calcium [Crestor] 10 mg PO QHS 06/16/18 Acetaminophen [Tylenol] 1,000 mg PO Q8 PRN tablet 06/26/18 Amlodipine [Norvasc] 5 mg PO DAILY tablet 06/26/18 Aspirin 325 mg PO BIDCM tablet 06/26/18 Cholecalciferol (VIT D3) [Vitamin D3] 2,000 unit PO BID tablet 06/26/18 Duloxetine Hcl [Cymbalta] 60 mg PO DAILY capsule 06/26/18 Hydrochlorothiazide [Hctz] 25 mg PO DAILY tablet 06/26/18 Ibandronate Sodium [Boniva] 150 mg PO Q30D tablet 06/26/18 Lamotrigine [Lamictal] 200 mg PO QHS tablet 06/26/18 Lisinopril [Zestril] 10 mg PO DAILY tablet 06/26/18 Mirtazapine [Remeron] 7.5 mg PO HS tablet 06/26/18 Oxycodone [Oxyir] 5 - 10 mg PO Q6H PRN PRN 7 Days #56 tablet 06/26/18 Senna/Docusate Sodium [Senokot-S] 2 tablet PO BID tablet 06/26/18 Following Prescrptions Were Given to Patient: Oxycodone [Oxyir] 5 - 10 mg PO Q6H PRN PRN 7 Days #56 tablet PRN Reason: Pain Primary Care Physician: Fay Day DO [Primary Care Provider] - Please Follow Up With: Dr. Fay Day Please Follow Up With: Mikhail Craig Please Follow Up With: Outpatient Therapy Additional Instructions: Last dose of Aspirin 325 mg will be on 07/18/2018 in am for DVT prophylaxis per Orthopedics Disposition: Home Patient Condition:: Stable Rehab Course The patient is a 73 year old F with PMH HTN, GERD, hyperlipidemia, depression, neuropathy, osteoporosis admitted to [facility] on 06/18/2018 with debility secondary to Left total hip replacement, for greater of 3 hours of therapy daily with a goal of returning back home at or near her prior level of functional dependence. Dr. Campos performed a Left total hip replacement on 06/16/2018 due to osteoarthritis at [facility]. 06/06/2018 preop EKG NSR. On 06/16/2018 Left hip post-op X-Ray results as follows; status post left hip arthroplasty, no evidence of acute hardware failure or loosening, no fracture or dislocation, expected postoperative soft tissue changes, stable right hip degenerative changes. Patient's post-op course was uncomplicated. Patient's rehab stay was uncomplicated. Patient will be discharged home with walker, gait steady. Patient will continue ASA 325 mg bid for DVT prophylaxis per Orthopedics recommendation, last dose on 07/18/2018 in am. Patient lives alone in a one story home. Patient was independent with mobility, ADLs, and driving prior to surgery. Patient to f/u with PCP, Orthopedics and Outpatient therapy. Meaningful Use Info Meaningful Use Diagnoses (Choose all that apply): None applicable
--- NOTE | 2018-06-26 18:46 | NURSING ---
Reviewed and agree with LOCAL SALES ASSOCIATE's FIMS and charting
[2018-06-26] MEDS: Mirtazapine 15 MG Tablet 7.5 MG PO (20:29)
[2018-06-26] MEDS: Atorvastatin Calcium 20 MG Tablet PO (20:29)
[2018-06-26] MEDS: lamoTRIgine 100 MG Tablet 200 MG PO (20:29)
[2018-06-26] MEDS: Magnesium Hydroxide 30 ML UDC PO (20:41)
[2018-06-26 20:43] VITALS: BP 131/60; PULSE 77; RESP 16; TEMP 36.8; O2SAT 94
--- NOTE | 2018-06-26 20:45 | NURSING ---
pt requested a dose of Milk of Mag this hs d/t signs and symptoms of constipation. pt tolerated well. will continue to monitor for BM.
--- NOTE | 2018-06-27 02:14 | NURSING ---
REVIEWED AND AGREE WITH ROLLER LEVELER OPERATOR'S FIM AND HANDOFF CHARTING.
[2018-06-27] MEDS: Acetaminophen 500 MG Tablet 1000 MG PO (05:46)
--- NOTE | 2018-06-27 06:02 | NURSING ---
27 jeanette removed at this time from surgical incision in hip. 4 small steri strips applied. incision well approximated and pink. pt tolerated well. no signs or symptoms of infection noted.
[2018-06-27 07:43] VITALS: BP 108/63; PULSE 68; RESP 18; TEMP 36.8; O2SAT 92
[2018-06-27] MEDS: amLODIPine 5 MG Tablet PO (07:58)
[2018-06-27] MEDS: Lisinopril 10 MG Tablet PO (07:58)
[2018-06-27] MEDS: Aspirin 325 MG Tablet PO (07:58)
[2018-06-27] MEDS: DULoxetine Hcl 60 MG Capsule PO (07:58)
[2018-06-27] MEDS: hydroCHLOROthiazide 25 MG Tablet PO (07:58)
[2018-06-27] MEDS: Pantoprazole Sodium 20 MG Tablet PO (07:59)
[2018-06-27] MEDS: oxyCODONE 5 MG Tablet PO (08:01)
--- NOTE | 2018-06-27 10:44 | CASEMGMT ---
Social Work Per nursing pt is requesting a walker. SW met with pt in room. Pt stating that she does have a walker at home but it is too short and it was borrowed from a friend. Pt dgt here and ready to take pt home. Call to Gloria at [facility] who states pt can bring script to [facility] and picking table worker walker on her way home. Script for walker given to pt with instructions from [facility]. Pt and dgt agreeable. WINIFRED Hurtado
--- NOTE | 2018-06-27 11:21 | NURSING ---
Went over discharge instructions, medications and appts with pt. daughter present in room. Pt . verbalized understanding. Pt discharged home with all personal belongings. In stable condition. Pt will pick walker up at [facility].
[2018-06-27 11:26] VITALS: BP 108/63; PULSE 68; RESP 18; TEMP 36.8; O2SAT 92
== END 2018-06-27 10:45 | disposition home or self-care (01) | DRG 561 ==
PROVIDERS: Nurse Practitioner Family; Admitting Provider Psychiatry & Neurology Neurology; Family Provider Internal Medicine; PCP Internal Medicine; Referring Provider Psychiatry & Neurology Neurology
DX: Z47.1 Aftercare following joint replacement surgery (principal); Z96.642 Presence of left artificial hip joint; I10 Essential (primary) hypertension; K21.9 Gastro-esophageal reflux disease without esophagitis; E78.5 Hyperlipidemia, unspecified; F32.9 Major depressive disorder, single episode, unspecified; G62.9 Polyneuropathy, unspecified; M81.0 Age-related osteoporosis without current pathological fracture
CPT/HCPCS: 36415; 80048; 85027; 97110; 97116; 97162; 97166; 97530; 97535; 97802

== ENCOUNTER 2018-07-11 14:36 | Outpatient (RCR) | payer MEDICARE, MEDICAID, SELFPAY ==
[2018-06-18 14:48] VITALS: BMI 31.8
--- NOTE | 2018-07-11 15:55 | HP.PTEVAL_ITS ---
Patient's Visit Information CHARISMA NEGRO is a 73 year old F referred to Physical Therapy by Fredy Campos DO with a diagnosis of PRESENCE OF LEFT ARTIFICIAL HIP REPLACEMENT,AFTERCARE FOLLWING REPLACEMENT. Date of Evaluation: 07/11/18 Physical Therapist: Yoshi Casillas, PT, Cert MDT, OCS - Visit Plan Frequency: 2x /Week Duration: 4 Weeks Plan: PROGRESSIVE GAIT /BALANCE TRAINING,PRE'S KNEE HIP,NUSTEP - Subjective Findings: This 73 y/o female presents to physical therapy with left THR on May at [facility] done by DR. Campos. Patient was transferred to Rehab 06/18/18 then d/c to to 06/27/18. Patient d/c to home with fww and HEP.DME raised toliet seat. Patient then progressed to cane. Patient was recommended to outpatient PT. HOME SITUATION: : 1 story with one step.Patient has h/o neuropathy feet. Patient rec alls hip precaution. posterior lateral approach. Patient surgery affects ability ADLS and housework tasks . Patient surgey affects QOL and function.MEDS oxycodine.Patient plans to see MD next . SOCAIL: single. VOCATION: RETIRED - Pain Left Hip Pain Intensity (Out of 10): 3 Pain Intensity Range: 10 - Objective POSTURE: mild foward posture. GAIT: ambulates with straight cane with 2 point gait with increase stance swing phase during gait cycle. NEURO: intact. STAIRS: one step at at time rail/cane. AROM: hip flexion 90 degrees,knee flexion 120 degrees,abd 25 degrees. MMT: quads/hams 4-/5 ,hip flexion 3+/5,abd 3-/5,ankle 4/5. BALANCE: good - with cane - Goals Goal 1:: Independant with HEP Goal Time Frame: 4-6 Weeks Goal 2:: Normalize gait no cane community distances Goal Time Frame: 4-6 Weeks Goal 3:: Patient to increase strength of quads/hamds 4/5,hip flexion 4-/5,abd 3+/5 to improve function . Goal Time Frame: 4-6 Weeks Goal 4:: Patient improve dynamic balance to good Goal Time Frame: 4-6 Weeks Goal 5:: Patient to improve LFES scale by 10 points to improve function Goal Time Frame: 4-6 Weeks - Rehabilitation Potential Physical Therapy Diagnosis: This patient underwent s/p left THR with decrease strength hip abd ,gait ,balance impairs function and ADL'S Rehabilitation Potential: Good - Anticipated Interventions Patient/Client Instruction: Educate patient on: Condition, Plan of Care For the Purpose of:: To decrease pain, To increase ROM, To improve muscle performance and motor function, To improve ability to perform ADL's, To increase tolerance to activity/condition/position, To improve ability of physical actions for home/community/work/leisure, To improve health of tissue, To decrease soft tissue restriction, To increase flexibility/ROM, To improve endurance, To improve balance, To improve ability to perform tasks related to life management Therapeutic Exercise to Include: Strength training, Endurance training, Balance training, Gait and locomotor training, Active ROM Comment: hip knee For the Purpose of:: To decrease pain, To increase ROM, To improve muscle performance and motor function, To improve ability to perform ADL's, To increase tolerance to activity/condition/position, To improve performance and independence with ADL's, To improve ability of physical actions for home/community/work/leisure, To improve health of tissue, To decrease soft tissue restriction, To increase flexibility/ROM, To improve safety with gait, To assume or resume ADL's, To improve ability to perform tasks related to life management Thank you for the opportunity to evaluate your patient. For Medicare and Medicare HMO plans, please review the plan of care and approve it. It will need to be FAXED BACK to us at [phone] for Medicare purposes. For Medicare only, by signing this I certify the plan of care. Please let me know if there are questions or concerns regarding this plan of care. Physician Signature: Date:
== END 2018-07-11 19:00 | disposition home or self-care (01) ==
LOC: PT 14:36
PROVIDERS: Family Provider Internal Medicine; PCP Internal Medicine; Referring Provider Orthopaedic Surgery; Visit Provider Orthopaedic Surgery
DX: Z96.642 Presence of left artificial hip joint (principal); Z47.1 Aftercare following joint replacement surgery
CPT/HCPCS: 97110; 97162

== ENCOUNTER → 2018-12-05 10:12 | Outpatient (CLI) | payer MEDICARE, SELFPAY ==
[2018-06-18 14:48] VITALS: BMI 31.8
--- NOTE | 2018-12-05 10:15 | BI_ITS ---
MAMMOGRAPHY - BILATERAL SCREENING REASON FOR EXAM: Female, 73 years old. Routine annual screening examination. PERTINENT HISTORY: Sisters with breast cancer. TECHNIQUE: Digital bilateral breast bertha (3D mammographic acquisition) in the CC and MLO projections. 2-D mediolateral oblique (MLO) and craniocaudad (CC) views of both breasts were obtained. CAD: Full Field Digital Mammography with Computer Added Detection was performed. COMPARISON: Comparison is made with prior study dated December 03, 2017 and October 25, 2016. FINDINGS: Breast Composition: There are scattered areas of fibroglandular density. There are no dominant masses or suspicious calcifications. No other significant abnormalities are identified. There has been no significant change since the prior study. BI/SCREEN MAMM (CAD) W/BERTHA BILAT IMPRESSION: Stable bilateral screening mammogram. Yearly follow-up mammogram recommended. (A) ASSESSMENT CATEGORY: BIRADS Category 1: Negative. A letter regarding these results will be sent to the patient by the facility within 30 days. Approximately 10% of breast cancers are not detected by mammography. A normal mammogram should not delay biopsy of a clinically suspicious abnormality. [id number] Electronically Signed: John Mahajan, at 13:33 EDT , Service support ,
== END ==
PROVIDERS: Family Provider Internal Medicine; PCP Internal Medicine; Referring Provider Internal Medicine; Visit Provider Internal Medicine
DX: Z12.31 Encounter for screening mammogram for malignant neoplasm of breast (principal)
CPT/HCPCS: 77063; 77067

== ENCOUNTER → 2019-04-13 06:48 | Outpatient (CLI) | payer MEDICARE, MEDICAID, SELFPAY ==
[2018-06-18 14:48] VITALS: BMI 31.8
--- NOTE | 2019-04-13 06:53 | ECHOCS_ITS ---
Reason For Study: Exercise intolerance Procedure This was a 2D Doppler, Color Flow transthoracic echocardiogram. The study was technically difficult. Contrast injection was performed. Exam performed in department. Left Ventricle Normal LV size. Moderate concentric left ventricular hypertrophy. Left ventricular systolic function is normal. The estimated ejection fraction is 65 %. Diastolic function is indeterminate. No regional wall motion abnormalities noted. Right Ventricle Normal RV size. Normal systolic function. Atria The left atrium is mildly enlarged. Normal right atrium. No doppler evidence for ASD. Mitral Valve There is no mitral annular calcification. Normal mitral valve. Tricuspid Valve Normal tricuspid valve. Mild tricuspid valve insufficiency. Right ventricular systolic pressure estimated to be 29 mmHg. Aortic Valve Trisinus/trileaflet aortic valve. Normal aortic valve. Pulmonic Valve The pulmonic valve is not well visualized. Great Vessels Normal sized aortic root. Pericardium/Pleural No pericardial effusion. Medication Diluted definity 2ml given slow IV push to enhance endocardial definition. MMode/2D Measurements & Calculations LVIDd: 3.6 cm IVSd: 1.5 cm Ao root diam: 3.4 cm LVIDs: 2.3 cm LVPWd: 1.3 cm RVDd: 4.0 cm FS: 34.8 % LAV(MOD-bp): 83.1 ml LA A4 area: 26.6 cm2 RA A4 area: 18.5 cm2 LAV(MOD-bp) Indexed: 40.2 ml/m2 LAV(MOD-sp2): 70.2 ml LAV(MOD-sp4): 89.3 ml Time Measurements MV dec time: 0.29 sec Doppler Measurements & Calculations MV E max glenn: 40.6 cm/sec Lat Peak E' Glenn: 5.4 cm/sec Med Peak E' Glenn: 6.5 cm/sec MV A max glenn: 74.0 cm/sec E/E' lat: 7.5 E/E' med: 6.2 MV E/A: 0.55 MV V2 max: 105.0 cm/sec MV P1/2t max glenn: 79.0 cm/sec Ao V2 max: 127.1 cm/sec MV max P.4 mmHg MV P1/2t: 52.1 msec Ao max P.5 mmHg MV V2 mean: 56.4 cm/sec MV dec slope: 443.8 cm/sec2 MV mean P.5 mmHg MV V2 VTI: 19.4 cm MVA(P1/2t): 4.2 cm2 LV V1 max: 98.5 cm/sec PA V2 max: 106.9 cm/sec TR max glenn: 253.2 cm/sec LV V1 max P.9 mmHg TR max P.8 mmHg Interpretation Summary The study was technically difficult. Contrast injection was performed. Left ventricular systolic function is normal. The estimated ejection fraction is 65 %. Moderate concentric left ventricular hypertrophy. The left atrium is mildly enlarged. Mild tricuspid valve insufficiency. Right ventricular systolic pressure estimated to be 29 mmHg. Diastolic function is indeterminate. Ordering Physician: Fay Day Referring Physician: Fay Day Performed By: Otilio Beltre RCS
--- NOTE | 2019-04-13 12:45 | STRESSREP ---
Stress Test Report Date: 04-13-2019 Procedure: Exercise tolerance test/imaging study Indications: Shortness of breath/dyspnea on exertion Consent: Per the patient Procedure: The patient exercised on a [place] protocol for 3 minutes completing Stage I achieving a peak heart rate of 139 bpm (95 % predicted maximal heart rate) with a peak blood pressure 180/92 mmHg and a peak MET capacity of 4 METs. The baseline ECG demonstrated normal sinus rhythm. The peak exercise ECG demonstrated somatic/motion artifact with no obvious ECG changes. There was an occasional PVC during exercise and recovery. The functional capacity was considered average. There was no complaint of chest discomfort during exercise or recovery. The examination was discontinued secondary to dyspnea. Impression: 1. Technically adequate (percent predicted maximal heart rate greater than 85%) exercise tolerance test 2. Peak exercise ECG with somatic/motion artifact with no obvious ECG changes 3. There was an occasional PVC during exercise and recovery 4. Nuclear images pending Myocardial perfusion imaging study: Technique: The patient was injected with 12.0 mCi of technetium 99m Cardiolite and subsequently rest SPECT Cardiolite nuclear imaging was obtained in the horizontal long, vertical long, and short axis views. The patient exercised on a [place] protocol for 3 minutes completing Stage I achieving a peak heart rate of 139 bpm (95 % predicted maximal heart rate) with a peak blood pressure 180/92 mmHg and a peak MET capacity of 4 METs. The patient was injected with 34.6 mCi of technetium 99m Cardiolite and subsequently stress SPECT Cardiolite nuclear imaging was obtained in the horizontal long, vertical long, and short axis views. A gated Cardiolite study at peak stress was obtained. Interpretation: Rest and stress SPECT Cardiolite nuclear imaging status post realignment, normalization, and attenuation correction, demonstrates the appearance of relative uniform tracer uptake and myocardial perfusion appearing within normal limits. There is end systolic thickening and brightening. The gated Cardiolite study demonstrates myocardial thickening and inward wall motion. The reported LVEF is 68 %. Impression: 1. Rest and stress SPECT Cardiolite nuclear imaging demonstrate relative uniform tracer uptake and myocardial perfusion appearing within normal limits. 2. The gated Cardiolite study reports an LVEF of 68 %. This note was generated with [employer] software. It may contain incorrect words, spelling, and punctuation that were not noted in checking the note before signing.
== END ==
PROVIDERS: PCP Internal Medicine; Referring Provider Internal Medicine; Visit Provider Internal Medicine
DX: R06.02 Shortness of breath (principal); R68.89 Other general symptoms and signs
CPT/HCPCS: 78452; 93017; 93306; A9500; Q9957; A4216; C8929

== ENCOUNTER → 2019-12-23 10:35 | Outpatient (CLI) | payer MEDICARE, MEDICAID, SELFPAY ==
[2018-06-18 14:48] VITALS: BMI 31.8
--- NOTE | 2019-12-23 10:38 | BI_ITS ---
MAMMOGRAPHY - BILATERAL SCREENING REASON FOR EXAM: Female, 74 years old. Routine annual screening examination. PERTINENT HISTORY: Sisters with breast cancer. TECHNIQUE: Digital bilateral breast bertha (3D mammographic acquisition) in the CC and MLO projections. 2-D mediolateral oblique (MLO) and craniocaudad (CC) views of both breasts were obtained. CAD: Full Field Digital Mammography with Computer Added Detection was performed. COMPARISON: Comparison is made with prior study dated 12/05/2018 and 12/03/2017. FINDINGS: Breast Composition: There are scattered areas of fibroglandular density. There are no dominant masses or suspicious calcifications. No other significant abnormalities are identified. There has been no significant change since the prior study. BI/SCREEN MAMM (CAD) W/BERTHA BILAT IMPRESSION: Stable bilateral screening mammogram. Yearly follow-up mammogram recommended. (A) ASSESSMENT CATEGORY: BIRADS Category 1: Negative. A letter regarding these results will be sent to the patient by the facility within 30 days. Approximately 10% of breast cancers are not detected by mammography. A normal mammogram should not delay biopsy of a clinically suspicious abnormality. [id number] Electronically Signed: John Mahajan, at 13:26 EST , Service support ,
--- NOTE | 2019-12-23 10:40 | BD_ITS ---
STUDY: DUAL ENERGY X-RAY ABSORPTIOMETRY / DXA REASON FOR EXAM: Female, 74 years old. STAFF DEVELOPMENT NURSE-SURGICAL EARLY AT 32 YRS OLD -- TAKES DIURETIC IN BP MED -- TAKES 1000MG CALCIUM + MULTIVITAMIN -- HAS BEEN ON BONIVA x3 YRS -- DOES LITTLE EXERCISE -- HX OF LEFT HIP REPLACEMENT -- KEIKO OF 0.75 INCH TECHNIQUE: Bone Mineral Density (BMD) measurements of lumbar spine and right hip were obtained. COMPARISON: Comparison is made with prior study dated 12/03/2017. FINDINGS: Lumbar Spine (L1-L4): g/cm2 (1.250) / T-score (0.4) / Z-score (2.2) Findings are suggestive of normal bone density with a low fracture risk. Right Femur Total: g/cm2 (0.807) / T-score (-1.6) / Z-score (0.2) Right Femoral Neck: g/cm2 (0.857) / T-score (-1.3) / Z-score (0.7) The T-Scores on the most recent prior examination were: Lumbar Spine (L1-L4): There has been improvement of bone density since the previous examination. Right Femur Total: which represents a worsening of 0.4%. BD/Dexa Bone Density Study IMPRESSION: The patient is considered osteopenic as outlined below according to World Larry Organization (WHO) criteria with a moderate fracture risk. There has been worsening of bone density since the previous examination. Reference Information: The T-score is the number of standard deviations above or below the standard which is normal for young adults at their peak bone mineral density. The World Health Organization (WHO) interprets the T-scores as follows: Above -1 Normal bone density Between -1 and -2.5 Osteopenia Equal to / or below -2.5 Osteoporosis As a practical clinical guideline, osteopenia may be graded as follows: Mild -1 through -1.5 Moderate -1.6 through -2.0 Severe -2.1 through -2.4 The Z-score is the number of standard deviations above or below age-matched controls. A Z-score of less than -1.5 would be considered abnormal. References: 1. NIH Osteoporosis and Related Bone Diseases www osteo.org 2. International Society for Clinical Densitometry www iscd.org 3. National Osteoporosis Foundation www nof.org Electronically Signed: John Mahajan, at 14:28 EST , Service support ,
== END ==
PROVIDERS: PCP Internal Medicine; Referring Provider Internal Medicine; Visit Provider Internal Medicine
DX: Z12.31 Encounter for screening mammogram for malignant neoplasm of breast (principal); Z78.0 Asymptomatic menopausal state
CPT/HCPCS: 77063; 77067; 77080

== ENCOUNTER → 2020-12-16 15:44 | Outpatient (CLI) | payer MEDICARE, SELFPAY ==
--- NOTE | 2020-12-16 15:47 | BI_ITS ---
MAMMOGRAPHY - BILATERAL SCREENING REASON FOR EXAM: Female, 75 years old. Routine annual screening examination. PERTINENT HISTORY: Sisters with breast cancer. TECHNIQUE: Digital bilateral breast bertha (3D mammographic acquisition) in the CC and MLO projections. 2-D mediolateral oblique (MLO) and craniocaudad (CC) views of both breasts were obtained. CAD: Full Field Digital Mammography with Computer Added Detection was performed. COMPARISON: Comparison is made with prior study dated 12/23/2019 and 12/05/2018. FINDINGS: Breast Composition: The breasts are almost entirely fatty. There are no dominant masses or suspicious calcifications. No other significant abnormalities are identified. There has been no significant change since the prior study. BI/SCRN MAMM (CAD)W/BERTHA BILAT IMPRESSION: Stable bilateral screening mammogram. Yearly follow-up mammogram recommended. (A) ASSESSMENT CATEGORY: BIRADS Category 1: Negative. A letter regarding these results will be sent to the patient by the facility within 30 days. Approximately 10% of breast cancers are not detected by mammography. A normal mammogram should not delay biopsy of a clinically suspicious abnormality. [id number] Electronically Signed: John Mahajan MD at 8:12 EDT , Service support ,
== END ==
PROVIDERS: PCP Internal Medicine; Referring Provider Internal Medicine; Visit Provider Internal Medicine
DX: Z12.31 Encounter for screening mammogram for malignant neoplasm of breast (principal)
CPT/HCPCS: 77063; 77067

== ENCOUNTER 2021-04-18 16:05 | Outpatient (CLI) | payer MEDICARE, SELFPAY ==
--- NOTE | 2021-04-18 16:45 | MRI_ITS ---
STUDY: MRI LUMBAR SPINE WITHOUT CONTRAST REASON FOR EXAM: Female, 75 years old. Abn. EMG TECHNIQUE: Standardized fat and water weighted pulse sequences were obtained in the sagittal and axial planes. COMPARISON: None FINDINGS: No aggressive process or acute fracture. Heterogeneous marrow signal noted without suspicious features. Normal lumbar lordosis. There is a dextroscoliosis of the lumbar spine. Normal conus medullaris that terminates at the T12-L1 level. L1-2: Mild to moderate disc space narrowing with a diffuse disc osteophyte complex. Normal bilateral facet joints. Normal central canal and bilateral lateral recesses. Normal bilateral intervertebral neural foramina. L2-3: Moderate to severe disc space narrowing with a diffuse disc osteophyte complex.. Normal bilateral facet joints. Normal central canal and bilateral lateral recesses. Normal bilateral intervertebral neural foramina. L3-4: Moderate to severe disc space narrowing with a diffuse disc osteophyte complex. Normal bilateral facet joints. Normal central canal and bilateral lateral recesses. Normal bilateral intervertebral neural foramina. Right retrolisthesis of L3 on L4 of less than 2 mm. L4-5: Mild to moderate posterior disc space narrowing with asymmetric right paracentral/foraminal posterior disc spur complex, contributing to compression of the exiting right nerve root. Slight retrolisthesis of L4 and L5 of 2 to 3 mm. Mild facet joint hypertrophy. Normal central canal and bilateral lateral recesses. Moderate right foraminal stenosis with nerve root compression. Normal left neural foramen. L5-S1: Mild posterior disc space narrowing with a diffuse disc spur complex. Normal mild facet joint hypertrophy. Normal central canal and bilateral lateral recesses. Normal bilateral intervertebral neural foramina. Normal visualized sacral ala. There is mild paraspinal muscular atrophy. MRI/Spine Lumbar (Routine) IMPRESSION: 1. Multilevel degenerative changes, as described above. 2. Moderate right foraminal stenosis with nerve root compression at L4-L5. Electronically Signed: Malik Menendez MD at 9:58 EST ,
== END 2021-04-18 23:59 | disposition home or self-care (01) ==
PROVIDERS: PCP Internal Medicine; Visit Provider Internal Medicine
DX: R94.131 Abnormal electromyogram [EMG] (principal)
CPT/HCPCS: 72148

== ENCOUNTER 2021-06-15 10:51 | Emergency (ER) | payer MEDICARE, SELFPAY ==
[2021-06-15 10:54] VITALS: BP 160/109; PULSE 104; RESP 18; TEMP 36.5; O2SAT 94; BMI 33.3
--- NOTE | 2021-06-15 11:19 | EKG12_ITS ---
Test Reason : GEN ILLNESS Blood Pressure : / mmHG Vent. Rate : 085 BPM Atrial Rate : 085 BPM P-R Int : 176 ms QRS Dur : 088 ms QT Int : 374 ms P-R-T Axes : 051 -20 084 degrees QTc Int : 445 ms Sinus rhythm with Premature supraventricular complexes Incomplete left bundle branch block Confirmed by NARCISA JOSHI, BOYD ([id number]), medical transcription editor ANNIA MALDONADO ([id number]) on 06/16/2021 10:27:23 AM Referred By: MARIANNE Confirmed By:BOYD BREWSTER MD
--- NOTE | 2021-06-15 11:19 | CT_ITS ---
STUDY: CT BRAIN WITHOUT CONTRAST REASON FOR EXAM: Female, 76 years old. Vertigo RADIATION DOSAGE (If Supplied By Facility): CTDIvol = ( 44.99 ) mGy, DLP = ( 779.24 ) mGycm TECHNIQUE: Transaxial CT imaging of the brain was performed without administration of intravenous contrast material. Individualized dose optimization techniques were used for this CT. COMPARISON: Comparison is made with prior study dated 02/05/2014. FINDINGS: Normal soft tissue structures. Normal calvarium. There is mild cerebral atrophy with widening of the extra-axial spaces and ventricular dilatation. Normal white matter tracts of the cerebral hemispheres. 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 Normal brainstem. Normal cerebellum. There is no intracranial hemorrhage. There are no findings of an acute ischemic infarction. Atherosclerotic calcification of the cavernous portions of the internal carotid arteries and vertebral arteries. Normal visualized paranasal sinuses. CT/Brain/Head without Contrast IMPRESSION: Chronic involutional changes of the brain. Electronically Signed: John Mahajan MD at 12:26 EDT ,
--- NOTE | 2021-06-15 11:21 | EX.ED.DYSGE1 ---
HPI History of Present Illness Chief Complaint: General Illness Informant: patient Narrative Narrative: Patient reports dizziness with vertigo symptoms since May 12. On May 12 she received an injection in her lumbar spine for the pain management doctor. After leaving there she felt slightly dizzy. She was seen by her PCP who gave her instructions on Drew maneuvers and asked her to speak with her psychiatrist regarding changing her psych med dosing. Patient states the spinning sensation has improved but she still feels very foggy and occasionally off balance. No fever or chills. No chest pain or palpitations. [facility] Medical History (Updated 06/15/21 @ 14:[address] Staci William MD) High cholesterol Hx of gastroesophageal reflux (GERD) Hypertension Home Medications omeprazole 20 mg PO DAILY 02/05/14 [History Last Taken 06/16/18 06:45 20 MG] rosuvastatin 10 mg PO QHS 06/16/18 [History Last Taken Unknown] Ibandronate Sodium [Boniva] 150 mg PO Q30D tablet 06/26/18 [Rx Last Taken Unknown] amlodipine 5 mg PO DAILY tablet 06/26/18 [Rx Last Taken Unknown] duloxetine 60 mg PO DAILY capsule 06/26/18 [Rx Last Taken Unknown] hydrochlorothiazide 25 mg PO DAILY tablet 06/26/18 [Rx Last Taken Unknown] lamotrigine 200 mg PO QHS tablet 06/26/18 [Rx Last Taken Unknown] lisinopril 10 mg PO DAILY tablet 06/26/18 [Rx Last Taken Unknown] mirtazapine 7.5 mg PO HS tablet 06/26/18 [Rx Last Taken Unknown] cholecalciferol (vitamin D3) [Vitamin D3] 10,000 unit PO DAILY 06/15/21 [History Last Taken Unknown] coenzyme Q10 [Co Q-10] 200 mg PO DAILY 06/15/21 [History Last Taken Unknown] gabapentin 300 mg PO DAILY 06/15/21 [History Last Taken Unknown] meclizine 25 mg PO TID PRN #20 tab 06/15/21 [Rx Last Taken Unknown] trazodone 50 mg PO DAILY 06/15/21 [History Last Taken Unknown] trazodone 100 mg PO QHS 06/15/21 [History Last Taken Unknown] vitamin B6-vitamin E-magnesium 1 tab PO DAILY 06/15/21 [History Last Taken Unknown] Allergy/AdvReac Type Severity Reaction Status Date / Time No Known Allergies Allergy Verified 06/15/21 10:52 Surgical History (Updated 06/15/21 @ 12:30 by Courtney Macario) History of hip replacement Social History Smoking Status: Never smoker ROS ROS ED Constitutional Constitutional ED: Denies chills or fever(s) Eyes Eyes: Denies change in vision ENT ENT ED: Denies sore throat Cardiovascular Cardiovascular: Denies chest pain Respiratory/Chest Respiratory/Chest: Denies cough or dyspnea Gastrointestinal Gastrointestinal: Reports nausea; Denies abdominal pain or vomiting Genitourinary Genitourinary ED: Denies dysuria Musculoskeletal Musculoskeletal: Denies back pain or neck pain Integumentary Denies rash Neurologic Neurologic: Reports headache(s); Denies paresthesias or weakness Allergic/Immunologic Allergic/Immunologic ED: Denies urticaria EXAM Physical Exam Const Vital Signs: 06/15/21 10:54 06/15/21 11:53 06/15/21 12:37 Temperature 97.7 F L Temperature Source Temporal Pulse Rate 104 H 78 Respiratory Rate 18 14 Respiratory Effort Normal Non-Labored Respiratory Pattern Normal Blood Pressure 160/109 H 124/87 H Blood Pressure Mean 126 99 Pulse Ox 94 93 Oxygen Delivery Method Room Air Room Air Positive well nourished and well developed General Appearance ED: well developed HEENT Reports TM's clear and moist mucous membranes Tympanic Membrane ED: Yes TM's clear Eyes PERRL and EOMs intact bilaterally Neck supple Chest Wall inspection of chest normal and palpation of chest normal Resp normal respiratory effort and clear to auscultation bilaterally Cardio regular rate and regular rhythm GI non-tender Auscultation: hypoactive bowel sounds Palpation: soft Extremity normal to inspection Neuro oriented x3 and no sensory deficits noted Sensorium / Orientation: alert Motor Exam: strength 5/5 throughout Psych mental status grossly normal Skin no rashes or lesions noted MDM MDM MDM Narrative Medical decision making narrative: Patient given a dose of Antivert. Lab work, EKG, head CT obtained. Lab Data Attestation: I reviewed the patient's lab results. Labs: Laboratory Results - last 24 hr 06/15/21 06/15/21 11:40 11:40 WBC 8.8 RBC 4.14 L Hgb 12.7 Hct 39.6 MCV 95.7 MCH 30.7 MCHC 32.1 RDW Std Deviation 51.0 H RDW Coeff of Yina 14.6 Plt Count 268 MPV 9.4 Immature Gran % (Auto) 0.600 Neut % (Auto) 75.0 H Lymph % (Auto) 14.0 L Sullivan % (Auto) 9.1 Eos % (Auto) 1.0 Baso % (Auto) 0.3 Absolute Neuts (auto) 6.6 Absolute Lymphs (auto) 1.23 Nucleated RBC % 0 Sodium 139 Potassium 4.0 Chloride 105 Carbon Dioxide 28.0 Anion Gap 6 BUN 16 Creatinine 0.95 Estim Creat Clear Calc 49.23 Est GFR (MDRD) Af Amer 73 Est GFR (MDRD) Non-Af 60 BUN/Creatinine Ratio 16.8 Glucose 129 H Calcium 8.9 Radiography Diagnostic Testing: Clinical Impression(s) from Imaging Studies Brain CT 06/15/21 11:19 IMPRESSION: Chronic involutional changes of the brain. Electronically Signed: John Mahajan MD at 12:26 EDT , EKG Initial EKG: Attestation: I personally reviewed and interpreted this EKG as follows: Interpretation: Sinus Rhythm (Sinus at 85 with no acute ischemia. PACs noted.) Treatment and Re-Evaluation Narrative: Repeat evaluation patient does not show any significant change. When we again reviewed the handout having her do Drew maneuvers, she states she was told not to do the one laying down. Instead she just sits up and moves her head up and down and side to side. When she does lie down she gets recurrent vertigo symptoms. I advised her that this tells me that her symptoms are consistent with peripheral vertigo when she needs to do the full Drew maneuvers. She will also be given Antivert. Return instructions are provided. Patient to follow-up with her primary care physician. Discharge Plan Triage Chief Complaint: General Illness ED Provider: Staci William Dx/Rx/DC Orders Clinical Impression: Peripheral vertigo Instructions: ED BPV Vertigo Prescriptions: New meclizine 25 mg tablet 25 mg PO TID PRN (Reason: dizziness) Qty: 20 RF: 0 No Action omeprazole 20 MG capsule 20 mg PO DAILY RF: 0 rosuvastatin 10 MG tablet 10 mg PO QHS RF: 0 amlodipine 5 MG tablet 5 mg PO DAILY RF: 0 lisinopril 10 MG tablet 10 mg PO DAILY RF: 0 hydrochlorothiazide 25 MG tablet 25 mg PO DAILY RF: 0 mirtazapine 15 MG tablet 7.5 mg PO HS RF: 0 lamotrigine 100 MG tablet 200 mg PO QHS RF: 0 duloxetine 60 MG capsule 60 mg PO DAILY RF: 0 Ibandronate Sodium [Boniva] 150 MG tablet 150 mg PO Q30D RF: 0 trazodone 50 mg Tablet 50 mg PO DAILY RF: 0 trazodone 100 mg tablet 100 mg PO QHS RF: 0 vitamin B6-vitamin E-magnesium Tablet 1 tab PO DAILY RF: 0 gabapentin 300 mg Tablet 300 mg PO DAILY RF: 0 coenzyme Q10 [Co Q-10] 200 mg Capsule 200 mg PO DAILY RF: 0 cholecalciferol (vitamin D3) [Vitamin D3] 1,000 UNIT tablet 10,000 unit PO DAILY RF: 0 Primary Care Provider: Fay Day Referrals: Fay Day DO [Primary Care Provider] - 1 Week if not improving Disposition Disposition: Home, Self Care
[2021-06-15] MEDS: Meclizine HCl 25 MG Tablet PO (11:44)
[2021-06-15 11:50] LABS: Absolute Lymphocyte Count 1.23 X10^3/uL (0.83-4.51); Absolute Neutrophil Count 6.6 X10^3/uL (2.0-7.7); Basophil# 0.03 X10^3/uL; Basophil% 0.3 % (0-1); Eosinophil# 0.09 X10^3/uL; Hematocrit 39.6 % (37-47); Hemoglobin 12.7 g/dL (12.0-15.0); Lymphocyte # 1.23 X10^3/ul (0.83-4.51); Mean Corp Hgb Conc 32.1 g/dL (32-36); Mean Corpuscular Hgb 30.7 pg (27.0-32.0); Mean Corpuscular Volume 95.7 fL (81-99); Mean Platelet Vol. 9.4 fl (6.2-12.0); Monocyte% 9.1 % (0-10); NRBC Flagged by Analyzer 0 % (0-5); Neutrophil # 6.59 X10^3/uL (2.7-7.7); Platelet Count 268 K/mm3 (150-450); RBC Distribution Width CV 14.6 % (11.6-14.6); Red Blood Count 4.14 M/mm3 (4.2-5.4); White Blood Count 8.8 K/mm3 (4.4-11.0)
[2021-06-15 12:03] LABS: Anion Gap 6 (5-15); BUN 16 mg/dL (7-18); BUN/Creat Ratio 16.8 RATIO (10-20); Calcium,Total 8.9 mg/dL (8.5-10.1); Chloride 105 mmol/L (98-107); Creatinine, Serum 0.95 mg/dL (0.55-1.02); EST Glomerular Filtration Rate 60 mL/min (>60); Est Glom Filt Rate - Afr Amer 73 mL/min (>60); Estimated Creatinine Clearance 49.23 ml/min; Glucose 129 mg/dL (74-106); Sodium Level 139 mmol/L (136-145)
[2021-06-15 12:37] VITALS: BP 124/87; PULSE 78; RESP 14; O2SAT 93
[2021-06-15 14:37] VITALS: BP 142/75; PULSE 81; RESP 18; O2SAT 93
== END 2021-06-15 14:40 | disposition home or self-care (01) ==
PROVIDERS: Emergency Provider Emergency Medicine; PCP Internal Medicine; Visit Provider Emergency Medicine
DX: H81.399 Other peripheral vertigo, unspecified ear (principal); I10 Essential (primary) hypertension; E78.00 Pure hypercholesterolemia, unspecified; K21.9 Gastro-esophageal reflux disease without esophagitis; Z79.899 Other long term (current) drug therapy; I49.1 Atrial premature depolarization
CPT/HCPCS: 70450; 80048; 85025; 93005; 99285; A4216

== ENCOUNTER 2021-10-06 10:08 | Emergency (ER) | payer MEDICARE, SELFPAY ==
[2021-10-06 10:09] VITALS: BP 152/94; PULSE 93; RESP 18; TEMP 36.6; O2SAT 95; BMI 31.7
[2021-10-06 10:11] VITALS: BP 152/94; PULSE 93; RESP 18; TEMP 36.6; O2SAT 95
--- NOTE | 2021-10-06 10:37 | EKG12_ITS ---
Test Reason : Blood Pressure : / mmHG Vent. Rate : 074 BPM Atrial Rate : 074 BPM P-R Int : 184 ms QRS Dur : 088 ms QT Int : 376 ms P-R-T Axes : 039 -23 056 degrees QTc Int : 417 ms Normal sinus rhythm Normal ECG Confirmed by NARCISA JOSHI, BOYD ([id number]), graphic editor BEV WALTERS ([id number]) on 10/10/2021 8:02:37 AM Referred By: CHRISTINA Confirmed By:BOYD BREWSTER MD
--- NOTE | 2021-10-06 10:38 | EX.ED.DYSGE1 ---
HPI History of Present Illness Chief Complaint: General Illness Narrative Narrative: 76-year-old female presents with feeling of not being well, malaise for the last few months. She states she has not felt well since May, 5 months ago. She was seen in the emergency department reportedly for vertigo. She followed up with Dr. Tafoya and was put on a tilt table. She had nystagmus, and then had that repeated a week later and her symptoms were not the same. She states she does not feel right in the head. She denies any paresthesias but states she has intermittent headaches, intermittent lightheadedness. She denies any chest pain or shortness of breath. No dysuria or hematuria. No other symptoms. She has an appointment with her primary care physician on Saturday but presents to the emergency department mainly because she states that she thinks she may have sleep apnea. She states that she would like tests run. [facility] Medical History (Updated 10/06/21 @ 13:29 by Wally Fox MD) Depression High cholesterol Hx of gastroesophageal reflux (GERD) Hypertension Home Medications omeprazole 20 mg capsule,delayed release 20 mg PO DAILY gerd 02/05/14 [History Last Taken 06/16/18 06:45 20 MG] rosuvastatin 10 mg tablet 10 mg PO QHS cholestrol 06/16/18 [History Last Taken Unknown] Ibandronate Sodium [Boniva] 150 mg PO Q30D 06/26/18 [Rx Last Taken Unknown] amlodipine 5 mg tablet 5 mg PO DAILY 06/26/18 [Rx Last Taken Unknown] duloxetine 60 mg capsule,delayed release 60 mg PO DAILY 06/26/18 [Rx Last Taken Unknown] hydrochlorothiazide 25 mg tablet 25 mg PO DAILY 06/26/18 [Rx Last Taken Unknown] lamotrigine 100 mg tablet 200 mg PO QHS 06/26/18 [Rx Last Taken Unknown] lisinopril 10 mg tablet 10 mg PO DAILY 06/26/18 [Rx Last Taken Unknown] mirtazapine 15 mg tablet 7.5 mg PO HS 06/26/18 [Rx Last Taken Unknown] cholecalciferol (vitamin D3) 25 mcg (1,000 unit) tablet (Vitamin D3) 10,000 unit PO DAILY 06/15/21 [History Last Taken Unknown] coenzyme Q10 200 mg capsule (Co Q-10) 200 mg PO DAILY 06/15/21 [History Last Taken Unknown] gabapentin 300 mg tablet 300 mg PO DAILY 06/15/21 [History Last Taken Unknown] meclizine 25 mg tablet 25 mg PO TID PRN dizziness #20 tabs 06/15/21 [Rx Last Taken Unknown] trazodone 100 mg tablet 100 mg PO QHS 06/15/21 [History Last Taken Unknown] trazodone 50 mg tablet 50 mg PO DAILY 06/15/21 [History Last Taken Unknown] vitamin B6-vitamin E-magnesium tablet 1 tab PO DAILY 06/15/21 [History Last Taken Unknown] Allergy/AdvReac Type Severity Reaction Status Date / Time No Known Allergies Allergy Verified 10/06/21 10:11 Surgical History History of hip replacement Social History Smoking Status: Never smoker ROS ROS ED ROS Narrative Constitutional: No fever, no chills. HEENT: No sore throat. No neck pain. No loss of vision. No rhinorrhea. Cardiovascular: No chest pain. No palpitations. No pedal edema. Respiratory: No cough, no shortness of breath. Abdominal: No abdominal pain. No nausea. No vomiting. Genitourinary: No dysuria. No hematuria. Musculoskeletal: No myalgias. No arthralgias. Neurologic: Intermittent headaches. No dizziness. Questionable lightheadedness. Does not feel right in the head. Skin: No rash. No change in color. Psychiatric: No depression. No anxiety. EXAM Physical Exam Narrative Exam Narrative: Afebrile. Vital signs noted. HEENT: Normocephalic. Atraumatic. PERRL, EOMI. Neck soft and supple. No point tenderness or step off. Cardiovascular: Regular rate and rhythm. No murmurs, rubs, or gallops appreciated. Respiratory: No tachypnea. Lungs clear to auscultation bilaterally. Gastrointestinal: Abdomen soft, nontender, with normoactive bowel sounds. No rebound or guarding. Neurological: Awake. Alert. Nonfocal, nonlateralizing. Normal cerebellar testing. Skin: No rash. Normal color. No pallor. Musculoskeletal: No pedal edema. Full range of motion extremities. Const Vital Signs: 10/06/21 10:09 10/06/21 10:11 10/06/21 13:40 Temperature 97.9 F 97.9 F Temperature Source Temporal Temporal Pulse Rate 93 93 Respiratory Rate 18 18 Blood Pressure 152/94 H 152/94 H 139/81 H Blood Pressure Mean 113 113 Pulse Ox 95 95 Oxygen Delivery Method Room Air Room Air MDM MDM MDM Narrative Medical decision making narrative: I will obtain baseline screening labs. Although the patient is being treated for depression she denies any suicidal ideation or active hallucinations, no homicidal ideation. I do not feel that she meets any criteria for emergent psychiatric evaluation. She states she sees Dr. Marie and has an appointment scheduled with him on October 19. EKG interpreted by myself shows normal sinus rhythm at 74 bpm without ectopy or acute ST changes. No STEMI. Her laboratory work is grossly unremarkable with a normal white count of 6.1, normal hemoglobin of 12.9, hematocrit 40.0, platelet count normal at 327. Electrolyte panel shows BUN slightly elevated 21 with creatinine of 1.0. LFTs show AST of 12 and ALT 28 but otherwise unremarkable. Urinalysis negative for infection with 0-5 WBCs. I do not feel that antibiotics are indicated. At this point in time, I do feel that her medical screening is negative. I do feel that her feeling of malaise and lightheadedness may be secondary to a chronic condition. She has an appointment with Dr. Day on Saturday, 3 days from now. I feel she can be discharged safely home with follow-up. Return instructions to the emergency department were reviewed. Disposition is discharged home in stable condition. Lab Data Attestation: I reviewed the patient's lab results. Labs: Laboratory Results - last 24 hr 10/06/21 10/06/21 10/06/21 10:25 10:25 10:55 WBC 6.1 RBC 4.13 L Hgb 12.9 Hct 40.0 MCV 96.9 MCH 31.2 MCHC 32.3 RDW Std Deviation 50.5 H RDW Coeff of Yina 14.2 Plt Count 327 MPV 10.0 Immature Gran % (Auto) 0.300 Neut % (Auto) 63.6 Lymph % (Auto) 26.5 [place] % (Auto) 8.2 Eos % (Auto) 0.7 Baso % (Auto) 0.7 Absolute Neuts (auto) 3.9 Absolute Lymphs (auto) 1.62 Nucleated RBC % 0 Sodium 136 Potassium 4.0 Chloride 101 Carbon Dioxide 28.0 Anion Gap 7 BUN 21 H Creatinine 1.06 H Estim Creat Clear Calc 44.12 Est GFR (MDRD) Af Amer 64 Est GFR (MDRD) Non-Af 53 L BUN/Creatinine Ratio 19.8 Glucose 154 H Calcium 9.3 Total Bilirubin 0.40 AST 12 L ALT 28 Alkaline Phosphatase 87 Total Protein 7.5 Albumin 3.8 Globulin 3.7 Albumin/Globulin Ratio 1.0 Urine Color Yellow Urine Clarity Clear Urine pH 6.0 Ur Specific Tynan 1.015 Urine Protein Negative Urine Glucose (UA) Normal Urine Ketones Negative Urine Occult Blood Negative Urine Nitrite Negative Urine Bilirubin Negative Urine Urobilinogen Normal Ur Leukocyte Esterase 25 H Urine RBC 0 SEEN Urine WBC 0-5 SEEN Ur Squamous Epith Cells 0-5 SEEN Urine Bacteria 0 SEEN Urine Mucus 0 SEEN Discharge Plan Triage Chief Complaint: General Illness Other Complaint: Cold Sx ED Provider: Wally Fox Dx/Rx/DC Orders Clinical Impression: Malaise, Depression, Lightheadedness Instructions: Depression: Tips to Help Yourself, ED Dizziness, Uncertain Cause Prescriptions: No Action omeprazole 20 MG capsule 20 mg PO DAILY rosuvastatin 10 MG tablet 10 mg PO QHS amlodipine 5 MG tablet 5 mg PO DAILY 0RF lisinopril 10 MG tablet 10 mg PO DAILY 0RF hydrochlorothiazide 25 MG tablet 25 mg PO DAILY 0RF mirtazapine 15 MG tablet 7.5 mg PO HS 0RF lamotrigine 100 MG tablet 200 mg PO QHS 0RF duloxetine 60 MG capsule 60 mg PO DAILY 0RF Ibandronate Sodium [Boniva] 150 MG tablet 150 mg PO Q30D 0RF trazodone 50 mg Tablet 50 mg PO DAILY trazodone 100 mg tablet 100 mg PO QHS Label Comments: TAKE 1 TABLET BY MOUTH EVERY MORNING AND TAKE ONE AND ONE-HALF TABLETS BY MOUTH AT BEDTIME vitamin B6-vitamin E-magnesium Tablet 1 tab PO DAILY Label Comments: Pt states she takes vit b6- 200 mg daily. gabapentin 300 mg Tablet 300 mg PO DAILY coenzyme Q10 [Co Q-10] 200 mg Capsule 200 mg PO DAILY cholecalciferol (vitamin D3) [Vitamin D3] 1,000 UNIT tablet 10,000 unit PO DAILY meclizine 25 mg tablet 25 mg PO TID PRN (Reason: dizziness) Qty: 20 0RF Primary Care Provider: Fay Day Referrals: Fay Day DO [Primary Care Provider] - Keep Justin appointment Disposition Disposition: Home, Self Care Discharge Date/Time: 10/06/21 13:43
[2021-10-06 10:57] LABS: Absolute Lymphocyte Count 1.62 X10^3/uL (0.83-4.51); Absolute Neutrophil Count 3.9 X10^3/uL (2.0-7.7); Basophil# 0.04 X10^3/uL; Basophil% 0.7 % (0-1); Eosinophil# 0.04 X10^3/uL; Eosinophils% 0.7 % (0-5); Hemoglobin 12.9 g/dL (12.0-15.0); Lymphocyte # 1.62 X10^3/ul (0.83-4.51); Lymphocyte % 26.5 % (19-41); Mean Corp Hgb Conc 32.3 g/dL (32-36); Mean Corpuscular Hgb 31.2 pg (27.0-32.0); Mean Corpuscular Volume 96.9 fL (81-99); Monocyte% 8.2 % (0-10); NRBC Flagged by Analyzer 0 % (0-5); Neutrophil % 63.6 % (47-70); Platelet Count 327 K/mm3 (150-450); RBC Distribution Width CV 14.2 % (11.6-14.6); RBC Distribution Width SD 50.5 fl (35.1-43.9); Red Blood Count 4.13 M/mm3 (4.2-5.4); White Blood Count 6.1 K/mm3 (4.4-11.0)
[2021-10-06 11:07] LABS: Bacteria 0 SEEN /hpf (None Seen); Mucous, Urine 0 SEEN /hpf (<or=2+); Red Blood Cells-Urine 0 SEEN /hpf (0-5)
[2021-10-06 11:11] LABS: Color, Urine Yellow (Yellow); Glucose, Dipstick Normal (Normal); Ketone-Dipstick Negative (Negative); Leukocyte Esterase-Dipstick 25 /ul (Negative); Nitrite-Dipstick Negative (Negative); Occult Blood-Urine Negative /ul (Negative); Protein-Dipstick Negative (Negative); Specific Gravity, Urine 1.015 (1.002-1.030); Urine Bilirubin Dipstick Negative (Negative); Urine Clarity Clear (Clear); Urine Urobilinogen Normal (Normal)
[2021-10-06 11:15] LABS: AST(SGOT) 12 U/L (15-37); Alanine Aminotransfer ALT/SGPT 28 U/L (13-56); Albumin, Serum 3.8 g/dL (3.2-5.0); Alkaline Phosphatase 87 U/L (45-117); Anion Gap 7 (5-15); BUN 21 mg/dL (7-18); BUN/Creat Ratio 19.8 RATIO (10-20); Calcium,Total 9.3 mg/dL (8.5-10.1); Chloride 101 mmol/L (98-107); Creatinine, Serum 1.06 mg/dL (0.55-1.02); EST Glomerular Filtration Rate 53 mL/min (>60); Est Glom Filt Rate - Afr Amer 64 mL/min (>60); Estimated Creatinine Clearance 44.12 ml/min; Globulin 3.7 g/dL (2.2-4.2); Glucose 154 mg/dL (74-106); Protein, Total 7.5 g/dL (6.4-8.2); Sodium Level 136 mmol/L (136-145)
[2021-10-06 11:27] LABS: Squamous Epithelial Cells - UA 0-5 SEEN /hpf (5-10); White Blood Cells 0-5 SEEN /hpf (0-5)
[2021-10-06 13:40] VITALS: BP 139/81
== END 2021-10-06 13:43 | disposition home or self-care (01) ==
PROVIDERS: Emergency Provider Emergency Medicine; PCP Internal Medicine; Visit Provider Emergency Medicine
DX: R42 Dizziness and giddiness (principal); R53.81 Other malaise; F32.A Depression, unspecified; I10 Essential (primary) hypertension; E78.00 Pure hypercholesterolemia, unspecified; K21.9 Gastro-esophageal reflux disease without esophagitis; Z79.899 Other long term (current) drug therapy
CPT/HCPCS: 80053; 81001; 85025; 93005; 99283; A4216

== ENCOUNTER → 2021-12-20 | Outpatient (CLI) | payer MEDICARE, SELFPAY ==
--- NOTE | 2021-12-20 12:44 | BI_ITS ---
MAMMOGRAPHY - BILATERAL SCREENING REASON FOR EXAM: Female, 76 years old. Routine annual screening examination. PERTINENT HISTORY: Sisters with breast cancer. TECHNIQUE: Digital bilateral breast bertha (3D mammographic acquisition) in the CC and MLO projections. 2-D mediolateral oblique (MLO) and craniocaudad (CC) views of both breasts were obtained. CAD: Full Field Digital Mammography with Computer Added Detection was performed. COMPARISON: Comparison is made with prior study 12/16/2020 and 12/23/2019. FINDINGS: Breast Composition: The breasts are almost entirely fatty. There are no dominant masses or suspicious calcifications. No other significant abnormalities are identified. There has been no significant change since the prior study. BI/SCRN MAMM (CAD)W/BERTHA BILAT IMPRESSION: Stable bilateral screening mammogram. Yearly follow-up mammogram recommended. (A) ASSESSMENT CATEGORY: BIRADS Category 1: Negative. A letter regarding these results will be sent to the patient by the facility within 30 days. Approximately 10% of breast cancers are not detected by mammography. A normal mammogram should not delay biopsy of a clinically suspicious abnormality. [id number] Electronically Signed: John Mahajan MD at 13:39 EDT ,
== END | disposition home or self-care (01) ==
LOC: OPBI 12:43
PROVIDERS: PCP Internal Medicine; Visit Provider Internal Medicine
DX: Z12.31 Encounter for screening mammogram for malignant neoplasm of breast (principal); Z80.3 Family history of malignant neoplasm of breast
CPT/HCPCS: 77063; 77067

== ENCOUNTER → 2022-07-17 | Outpatient (CLI) | payer MEDICARE, SELFPAY ==
--- NOTE | 2022-07-17 10:01 | RAD_ITS ---
STUDY: X-RAY CHEST REASON FOR EXAM: Female, 77 years old. Hypoxemia. TECHNIQUE: Frontal and lateral views of the chest. COMPARISON: None. FINDINGS: Mild hyperinflation with atelectasis at both bases, right greater than left. There is no demonstrated pleural abnormality. Cardiomegaly. Normal mediastinum and wes. Normal visualized pulmonary arteries. Aortic tortuosity with calcification. Normal visualized thoracic spine. Normal visualized ribs, clavicles, and shoulders. Moderate-sized hiatal hernia with air-fluid level. RAD/Chest PA and Lateral IMPRESSION: Cardiomegaly with mild hyperinflation with atelectasis both bases. Moderate-sized hiatal hernia. No acute finding. Electronically Signed: Mikhail Briones MD at 10:37 EDT ,
== END | disposition home or self-care (01) ==
LOC: RAD 09:59
PROVIDERS: PCP Internal Medicine; Referring Provider Internal Medicine Pulmonary Disease; Visit Provider Internal Medicine Pulmonary Disease
DX: R09.02 Hypoxemia (principal)
CPT/HCPCS: 71046

== ENCOUNTER → 2022-11-08 | Outpatient (CLI) | payer MEDICARE, SELFPAY ==
--- NOTE | 2022-11-08 07:08 | ECHOCS_ITS ---
Reason For Study: DYSPNEA/SOB, MARTIN Procedure This was a 2D Doppler, Color Flow transthoracic echocardiogram. The study was technically difficult. Contrast injection was performed. Exam performed in department. Left Ventricle Normal LV size. Left ventricular systolic function is normal. The estimated ejection fraction is 55 %. Stage 1 diastolic dysfunction. No regional wall motion abnormalities noted. Right Ventricle Normal RV size. Normal systolic function. Atria Normal left atrium. Normal right atrium. Mitral Valve Normal mitral valve. Tricuspid Valve Normal tricuspid valve. Mild to moderate (1-2+) tricuspid valve insufficiency. Pulmonary artery systolic pressure is 35 mmHg. Aortic Valve Trisinus/trileaflet aortic valve. Pulmonic Valve Normal pulmonic valve. Great Vessels Normal aortic root. The pulmonary artery is normal size. Normal inferior vena cava. Pericardium/Pleural No pericardial effusion. Medication Diluted definity 4.0ml given slow IV push to enhance endocardial definition. MMode/2D Measurements & Calculations LVIDd: 5.4 cm IVSd: 1.1 cm Ao root diam: 3.8 cm LVIDs: 3.8 cm LVPWd: 1.1 cm RVDd: 3.6 cm FS: 28.6 % LAV(MOD-bp): 91.7 ml LVAd ap4: 30.8 cm2 LVAd ap2: 29.0 cm2 LAV(MOD-bp) Indexed: 42.5 ml/m2 LVLd ap4: 8.2 cm LVLd ap2: 8.3 cm LAV(MOD-sp2): 79.8 ml EDV(MOD-sp4): 100.5 ml EDV(MOD-sp2): 87.3 ml LAV(MOD-sp4): 96.6 ml EDV(sp4-el): 98.5 ml EDV(sp2-el): 85.9 ml LVAs ap4: 18.8 cm2 LVAs ap2: 18.1 cm2 LVLs ap4: 7.1 cm LVLs ap2: 6.8 cm ESV(MOD-sp4): 44.4 ml ESV(MOD-sp2): 39.0 ml ESV(sp4-el): 42.5 ml ESV(sp2-el): 40.7 ml EF(MOD-sp4): 55.8 % EF(MOD-sp2): 55.3 % EF(sp4-el): 56.8 % SV(MOD-sp4): 56.1 ml SV(MOD-sp2): 48.3 ml SV(sp4-el): 56.0 ml LA A4 area: 27.1 cm2 LA dimension(2D): 3.8 cm RA A4 area: 14.7 cm2 Time Measurements MV dec time: 0.17 sec Doppler Measurements & Calculations MV E max glenn: 74.4 cm/sec Lat Peak E' Glenn: 9.4 cm/sec Med Peak E' Glenn: 8.6 cm/sec MV A max glenn: 99.2 cm/sec E/E' lat: 8.0 E/E' med: 8.6 MV E/A: 0.75 Ao V2 max: 118.9 cm/sec LV V1 max: 91.4 cm/sec PA V2 max: 104.6 cm/sec Ao max P.7 mmHg LV V1 max P.3 mmHg PA V2 mean: 73.3 cm/sec Ao V2 mean: 89.9 cm/sec LV V1 mean P.8 mmHg Ao mean P.6 mmHg LV V1 mean: 63.5 cm/sec Ao V2 VTI: 30.3 cm LV V1 VTI: 24.7 cm AV (velocity ratio): 0.81 TR max glenn: 278.6 cm/sec TR max P.1 mmHg ECHO/Echo Complete W/ Contrast Interpretation Summary Normal LV size. Left ventricular systolic function is normal. The estimated ejection fraction is 55 %. Stage 1 diastolic dysfunction. Contrast injection was performed. Ordering Physician: Chet Branch Referring Physician: Fay Day Performed By: Annamarie Jones, OLIVER, RVT
--- NOTE | 2022-11-09 15:54 | STRESSREP ---
Stress Test Report Pharmacologic myocardial perfusion stress test. 77-year-old lady with a history of shortness of breath Resting EKG demonstrates sinus rhythm with a rate of 72 bpm. Resting blood pressure is 116/62 mmHg. 0.4 mg of regadenoson was infused per usual protocol followed by rapid intravenous saline flush injection. Continuous EKG monitoring was performed. The maximum heart rate was 89 bpm which was 63% of max impacted heart rate the maximum workload was 1 metabolic equivalent. At rest there were no ST or T wave changes noted to suggest ischemia and at peak infusion nonspecific ST changes were noted which did not meet the criteria for ischemia. No clinical angina is noted. The final blood pressure was 108/68 mmHg. Myocardial perfusion protocol. 15 mCi of technetium 99m sestamibi was injected at rest. 0.4 mg of regadenoson was infused per usual protocol. At peak infusion 45.0 mCi of technetium 99m sestamibi was injected stress images were obtained stress and rest images were reconstructed and compared in the short axis vertical long and horizontal long axis. Gated images were also obtained. Perfusion SPECT analysis: Review of the stress images demonstrate normal uptake of tracer noted in all areas of the myocardium. The resting images similar demonstrated normal uptake of tracer noted in all areas of the myocardium. No areas of reversibility are noted to suggest ischemia and no previous infarct is noted. Gated SPECT analysis: The gated ejection fraction is 62%. Conclusion: Normal pharmacologic myocardial perfusion stress test. Preserved ejection fraction.
== END | disposition home or self-care (01) ==
PROVIDERS: PCP Internal Medicine; Referring Provider Internal Medicine Cardiovascular Disease; Visit Provider Internal Medicine Cardiovascular Disease
DX: G47.33 Obstructive sleep apnea (adult) (pediatric) (principal); R06.02 Shortness of breath
CPT/HCPCS: 78452; 93017; 93306; A9500; Q9957; A4216; C8929; J2785

== ENCOUNTER → 2022-12-21 | Outpatient (CLI) | payer MEDICARE, SELFPAY ==
--- NOTE | 2022-12-21 09:41 | BI_ITS ---
MAMMOGRAPHY - BILATERAL SCREENING REASON FOR EXAM: Female, 77 years old. Routine annual screening examination. PERTINENT HISTORY: Sisters with breast cancer. Prior left stereotactic breast biopsies. TECHNIQUE: Digital bilateral breast bertha (3D mammographic acquisition) in the CC and MLO projections. 2-D mediolateral oblique (MLO) and craniocaudad (CC) views of both breasts were obtained. CAD: Full Field Digital Mammography with Computer Added Detection was performed. COMPARISON: Comparison is made with prior study December 20, 2021 and December 16, 2020. FINDINGS: Breast Composition: The breasts are almost entirely fatty. There are no dominant masses or suspicious calcifications. No other significant abnormalities are identified. There has been no significant change since the prior study. BI/SCRN MAMM (CAD)W/BERTHA BILAT IMPRESSION: Stable bilateral screening mammogram. Yearly follow-up mammogram recommended. (A) ASSESSMENT CATEGORY: BIRADS Category 1: Negative. A letter regarding these results will be sent to the patient by the facility within 30 days. Approximately 10% of breast cancers are not detected by mammography. A normal mammogram should not delay biopsy of a clinically suspicious abnormality. [id number] Electronically Signed: John Mahajan MD at 11:19 EDT ,
== END | disposition home or self-care (01) ==
LOC: OPBI 09:40
PROVIDERS: PCP Internal Medicine; Referring Provider Internal Medicine; Visit Provider Internal Medicine
DX: Z12.31 Encounter for screening mammogram for malignant neoplasm of breast (principal); Z80.3 Family history of malignant neoplasm of breast
CPT/HCPCS: 77063; 77067

== ENCOUNTER → 2023-03-27 | Outpatient (CLI) | payer MEDICARE, SELFPAY ==
[2023-03-27 11:19] LABS: Absolute Lymphocyte Count 1.79 X10^3/uL (0.83-4.51); Absolute Neutrophil Count 3.5 X10^3/uL (2.0-7.7); Basophil# 0.04 X10^3/uL; Basophil% 0.7 % (0-1); Eosinophil# 0.04 X10^3/uL; Eosinophils% 0.7 % (0-5); Hematocrit 36.1 % (37-47); Hemoglobin 11.4 g/dL (12.0-15.0); Lymphocyte # 1.79 X10^3/ul (0.83-4.51); Lymphocyte % 29.4 % (19-41); Mean Corp Hgb Conc 31.6 g/dL (32-36); Mean Corpuscular Hgb 31.1 pg (27.0-32.0); Mean Corpuscular Volume 98.4 fL (81-99); Mean Platelet Vol. 10.5 fl (6.2-12.0); Monocyte# 0.68 X10^3/uL; Monocyte% 11.2 % (0-10); NRBC Flagged by Analyzer 0 % (0-5); Neutrophil # 3.52 X10^3/uL (2.7-7.7); Neutrophil % 57.7 % (47-70); Platelet Count 315 K/mm3 (150-450); RBC Distribution Width CV 13.2 % (11.6-14.6); Red Blood Count 3.67 M/mm3 (4.2-5.4); White Blood Count 6.1 K/mm3 (4.4-11.0)
[2023-03-27 12:09] LABS: BNP,B-Type NATRIURETIC PEPTIDE 32.2 pg/mL (0-100)
[2023-03-27 12:25] LABS: Anion Gap 5 (5-15); BUN 18 mg/dL (7-18); BUN/Creat Ratio 17.5 RATIO (10-20); Calcium,Total 9.6 mg/dL (8.5-10.1); Chloride 107 mmol/L (98-107); Creatinine, Serum 1.03 mg/dL (0.55-1.02); EST Glomerular Filtration Rate 55 mL/min (>60); Est Glom Filt Rate - Afr Amer 66 mL/min (>60); Glucose 106 mg/dL (74-106); Potassium 4.1 mmol/L (3.5-5.1); Sodium Level 140 mmol/L (136-145)
== END | disposition home or self-care (01) ==
LOC: LAB 10:35
PROVIDERS: PCP Internal Medicine; Referring Provider Nurse Practitioner Gerontology; Visit Provider Nurse Practitioner Gerontology
DX: R06.02 Shortness of breath (principal); R53.83 Other fatigue
CPT/HCPCS: 36415; 80048; 83880; 84443; 85025

== ENCOUNTER → 2023-05-16 | Outpatient (CLI) | payer MEDICARE, SELFPAY ==
--- NOTE | 2023-05-16 15:17 | BD_ITS ---
STUDY: DUAL ENERGY X-RAY ABSORPTIOMETRY / DXA REASON FOR EXAM: Female, 78 years old. [id number] TECHNIQUE: Bone Mineral Density (BMD) measurements of lumbar spine and right hip were obtained. COMPARISON: Comparison is made with prior study December 23, 2019. FINDINGS: Lumbar Spine (L1-L4): g/cm2 (0.892) / T-score (-1.5) / Z-score (1.2) Findings are suggestive of osteopenia with a low fracture risk. Right Femur Total: g/cm2 (0.679) / T-score (-2.2) / Z-score (-0.1) Right Femoral Neck: g/cm2 (0.687) / T-score (-1.5) / Z-score (0.8) The T-Scores on the most recent prior examination were: Lumbar Spine (L1-L4): There has been worsening of bone density since the previous examination. Right Femur Total: which represents a worsening of 9%. BD/Dexa Bone Density Study IMPRESSION: The patient is considered osteopenic as outlined below according to World Larry Organization (WHO) criteria with a high fracture risk. There has been worsening of bone density since the previous examination. Reference Information: The T-score is the number of standard deviations above or below the standard which is normal for young adults at their peak bone mineral density. The World Health Organization (WHO) interprets the T-scores as follows: Above -1 Normal bone density Between -1 and -2.5 Osteopenia Equal to / or below -2.5 Osteoporosis As a practical clinical guideline, osteopenia may be graded as follows: Mild -1 through -1.5 Moderate -1.6 through -2.0 Severe -2.1 through -2.4 The Z-score is the number of standard deviations above or below age-matched controls. A Z-score of less than -1.5 would be considered abnormal. References: 1. NIH Osteoporosis and Related Bone Diseases www osteo.org 2. International Society for Clinical Densitometry www iscd.org 3. National Osteoporosis Foundation www nof.org Electronically Signed: John Mhaajan MD at 9:39 EDT ,
== END | disposition home or self-care (01) ==
LOC: OPBD 15:15
PROVIDERS: PCP Internal Medicine; Referring Provider Internal Medicine; Visit Provider Internal Medicine
DX: Z78.0 Asymptomatic menopausal state (principal)
CPT/HCPCS: 77080

== ENCOUNTER 2023-09-20 07:57 | Outpatient (CLI) | payer MEDICARE, SELFPAY ==
[2023-09-20 08:17] VITALS: BP 142/56; PULSE 75; RESP 18; TEMP 36.2; O2SAT 95; BMI 32.5
[2023-09-20 08:53] VITALS: BP 117/56; PULSE 69; RESP 16; TEMP 36.4; O2SAT 94
[2023-09-20 09:53] VITALS: BP 131/58; PULSE 73; RESP 16; TEMP 36.1
[2023-09-20] MEDS: Furosemide 20 MG/2 ML VIAL IV (10:54)
[2023-09-20 11:04] VITALS: BP 110/61; PULSE 82
[2023-09-20 11:19] VITALS: BP 124/57; RESP 16; TEMP 35.7; O2SAT 92
[2023-09-20 12:21] VITALS: BP 142/47; PULSE 85; RESP 16; TEMP 36.1; O2SAT 96
== END 2023-09-20 23:59 | disposition home or self-care (01) ==
LOC: MEDOUTP 07:58
PROVIDERS: PCP Internal Medicine; Referring Provider Internal Medicine; Visit Provider Internal Medicine
DX: D64.9 Anemia, unspecified (principal)
CPT/HCPCS: 36430; 86850; 86900; 86901; 86920; J7040; P9016; A4216; J1940

== ENCOUNTER → 2023-09-24 | Outpatient (CLI) | payer MEDICARE, SELFPAY ==
[2023-09-24 10:16] LABS: Hemoglobin 8.7 g/dL (12.0-15.0)
== END | disposition home or self-care (01) ==
LOC: LABSPEC 09:52
PROVIDERS: PCP Internal Medicine; Referring Provider Internal Medicine; Visit Provider Internal Medicine
DX: D64.9 Anemia, unspecified (principal)
CPT/HCPCS: 85014; 85018

== ENCOUNTER → 2023-12-27 | Outpatient (CLI) | payer MEDICARE, SELFPAY | END | disposition home or self-care (01) | LOC: OPBI 14:47 | PROVIDERS: PCP Internal Medicine; Referring Provider Internal Medicine; Visit Provider Internal Medicine | DX: Z12.31 Encounter for screening mammogram for malignant neoplasm of breast (principal) | CPT/HCPCS: 77063; 77067 ==

== ENCOUNTER → 2024-02-20 | Outpatient (CLI) | payer MEDICARE, SELFPAY ==
[2024-02-20 12:22] LABS: Absolute Lymphocyte Count 1.39 X10^3/uL (0.83-4.51); Absolute Neutrophil Count 4.8 X10^3/uL (2.0-7.7); Basophil# 0.06 X10^3/uL; Basophil% 0.9 % (0-1); Eosinophil# 0.07 X10^3/uL; Hematocrit 37.7 % (37-47); Hemoglobin 11.6 g/dL (12.0-15.0); Lymphocyte # 1.39 X10^3/ul (0.83-4.51); Lymphocyte % 20.1 % (19-41); Mean Corp Hgb Conc 30.8 g/dL (32-36); Mean Corpuscular Hgb 29.9 pg (27.0-32.0); Mean Corpuscular Volume 97.2 fL (81-99); Mean Platelet Vol. 10.4 fl (6.2-12.0); Monocyte# 0.55 X10^3/uL; Monocyte% 7.9 % (0-10); NRBC Flagged by Analyzer 0 % (0-5); Neutrophil # 4.84 X10^3/uL (2.7-7.7); Neutrophil % 69.8 % (47-70); Platelet Count 292 K/mm3 (150-450); RBC Distribution Width SD 57.6 fl (35.1-43.9); Red Blood Count 3.88 M/mm3 (4.2-5.4); White Blood Count 6.9 K/mm3 (4.4-11.0)
[2024-02-20 12:34] LABS: Iron 90 ug/dL (50-170)
== END | disposition home or self-care (01) ==
PROVIDERS: PCP Internal Medicine; Referring Provider Internal Medicine Gastroenterology; Visit Provider Internal Medicine Gastroenterology
DX: D50.9 Iron deficiency anemia, unspecified (principal)
CPT/HCPCS: 36415; 83540; 85025

== ENCOUNTER → 2024-04-16 | Outpatient (CLI) | payer MEDICARE, SELFPAY ==
--- NOTE | 2024-04-16 15:04 | VDLE_ITS ---
Reason For Study Reason For Study: Left leg swelling RIGHT LEFT CFV is compressible, spontaneous, phasic, competent GSV is normal. and demonstrates normal augmentation. CFV is compressible, spontaneous, phasic, competent, Procedure and demonstrates normal augmentation. This is a venous duplex using B-mode, color flow and FV is compressible, spontaneous, phasic, competent spectral Doppler. and demonstrates normal augmentation. Exam performed in department. POP V is compressible, spontaneous, phasic, competent A preliminary report was called and/or faxed to and demonstrates normal augmentation. Shay. T/P Trunk is compressible. PTV is compressible. LT PerV is compressible. Nonvascularized structure noted left proximal calf muscle. VL/Venous Duplex US, Unilateral Interpretation Summary Deep veins of the left lower extremity are patent and compressible segmentally. There is no evidence of left lower extremity deep vein thrombosis. Valvular competence appears intact within the p roximal deep venous system on the left . The left great saphenous vein appears patent and compressible segmentally. The right common femoral vein is patent and compressible . A non-vascular, hypoechoic structure is noted in the left proxim al calf. This may represent a hematoma or seroma. Clinical correlation is advised. Ordering Physician: Fay Day Referring Physician: Fay Day Performed By: Melvina Padilla RVT
== END | disposition home or self-care (01) ==
LOC: CVS 14:59
PROVIDERS: PCP Internal Medicine; Referring Provider Internal Medicine; Visit Provider Internal Medicine
DX: M79.662 Pain in left lower leg (principal)
CPT/HCPCS: 93971

== ENCOUNTER → 2024-04-29 | Outpatient (CLI) | payer MEDICARE, SELFPAY ==
--- NOTE | 2024-04-28 09:10 | RAD_ITS ---
PROCEDURE: ABDOMEN SINGLE VIEW REASON FOR EXAM: REDUDANT COLON TECHNIQUE: Single frontal view of the abdomen was obtained abdomen. COMPARISON: None FINDINGS: No visible bowel dilatation. Colonic stool burden is moderate. Suspect a 9 mm calculus projecting over the left kidne. 6 mm right pelvic calculus. Additional punctate presumed pelvic phleboliths bilaterally. Suspect demineralization. Lumbar spondylosis and mild dextroscoliosis. Partially imaged left hip arthroplasty. Advanced degenerative changes of the right hip are partially imaged. RAD/Abdomen Single View IMPRESSION: 1. No visible acute abnormality. Moderate colonic stool burden. 2. Suspect a 9 mm calculus projecting over the left kidney, potential renal jigar culus versus intraluminal material within overlying bowel. Additional presumed pelvic phleboliths up to 6 mm on the righ t. If there is concern for obstructive uropathy, recommend CT. 3. Additional description as above. Reading Location: [id number]
--- NOTE | 2024-04-29 09:19 | RAD_ITS ---
PROCEDURE: BARIUM ENEMA W/AIR CONTRAST REASON FOR EXAM: NASEEM/REDUNDANT COLON TECHNIQUE: Barium was introduced retrograde through the rectum. The colon was opacified. FLUOROSCOPIC TIME: 1 minute and 35 seconds. FLUOROGRAPHIC IMAGES: 9 COMPARISON: None. FINDINGS: There is redundancy of the sigmoid colon. No evidence of antegrade or retrograde obstruction to the flow of contrast. Scattered residual fecal material is seen throughout the colon. A small polyp or filling defect can not be excluded due to the residual fecal material. This is more prominent on the right hemicolon. RAD/Barium Enema w/Air Contrast IMPRESSION: Residual fecal material limiting the evaluation for small mucosal lesions. Redundancy of the sigmoid colon. No evidence of antegrade or retrograde obstruction to the flow of contrast. Reading Location: [place] [id number]
== END | disposition home or self-care (01) ==
PROVIDERS: PCP Internal Medicine; Referring Provider Internal Medicine Gastroenterology; Visit Provider Internal Medicine Gastroenterology
DX: Q43.8 Other specified congenital malformations of intestine (principal); D50.9 Iron deficiency anemia, unspecified
CPT/HCPCS: 74018; 74280

== ENCOUNTER → 2024-05-25 | Outpatient (CLI) | payer MEDICARE, SELFPAY ==
--- NOTE | 2024-05-25 16:22 | MRI_ITS ---
EXAM: Noncontrast MRI of the left knee. CLINICAL HISTORY: Acute left knee pain, with posterior swelling. Pain for 2 months. No history of prior left knee surgery provided. COMPARISON: Left knee radiographs 04/23/2024 TECHNIQUE: Multiplanar, multisequence MRI images of the left knee were obtained without IV FINDINGS: The patellar ligament and included distal quadriceps tendon are intact. There is a large joint effusion. No evidence of lipohemarthrosis. There is mild/moderate peripheral edema in the subcutaneous fat of the left knee. No acute fracture or abnormal marrow replacement process of the left knee. Heterogeneous appearance of the marrow could be due to osteopenia or areas of red marrow reconversion. Moderate articular cartilage loss/thinning of the medial and lateral compartments, greatest involving the weight-bearing surface medial femoral condyle. No focal osteochondral lesion is demonstrated. The cruciate and collateral ligaments are intact. No evidence of transient patellar dislocation. The patellar retinacula and popliteus muscle/tendon are intact. There are some lobulated areas of probable residual popliteal cyst in the popliteal fossa, measuring up to 5 cm craniocaudad. Mild articular cartilage loss/thinning of the patellar apex. No discrete lateral meniscal tear. There is an oblique tear involving the posterior horn and posterior horn/body segment junction medial meniscus, extending to the inferior articular surface. The posterior root attachments appear intact. There is partial extrusion of the body segment medial meniscus from the joint space. There is some mild patchy marrow edema involving the posterior lateral tibial plateau, without discrete fracture line. MRI/Lower Ext Joint Only (Routine) IMPRESSION: Mild patchy marrow edema posterior lateral aspect of the tibial plateau, withou t discrete fracture line. There is no acute fracture or dislocation of the left knee. No internal ligamentous derangement. Large joint effusion. No discrete lateral meniscal tear. Oblique tear of the posterior horn and post erior horn/body segment junction medial meniscus, extending to the inferior articular surface. No flipped meniscal fragment. Mild/moderate articular cartilage loss/thinning of the medial and lateral melissa rtments. Mild articular cartilage thinning of the patellar apex. Nonspecific edema in the subcutaneous fat of the left knee. Small residual components of probable popliteal cyst, measuring up to 5 cm cran iocaudad. Reading Location: [facility]
== END | disposition home or self-care (01) ==
PROVIDERS: PCP Internal Medicine; Referring Provider Internal Medicine; Visit Provider Internal Medicine
DX: M25.562 Pain in left knee (principal)
CPT/HCPCS: 73721

== ENCOUNTER → 2024-06-18 | Outpatient (CLI) | payer MEDICARE, SELFPAY ==
--- NOTE | 2024-06-18 11:50 | CT_ITS ---
PROCEDURE: ABDOMEN/PELVIS WITHOUT CONT 06/18/2024 REASON FOR EXAM: KIDNEY STONE TECHNIQUE: Abdomen and pelvis CT without intravenous contrast. Noncontrast technique limits evaluation of the abdominal and pelvic viscera. Coronal and Sagittal reconstruction series were provided. One or more dose reduction techniques were used (e.g., Automated exposure control, adjustment of the mA and/or kV according to patient size, use of iterative reconstruction technique). PATIENT PREPARATION: Per protocol ORAL CONTRAST TYPE: None. COMPARISON: Abdominal radiograph 04/28/2024. FINDINGS: Lung bases: Bibasilar atelectasis. Small right lower lobe pulmonary nodule measuring 0.4 cm (series 2, image 23). Large hiatal hernia. The heart is normal in size with coronary artery calcifications. Liver: The unopacified liver is normal in size with scattered hypodensities, likely cysts. No biliary ductal dilation. Gallbladder: Calcified stone within the gallbladder. Spleen: Unremarkable. Pancreas: The unopacified pancreas is atrophic. Adrenals: No adrenal mass. Kidneys: No hydronephrosis or nephrolithiasis. Bladder: Mildly distended and grossly unremarkable. Reproductive Organs: Visualization of the pelvis is limited by adjacent streak artifact. Prior hysterectomy. Bowel: The bowel loops are normal in caliber. No ascites or pneumoperitoneum. Normal appendix. Lymph nodes: Visualization is limited without the use of IV contrast. No lymphadenopathy. Vasculature: Mild calcific plaque of the aortoiliac vessels. Bones: Thoracolumbar spondylosis. 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 CT/Abdomen/Pelvis without Cont IMPRESSION: 1. No acute abdominopelvic finding. No nephrolithiasis. Visualization of the lower pelvis is limited by streak artifact. 2. Cholelithiasis. No evidence acute cholecystitis. 3. Small right lower lobe pulmonary nodule, likely noncalcified granuloma or sc arring. If patient is high risk, optional CT chest in 12 months could be obtained for further evaluation. Reading Location: [id number]
== END | disposition home or self-care (01) ==
LOC: CT 11:46
PROVIDERS: PCP Internal Medicine; Referring Provider Urology; Visit Provider Urology
DX: N20.0 Calculus of kidney (principal)
CPT/HCPCS: 74176

== ENCOUNTER → 2025-01-22 | Outpatient (CLI) | payer MEDICARE, SELFPAY ==
--- NOTE | 2025-01-22 14:50 | BI_ITS ---
EXAM: SCRN MAMM (CAD)W/BERTHA BILAT DATE: 01/22/2025 CLINICAL HISTORY: F, Age 79 y/o , SCREENING TECHNIQUE: Procedure Code: [id number] Modality: MG Procedure: SCRN MAMM (CAD)W/BERTHA BILAT COMPARISON: Prior exam(s) were compared FINDINGS: TISSUE DENSITY: There are scattered areas of fibroglandular density. Bilateral Breast Mammographic Findings: No significant masses, calcifications or other abnormalities are identified. BI/SCRN MAMM (CAD)W/BERTHA BILAT IMPRESSION: No mammographic evidence of malignancy. OVERALL FINAL ASSESSMENT BI-RADS 1: NEGATIVE. RECOMMENDATION: Routine annual follow-up in 1 Year Additional Recommendation none A letter with findings and recommendations will be mailed to the patient. Reading Location: [id number]
== END | disposition home or self-care (01) ==
LOC: OPBI 14:48
PROVIDERS: PCP Internal Medicine; Referring Provider Internal Medicine; Visit Provider Internal Medicine
DX: Z12.31 Encounter for screening mammogram for malignant neoplasm of breast (principal)
CPT/HCPCS: 77063; 77067